=== PATIENT | female | born 2000 | race Caucasian/White ===

== ENCOUNTER 2020-02-20 05:19 | Emergency (ER) | payer OTHER, SELFPAY ==
[2020-02-20] VITALS (8 sets, daily range): BP systolic 103–125; BP diastolic 55–89; PULSE 63–92; RESP 12–16; TEMP 36.7; O2SAT 95–98
--- NOTE | ~2020-02-20 | CT_ITS ---
EXAMINATION: CTA chest PE abdomen pel DATE: 02/20/2020 07:50 CDT INDICATION: Left abdomen pain and dyspnea. TECHNIQUE: Computed tomographic angiography (CTA) of the chest, abdomen and pelvis was performed with 100 mL Omnipaque-350 intravenous contrast. The dose-length product was 1613.01 mGy-cm. Maximum inten sity projection 3D-reconstructions of the aorta and other arteries were constructed by the [employer] st on a separate workstation. Automated exposure control and iterative reconstruction technique were employed. COMPARISON: CT dated 02/01/2019 FINDINGS: Chest: Study is technically adequate without evidence for pulmonary embolism. No significant pleural or michael cardial effusion. No evidence for thoracic aortic aneurysm or dissection. No focal airspace consolida tion. No pleural effusion. No pneumothorax. Abdomen/pelvis: Small focus of epiploic appendagitis adjacent to distal sigmoid colon. Fatty infiltration of the live r. Status post cholecystectomy. Nonobstructive bowel gas pattern. No free air. No abscess. No evidenc e for diverticulitis or appendicitis. Small amount of free fluid in the pelvis. Small hypodense lesio n right hepatic lobe, most likely cyst or hemangioma. IMPRESSION: 1. No acute cardiopulmonary disease. No evidence for pulmonary embolism. 2: Small focus of epiploic appendagitis adjacent to distal sigmoid colon. Reviewed, dictated and finalized at location A.
[2020-02-20 05:44] LABS: Basophils Percent Auto 0.2 % (0.2-1.2); Eosinophils Absolute Auto 0.1 K/mm3 (0-0.3); Eosinophils Percent Auto 1.3 % (0-4.4); Hematocrit 39.5 % (37.0-47.0); Hemoglobin 13.2 g/dL (12.0-15.0); Immature Granulocyte Absolute 0.01 K/mm3 (0.00-0.031); Immature Granulocyte Percent A 0.1 % (0-0.5); Lymphocytes Absolute Auto 2.65 K/mm3 (0.9-3.2); Lymphocytes Percent Auto 31.5 % (18.3-44.2); Mean Corpuscular HGB Conc 33.4 g/dl (32-36); Mean Corpuscular Hemoglobin 29.3 pg (26-34); Mean Corpuscular Volume 87.6 fl (80-100); Mean Platelet Volume 10.9 fl (7.4-10.4); Monocytes Absolute Auto 0.5 K/mm3 (0.1-0.6); Monocytes Percent Auto 6.4 % (2.6-8.5); Neutrophils Absolute Auto 5.1 K/mm3 (1.3-6.7); Neutrophils Percent Auto 60.5 % (45.5-73.1); Platelet Count Result 350 k/mm3 (150-375); Red Blood Count 4.51 M/mm3 (4.2-5.4); Red Cell Distribution Width 12.9 % (11.5-14.5); White Blood Count 8.4 K/mm3 (4.5-10.0)
[2020-02-20 05:46] LABS: Add Urine Microscopic? NO; Appearance Urine Clear (Clear); Bilirubin Urine Negative (Negative); Blood Urine Negative (Negative); Color Urine Yellow (Yellow); Glucose Urine UA Negative (Negative); Ketones Urine Negative (Negative); Leukocyte Esterase Ur Negative LEU/UL (Negative); Nitrate Urine Negative (Negative); Protein Urine Negative (Negative); Specific Grav Ur 1.024 (1.001-1.035); Urobilinogen Urine Negative mg/dL (<2.0)
--- NOTE | 2020-02-20 05:51 | ED.ABDPAIN ---
HPI - Abdominal Pain General Chief Complaint: Abdominal Pain Stated Complaint: abd cramps Time Seen by Provider: 02/20/20 05:21 Source: patient Mode of arrival: ambulatory Limitations: no limitations History of Present Illness HPI narrative: This patient is a 20 year old female with history of pancreatitis who presents for evaluation of left abdominal pain. She states she developed pain to left upper abdomen and left lower abdomen yesterday. Her pain has been constant and it has gradually worsened. She developed nausea and she had 2 episodes of emesis on her way to ER. She has not taken anything for pain . She denies urinary symptoms, fever, or chills. This does feel similar to previous episodes of pancreatitis MD elicited complaint: abdominal pain Related Data Home Medications Medication Instructions Recorded Confirmed propranolol 40 mg tablet 40 mg PO Q12H 08/14/19 Allergies Allergy/AdvReac Type Severity Reaction Status Date / Time ketorolac Allergy Severe Anaphylactic Verified 02/20/20 05:28 Shock tramadol Allergy Unknown Unknown Verified 02/20/20 05:28 Review of Systems Review of Systems: All systems reviewed & are unremarkable except as noted in HPI and below Constitutional: Constitutional: Reports chills, Denies fever(s) and Denies weakness Respiratory: Respiratory: Denies cough Gastrointestinal: Gastrointestinal: Reports abdominal pain, Denies diarrhea, Reports nausea and Reports vomiting Genitourinary: Genitourinary: Denies hematuria, Denies nocturia and Denies dysuria PMF Past Medical History Medical History (Updated 02/20/20 @ 07:41 by Daniella Mike MD) Anxiety Migraine Pancreatitis Surgical History Surgical History History of cholecystectomy History of tonsillectomy Social History Social History Smoking status: Never smoker Second hand tobacco smoke exposure: No Alcohol intake: never Exam Narrative: Exam Narrative: GENERAL: Well-appearing, well-nourished, and in no acute distress. HEAD: Normocephalic, atraumatic EYES: PERRLA and EOMI, conjunctiva clear without discharge THROAT:Mucous membranes moist, Oropharynx normal without erythema, exudate, peritonsillar swelling or fluctuance NECK: Supple, without lymphadenopathy or mass RESPIRATORY: No respiratory distress, Airway patent, Respirations non-labored, Clear to auscultation without rales, rhonchi or wheeze HEART: Regular rate and rhythm. No murmur heard. Normal peripheral pulses. ABDOMEN: Soft,LUq, LLQ, epigastric, nondistended, normal active bowel sounds. No masses. No rebound or guarding, No organomegaly. EXTREMITIES: No edema, normal strength with full range of motion. SKIN: Warm, dry, normal color without rash NEURO: Alert and oriented x3. CN 2-12 grossly intact. No focal deficits. PSYCH: Normal mood and affect. Course Reevaluation(s) Reevaluation #1: PAtient states she develop substernal chest pain sharp after pain medication and then her pain resolved. She is concerned as she had similar pain when she was diagnosed with PE Date: 02/20/20 Time: 06:14 Reevaluation #2: PAtient states she feels better Date: 02/20/20 Time: 07:36 Vital Signs Vital signs: Vital Signs Temperature 98.1 F 02/20/20 05:23 Pulse Rate 92 02/20/20 05:23 Respiratory Rate 15 02/20/20 05:23 Blood Pressure 125/89 02/20/20 05:23 Pulse Oximetry 97 02/20/20 05:23 Temperature 98.1 F 02/20/20 05:23 Pulse Rate 87 02/20/20 07:13 Respiratory Rate 16 02/20/20 07:13 Blood Pressure 107/72 02/20/20 07:13 Pulse Oximetry 98 02/20/20 07:13 MDM - Abdominal Pain Lab Data Attestation: I reviewed the patient's lab results. Result diagrams: 02/20/20 05:34 02/20/20 05:34 Labs: Lab Results 02/20/20 02/20/20 02/20/20 Range/Units 05:34 05:34 05:34
[2020-02-20] MEDS: ONDANSETRON INJ 4 MG/2 ML VIAL IV PUSH (05:56)
[2020-02-20 05:57] LABS: Potassium 3.7 mmol/L (3.4-5.0)
[2020-02-20] MEDS: LACTATED RINGERS 1,000 ML 999 ML IV CONT (05:58)
[2020-02-20] MEDS: HYDROMORPHONE HCL 1 MG/ML INJ IV PUSH (05:58)
[2020-02-20 05:59] LABS: Alanine Aminotransferase 18 U/L (4-35); Albumin Level 4.3 g/dL (3.5-5.1); Alkaline Phosphatase 80 U/L (38-126); Aspartate Amino Transferase 24 U/L (14-36); Bilirubin,Total 0.1 mg/dL (0.2-1.3); Blood Urea Nitrogen 12 mg/dL (7-17); Calcium 9.2 mg/dL (8.4-10.2); Carbon Dioxide 28 mmol/L (22-30); Chloride 102 mmol/L (98-107); Estimated Glomerular Filt Rate > 60; Glucose 97 mg/dL (65-105); Lipase 65 U/L (23-300); Sodium 136 mmol/L (137-145)
--- NOTE | 2020-02-20 06:14 | PC.NURSE ---
Pt. to CT
--- NOTE | 2020-02-20 06:35 | ECG_ITS ---
Measurements Intervals [place] Rate: 68 P: 34 DE: 157 QRS: 34 QRSD: 101 T: 35 QT: 433 QTc: 462 Interpretive Statements SINUS RHYTHM INCOMPLETE RIGHT BUNDLE BRANCH BLOCK BASELINE ARTIFACT- I, II BORDERLINE ECG Electronically Signed On 02-20-2020 7:14:52 CDT by Georges Browning D.O.
== END 2020-02-20 08:12 | disposition home or self-care (01) ==
PROVIDERS: Emergency Provider General Practice; PCP Family Medicine
DX: K63.89 Other specified diseases of intestine (principal); Z86.711 Personal history of pulmonary embolism; I45.10 Unspecified right bundle-branch block
CPT/HCPCS: 36415; 71275; 74177; 80053; 81003; 81025; 83690; 85025; 93005; 96361; 96374; 96375; 99284; J1170; J2405; J7120; Q9967

== ENCOUNTER 2020-02-20 17:56 | Emergency (ER) | payer OTHER, SELFPAY ==
[2020-02-20 17:58] VITALS: BP 116/76; PULSE 80; RESP 18; TEMP 36.2; O2SAT 100
[2020-02-20 18:33] LABS: Basophils Percent Auto 0.5 % (0.2-1.2); Eosinophils Absolute Auto 0.1 K/mm3 (0-0.3); Eosinophils Percent Auto 2.1 % (0-4.4); Hematocrit 39.1 % (37.0-47.0); Hemoglobin 12.9 g/dL (12.0-15.0); Immature Granulocyte Absolute 0.02 K/mm3 (0.00-0.031); Immature Granulocyte Percent A 0.3 % (0-0.5); Lymphocytes Absolute Auto 1.63 K/mm3 (0.9-3.2); Lymphocytes Percent Auto 26.9 % (18.3-44.2); Mean Corpuscular Hemoglobin 29.1 pg (26-34); Mean Corpuscular Volume 88.1 fl (80-100); Monocytes Absolute Auto 0.4 K/mm3 (0.1-0.6); Monocytes Percent Auto 6.6 % (2.6-8.5); Neutrophils Absolute Auto 3.8 K/mm3 (1.3-6.7); Neutrophils Percent Auto 63.6 % (45.5-73.1); Platelet Count Result 321 k/mm3 (150-375); Red Blood Count 4.44 M/mm3 (4.2-5.4); White Blood Count 6.1 K/mm3 (4.5-10.0)
[2020-02-20 18:45] LABS: Add Urine Microscopic? NO; Appearance Urine Clear (Clear); Bilirubin Urine Negative (Negative); Blood Urine Negative (Negative); Color Urine Yellow (Yellow); Glucose Urine UA Negative (Negative); Ketones Urine Negative (Negative); Leukocyte Esterase Ur Negative LEU/UL (Negative); Nitrate Urine Negative (Negative); Protein Urine Negative (Negative); Specific Grav Ur 1.028 (1.001-1.035); Urobilinogen Urine Negative mg/dL (<2.0)
[2020-02-20 18:45] LABS: Alanine Aminotransferase 18 U/L (4-35); Alkaline Phosphatase 84 U/L (38-126); Aspartate Amino Transferase 26 U/L (14-36); Bilirubin,Total 0.4 mg/dL (0.2-1.3); Blood Urea Nitrogen 8 mg/dL (7-17); Calcium 8.5 mg/dL (8.4-10.2); Carbon Dioxide 27 mmol/L (22-30); Chloride 104 mmol/L (98-107); Estimated CRCL calculation 159 ml/min; Estimated Glomerular Filt Rate > 60; Glucose 90 mg/dL (65-105); Lipase 53 U/L (23-300); Sodium 136 mmol/L (137-145)
--- NOTE | 2020-02-20 18:46 | ED.ABDPAIN ---
HPI - Abdominal Pain General Chief Complaint: Abdominal Pain Stated Complaint: Abd pain Time Seen by Provider: 02/20/20 18:28 Source: patient History of Present Illness HPI narrative: Patient is 20 years old white female presents with left lower abdominal pain started 2 days ago, sharp shooting pain, varies in intensity according to her position and the way she sits or stands. Associated with nausea and vomiting up to 4 times today. Last menstrual. 1 week ago. Patient came to our emergency room and was discharged early this morning with a diagnosis of epiploic appendagitis. Patient been taking Tylenol at home without any improvement. Back to the emergency room for uncontrolled abdominal pain. Related Data Home Medications Medication Instructions Recorded Confirmed propranolol 40 mg tablet 40 mg PO PRN PRN 08/14/19 Allergies Allergy/AdvReac Type Severity Reaction Status Date / Time ketorolac Allergy Severe Anaphylactic Verified 02/20/20 18:01 Shock tramadol Allergy Unknown Unknown Verified 02/20/20 18:01 Review of Systems Review of Systems: Narrative: CONSTITUTIONAL: Denies fever, chills, or sweats. EYES: Denies visual changes, redness, or discharge. ENT: Denies rhinorrhea, congestion, sore throat, or otalgia. CARDIOVASCULAR: Denies chest pain, palpitations, or edema. RESPIRATORY: Denies cough or dyspnea. GASTROINTESTINAL: Abdominal pain and vomiting GENITOURINARY: Denies dysuria or hematuria. SKIN: Denies rash or itching. MUSCULOSKELETAL: Denies back pain, joint pain, or myalgia. NEUROLOGIC: Denies headache, numbness, or weakness. PSYCHIATRIC: Denies anxiety or depression. [facility] Past Medical History Medical History Anxiety Migraine Pancreatitis Surgical History Surgical History History of cholecystectomy History of tonsillectomy Family History Family History Father Diabetes mellitus Patient's father is in good health Grandparent Diabetes mellitus Hypertension Mother Patient's mother is in good health Sibling Patient's sister is in good health Social History Social History Smoking status: Never smoker Second hand tobacco smoke exposure: No Alcohol intake: never Gender identity (if verbalized by the patient): Female Exam Narrative: Exam Narrative: General appearance: Well-developed, well-nourished. Patient laying down in bed, looks comfortable, no family member at the bedside. Skin: Normal color Head: Normocephalic, nontraumatic Eyes: Clear conjunctiva ENT: Oropharynx normal, ears normal, nose normal Neck: Supple, nontender Chest and respiratory: Airway patent, no respiratory distress, no accessory muscle use Heart: Regular rate/rhythm Abdomen: Soft, left lower quadrant tenderness, no guarding or rebound, epigastric and right upper quadrant tenderness., no organomegaly, quiet bowel sounds Vascular: Normal peripheral pulses, normal capillary refill. Musculoskeletal: Normal range of motion, nontender back Neurologic: Alert and oriented ?3, PIPE FITTER SOFT COPPER is normal as tested, no gross motor deficit Course Course Emergency Course: Improving. Patient reports it is okay to take ibuprofen, cannot take Toradol because causing tightness in her throat. Vital Signs Vital signs: Vital Signs Temperature 36.2 C L 02/20/20 17:58 Pulse Rate 80 02/20/20 17:58 Respiratory Rate 18 02/20/20 17:58 Blood Pressure 116/76 02/20/20 17:58 Pulse Oximetry 100 02/20/20 17:58 Temperature 36.2 C L 02/20/20
[2020-02-20 19:31] VITALS: BP 122/80; PULSE 80; RESP 20; TEMP 36.7; O2SAT 99
== END 2020-02-20 19:33 | disposition home or self-care (01) ==
PROVIDERS: Emergency Medicine; Emergency Provider Emergency Medicine; PCP Family Medicine
DX: K63.89 Other specified diseases of intestine (principal)
CPT/HCPCS: 36415; 80053; 81003; 81025; 83690; 85025; 99283

== ENCOUNTER 2020-05-05 12:42 | Outpatient (CLI) | payer OTHER, SELFPAY ==
--- NOTE | ~2020-05-05 | XR_ITS ---
EXAMINATION: XR abdomen/kub 1V DATE: 05/05/2020 13:01 INDICATION: Inability to urinate. TECHNIQUE: A supine view of the abdomen on 2 radiographs was obtained. COMPARISON: CT dated 02/20/2020 FINDINGS: No suspicious calcific a cyst in the abdomen or pelvis. Moderate amount of stool throughout the colon . No dilated gas-filled loops of bowel to suggest obstruction. Minimal lumbar dextrocurvature. IMPRESSION: 1. Normal bowel gas pattern. No evident urolithiasis. Reviewed, dictated and finalized at location B.
== END 2020-05-05 12:43 | disposition home or self-care (01) ==
PROVIDERS: PCP Family Medicine; Visit Provider Physician Assistant
DX: R39.9 Unspecified symptoms and signs involving the genitourinary system (principal)
CPT/HCPCS: 74018

== ENCOUNTER 2020-05-06 14:13 | Emergency (ER) | payer OTHER, SELFPAY ==
--- NOTE | ~2020-05-06 | CT_ITS ---
EXAMINATION: CT abdomen pelvis w con DATE: 05/06/2020 17:38 INDICATION: Lower abdominal pain TECHNIQUE: Computed tomography (CT) of the abdomen and pelvis was performed with 100 cc Omnipaque 350 intravenous contrast. Automated exposure control and iterative reconstruction technique were employe d. Exam dose: 683.66 mGy-cm total exam DLP. COMPARISON: 02/20/2020 CTA chest abdomen pelvis FINDINGS: The lung bases are clear. Normal heart size. No pericardial or pleural effusion. Status post cholecystectomy. 5 mm right hepatic cyst. The liver, spleen, pancreas, and adrenal glands and kidneys are otherwise un remarkable. Normal caliber of the abdominal aorta. No intraperitoneal or retroperitoneal or pelvic mass lesion or adenopathy or ascites. Normal appendix. No bowel obstruction, bowel wall thickening, pneumatosis or intraperitoneal free air . The uterus is unremarkable. 2.2 x 3.3 cm right ovarian cyst. Transitional lumbosacral vertebra. IMPRESSION: 2.2 x 3.3 cm right ovarian cyst 5 mm hepatic cyst Status post cholecystectomy Reviewed, dictated and finalized at [facility]. Reviewed, dictated and finalized at location A.
[2020-05-06 14:19] VITALS: BP 143/82; PULSE 104; RESP 16; TEMP 36.4; O2SAT 100
[2020-05-06 15:19] LABS: Add Urine Microscopic? YES; Appearance Urine Clear (Clear); Bilirubin Urine Negative (Negative); Blood Urine Negative (Negative); Color Urine Yellow (Yellow); Glucose Urine UA Negative (Negative); Ketones Urine Negative (Negative); Leukocyte Esterase Ur 1+ LEU/UL (Negative); Mucus Urine Heavy /lpf; Nitrate Urine Negative (Negative); Protein Urine Negative (Negative); Specific Grav Ur 1.027 (1.001-1.035); Squamous Epithelial Cell Urine Many /hpf (Few); Urobilinogen Urine Negative mg/dL (<2.0)
--- NOTE | 2020-05-06 16:37 | ED.ABDPAIN ---
HPI - Abdominal Pain General Chief Complaint: Urogenital-Female Stated Complaint: difficulty urinating Time Seen by Provider: 05/06/20 14:39 Source: patient Mode of arrival: ambulatory Limitations: no limitations History of Present Illness HPI narrative: 20 years old white female, complaining of lower abdominal pain with no urination over the last 3 days. Patient reports been voiding with drops of urine, which is very painful over the last 3 days. Patient reports a drink enough fluids without good urine output. Associated with lower abdominal pain radiating to the lower back pain. Patient denies any fever, chills, nausea, vomiting. Patient denies similar symptoms. Patient also denies any vaginal bleeding or discharge. Related Data Allergies Allergy/AdvReac Type Severity Reaction Status Date / Time ketorolac Allergy Severe Anaphylactic Verified 05/06/20 14:22 Shock Review of Systems Review of Systems: Narrative: CONSTITUTIONAL: Denies fever, chills, or sweats. EYES: Denies visual changes, redness, or discharge. ENT: Denies rhinorrhea, congestion, sore throat, or otalgia. CARDIOVASCULAR: Denies chest pain, palpitations, or edema. RESPIRATORY: Denies cough or dyspnea. GASTROINTESTINAL: Denies abdominal pain, nausea, vomiting, or diarrhea. GENITOURINARY: Denies dysuria or hematuria. SKIN: Denies rash or itching. MUSCULOSKELETAL: Denies back pain, joint pain, or myalgia. NEUROLOGIC: Denies headache, numbness, or weakness. PSYCHIATRIC: Denies anxiety or depression. PMFSH Social History Social History Smoking status: Never smoker Second hand tobacco smoke exposure: No Alcohol intake: never Gender identity (if verbalized by the patient): Female Exam Narrative: Exam Narrative: General appearance: Well-developed, well-nourished Skin: Normal color Head: Normocephalic, nontraumatic Eyes: Clear conjunctiva ENT: Oropharynx normal, ears normal, nose normal Neck: Supple, nontender Chest and respiratory: Airway patent, no respiratory distress, no accessory muscle use Heart: Regular rate/rhythm Abdomen: Soft, diffuse tenderness of the lower abdomen bilaterally, slight guarding, no rebound, quiet bowel sounds Vascular: Normal peripheral pulses, normal capillary refill. Musculoskeletal: Normal range of motion, nontender back Neurologic: Alert and oriented ?3, ORDER EXPEDITER is normal as tested, no gross motor deficit Course Course Emergency Course: Stable Vital Signs Vital signs: Vital Signs Temperature 36.4 C L 05/06/20 14:19 Pulse Rate 104 H 05/06/20 14:19 Respiratory Rate 16 05/06/20 14:19 Blood Pressure 143/82 H 05/06/20 14:19 Pulse Oximetry 100 05/06/20 14:19 Temperature 36.4 C L 05/06/20 14:19 Pulse Rate 104 H 05/06/20 14:19 Respiratory Rate 16 05/06/20 14:19 Blood Pressure 143/82 H 05/06/20 14:19 Pulse Oximetry 100 05/06/20 14:19 MDM - Abdominal Pain MDM Narrative Medical decision making narrative: Urinary retention, urinary tract infection, kidney stone are my concern. Labs, CT abdomen and pelvis with IV contrast ordered. Further plan to follow Blood work-up showed no acute abnormality, CT scan of the abdomen and pelvis with IV contrast showed no acute abnormality except right ovarian cyst and right hepatic cyst which I do not believe has anything to do with patient presentation. Patient denies any vaginal discharge, the nurse who placed Harrington catheter in then removed told me that there is no abnormality as far as skin rash or discharge during the procedure. My diagnosis is dysuria of unknown etiology. Patient will be referred to urologist for further man
[2020-05-06 17:01] LABS: Basophils Percent Auto 0.3 % (0.2-1.2); Eosinophils Absolute Auto 0.1 K/mm3 (0-0.3); Eosinophils Percent Auto 0.7 % (0-4.4); Hematocrit 40.4 % (37.0-47.0); Hemoglobin 13.2 g/dL (12.0-15.0); Immature Granulocyte Absolute 0.02 K/mm3 (0.00-0.031); Immature Granulocyte Percent A 0.3 % (0-0.5); Lymphocytes Absolute Auto 1.62 K/mm3 (0.9-3.2); Lymphocytes Percent Auto 22.8 % (18.3-44.2); Mean Corpuscular HGB Conc 32.7 g/dl (32-36); Mean Corpuscular Hemoglobin 28.8 pg (26-34); Mean Corpuscular Volume 88.2 fl (80-100); Mean Platelet Volume 11.2 fl (7.4-10.4); Monocytes Absolute Auto 0.4 K/mm3 (0.1-0.6); Monocytes Percent Auto 5.8 % (2.6-8.5); Neutrophils Percent Auto 70.1 % (45.5-73.1); Platelet Count Result 312 k/mm3 (150-375); Red Blood Count 4.58 M/mm3 (4.2-5.4); Red Cell Distribution Width 12.6 % (11.5-14.5); White Blood Count 7.1 K/mm3 (4.5-10.0)
[2020-05-06 17:13] LABS: Alanine Aminotransferase 14 U/L (4-35); Alkaline Phosphatase 84 U/L (38-126); Anion Gap 7 mmol/L (8-16); Aspartate Amino Transferase 21 U/L (14-36); Bilirubin,Total 0.5 mg/dL (0.2-1.3); Blood Urea Nitrogen 11 mg/dL (7-17); Calcium 8.8 mg/dL (8.4-10.2); Carbon Dioxide 26 mmol/L (22-30); Chloride 104 mmol/L (98-107); Estimated CRCL calculation 158 ml/min; Estimated Glomerular Filt Rate > 60; Glucose 88 mg/dL (65-105); Lipase 45 U/L (23-300); Potassium 3.9 mmol/L (3.4-5.0); Sodium 137 mmol/L (137-145)
[2020-05-06] MEDS: MORPHINE SULFATE 4 MG/ML INJ IV PUSH (17:46)
[2020-05-06 18:24] VITALS: BP 132/61; PULSE 87; RESP 16; TEMP 36.5; O2SAT 98
== END 2020-05-06 18:25 | disposition home or self-care (01) ==
PROVIDERS: Emergency Provider Emergency Medicine; PCP Family Medicine
DX: R10.30 Lower abdominal pain, unspecified (principal); R30.0 Dysuria
CPT/HCPCS: 36415; 74177; 80053; 81001; 81025; 83690; 85025; 96374; 99284; J2270; Q9967

== ENCOUNTER 2020-09-02 00:30 | Emergency (ER) | payer OTHER, SELFPAY ==
--- NOTE | ~2020-09-02 | CT_ITS ---
EXAMINATION: CTA chest PE protocol DATE: 09/02/2020 02:02 INDICATION: Chest pain, history of pulmonary emboli TECHNIQUE: Computed tomography angiography (CTA) of the chest was performed with 100 mL Omnipaque-350 intravenous contrast timed to evaluate the pulmonary arteries. Coronal maximum intensity projection 3D-reconstructions were created by the technologist. The dose-length product (DLP) was 362.82 mGy-cm. Automated exposure control and iterative reconstruction technique were employed. COMPARISON: None. FINDINGS: The pulmonary arteries are well-opacified. No pulmonary embolism is identified. The lungs a re free of acute opacities. There is no pleural effusion or pneumothorax. No pathologically enlarged thoracic lymph nodes are identified. The heart size is normal. The gallbladder is surgically absent. IMPRESSION: 1. No pulmonary embolism or acute cardiopulmonary abnormality. Reviewed, dictated and finalized at location A. RITY MANAGER
[2020-09-02 00:34] VITALS: BP 122/93; PULSE 129; RESP 14; O2SAT 96
--- NOTE | 2020-09-02 00:40 | ECG_ITS ---
Measurements Intervals [place] Rate: 109 P: 42 MN: 126 QRS: 69 QRSD: 82 T: 27 QT: 321 QTc: 434 Interpretive Statements SINUS TACHYCARDIA BORDERLINE ST ABNORMALITY- ANTEROLAT/INF LEADS BASELINE ARTIFACT- II, III, AVF ABNORMAL ECG Electronically Signed On 09-02-2020 8:10:59 RADIO TOWER TECHNICIAN by Georges Browning D.O.
[2020-09-02 00:52] LABS: Basophils Percent Auto 0.4 % (0.2-1.2); Eosinophils Absolute Auto 0.1 K/mm3 (0-0.3); Eosinophils Percent Auto 1.6 % (0-4.4); Hematocrit 40.8 % (37.0-47.0); Hemoglobin 14.4 g/dL (12.0-15.0); Immature Granulocyte Absolute 0.01 K/mm3 (0.00-0.031); Immature Granulocyte Percent A 0.2 % (0-0.5); Lymphocytes Absolute Auto 1.77 K/mm3 (0.9-3.2); Lymphocytes Percent Auto 31.6 % (18.3-44.2); Mean Corpuscular HGB Conc 35.3 g/dl (32-36); Mean Corpuscular Hemoglobin 29.6 pg (26-34); Mean Corpuscular Volume 83.8 fl (80-100); Mean Platelet Volume 10.5 fl (7.4-10.4); Monocytes Absolute Auto 0.5 K/mm3 (0.1-0.6); Monocytes Percent Auto 8.2 % (2.6-8.5); Neutrophils Absolute Auto 3.3 K/mm3 (1.3-6.7); Platelet Count Result 356 k/mm3 (150-375); Red Blood Count 4.87 M/mm3 (4.2-5.4); Red Cell Distribution Width 12.6 % (11.5-14.5); White Blood Count 5.6 K/mm3 (4.5-10.0)
[2020-09-02] MEDS: METOCLOPRAMIDE HCL INJ 10 MG/2 ML VIAL IV PUSH (01:03)
[2020-09-02] MEDS: SODIUM CHLORIDE 0.9% IV 1,000 ML 999 ML IV CONT (01:05)
[2020-09-02 01:10] LABS: Alanine Aminotransferase 14 U/L (4-35); Albumin Level 3.9 g/dL (3.5-5.1); Alkaline Phosphatase 75 U/L (38-126); Anion Gap 9 mmol/L (8-16); Aspartate Amino Transferase 20 U/L (14-36); Bilirubin,Total 0.5 mg/dL (0.2-1.3); Blood Urea Nitrogen 5 mg/dL (7-17); Calcium 9.2 mg/dL (8.4-10.2); Carbon Dioxide 25 mmol/L (22-30); Chloride 100 mmol/L (98-107); Estimated CRCL calculation 187 ml/min; Estimated Glomerular Filt Rate > 60; Glucose 92 mg/dL (65-105); Lipase 96 U/L (23-300); Potassium 3.5 mmol/L (3.4-5.0); Sodium 134 mmol/L (137-145)
[2020-09-02 01:12] LABS: D Dimer 0.59 ug/mL (<0.48)
[2020-09-02 02:05] LABS: Troponin I < 0.012 ng/mL (0.000-0.034)
[2020-09-02 02:22] LABS: Add Urine Microscopic? YES; Appearance Urine Cloudy (Clear); Bilirubin Urine 1+ (Negative); Blood Urine 2+ (Negative); Color Urine Amber (Yellow); Glucose Urine UA Negative (Negative); Ketones Urine 1+ mg/dL (Negative); Leukocyte Esterase Ur 2+ LEU/UL (Negative); Mucus Urine Heavy /lpf; Nitrate Urine Negative (Negative); Protein Urine 2+ mg/dL (Negative); Squamous Epithelial Cell Urine Many /hpf (Few); WBC Urine 31-50 /hpf
[2020-09-02 02:23] LABS: Specific Grav Ur 1.033 (1.001-1.035)
--- NOTE | 2020-09-02 02:40 | ED.GENADULT ---
HPI - General Adult General Chief complaint: Nausea/Vomiting/Diarrhea Stated complaint: nausea/vomiting/ Time Seen by Provider: 09/02/20 00:45 History of Present Illness HPI narrative: Patient a 20-year-old female who presents the emerge department with chief complaint of nausea and vomiting and chest pain. Patient reports she is currently and has had multiple episodes of vomiting throughout this . Patient states that she also has history of factor V Leiden and was started on Lovenox injections. The patient states that after she been vomiting she had an episode of chest pain and was concerned that she may have had a pulmonary embolism tonight. Related Data Allergies Allergy/AdvReac Type Severity Reaction Status Date / Time ketorolac Allergy Severe Anaphylactic Verified 08/11/20 12:17 Shock Review of Systems Review of Systems: Narrative: A 10 system review of systems was completed on the patient and is negative except for what is stated in the HPI. Nursing and ancillary documentation was reviewed. [facility] Past Medical History Medical History (Updated 09/02/20 @ 02:50 by Herber Purdy MD) Anxiety Migraine Pancreatitis Surgical History Surgical History History of cholecystectomy History of tonsillectomy Family History Family History Father Diabetes mellitus Patient's father is in good health Grandparent Diabetes mellitus Hypertension Mother Patient's mother is in good health Sibling Patient's sister is in good health Social History Social History Smoking status: Never smoker Second hand tobacco smoke exposure: No Alcohol intake: never Gender identity (if verbalized by the patient): Female Exam Narrative: Exam Narrative: GENERAL: Well-appearing, well-nourished, and in no acute distress. HEAD: Normocephalic, atraumatic. EYES: PERRLA and EOMI. ENT: Nares clear, no rhinorrhea or epistaxis. Mucous membranes moist. NECK: Supple. CHEST: Clear to auscultation. No respiratory distress. HEART: Regular rate and rhythm. No murmur heard. Normal peripheral pulses. ABDOMEN: Soft, nontender, nondistended, normal active bowel sounds. EXTREMITIES: Normal range of motion. No edema. SKIN: Warm, dry, no rash. NEURO: No focal deficits. Alert and oriented x3. PSYCH: Normal mood and affect. Course Course Emergency Course: Patient received IV fluids and IV Reglan in the emergency room patient had a mildly elevated D-dimer. CTA of the chest was obtained which showed no evidence of pulmonary embolism Vital Signs Vital signs: Vital Signs Pulse Rate 129 H 09/02/20 00:34 Respiratory Rate 14 09/02/20 00:34 Blood Pressure 122/93 H 09/02/20 00:34 Pulse Oximetry 96 09/02/20 00:34 Pulse Rate 129 H 09/02/20 00:34 Respiratory Rate 14 09/02/20 00:34 Blood Pressure 122/93 H 09/02/20 00:34 Pulse Oximetry 96 09/02/20 00:34 Medical Decision Making Vital Signs Vital Signs: Vital Signs Pulse Rate 129 H 09/02/20 00:34 Respiratory Rate 14 09/02/20 00:34 Blood Pressure 122/93 H 09/02/20 00:34 Pulse Oximetry 96 09/02/20 00:34 Pulse Rate 129 H 09/02/20 00:34 Respiratory Rate 14 09/02/20 00:34 Blood Pressure 122/93 H 09/02/20 00:34 Pulse Oximetry 96 09/02/20 00:34 Lab Data Result diagrams: 09/02/20 00:46 09/02/20 00:46 Labs: Lab Results 09/02/20 09/02/20 09/02/20 Range/Units 00:46 00:46 00:46 WBC 5.6 (4.5-10.0) K/mm3 RBC 4.87 (4.2-5.4) M/mm3 Hgb 14.4 (12.0-15.0) g/dL Hct 40.8 (37.0-47.0) % MCV 83.8 (80-100) fl MCH 29.6 (26-34) pg MCHC 35.3 (32-36) g/dl RDW 12.6 (11.5-14.5) % Plt Count 356 (150-375) k/mm3 MPV 10.5 H (7.4-10.4) fl Immature Gran % (Au
[2020-09-02 03:05] VITALS: BP 135/77; PULSE 117; RESP 20; O2SAT 100
== END 2020-09-02 03:07 | disposition home or self-care (01) ==
PROVIDERS: Emergency Provider Emergency Medicine; PCP Family Medicine
DX: O21.9 Vomiting of pregnancy, unspecified (principal); O26.891 Other specified pregnancy related conditions, first trimester; R07.9 Chest pain, unspecified; O23.11 Infections of bladder in pregnancy, first trimester; O99.119 Other diseases of the blood and blood-forming organs and certain disorders involving the immune mechanism complicating pregnancy, unspecified trimester; D68.51 Activated protein C resistance; Z3A.12 12 weeks gestation of pregnancy; R00.0 Tachycardia, unspecified; R94.31 Abnormal electrocardiogram [ECG] [EKG]
CPT/HCPCS: 36415; 71275; 80053; 81001; 83690; 84484; 85025; 85380; 87086; 87088; 93005; 96361; 96374; 99284; J2765; J7030; Q9967

== ENCOUNTER 2020-10-15 22:17 | Observation (INO) | payer OTHER, SELFPAY ==
[2020-10-15] VITALS (10 sets, daily range): BP systolic 95–103; BP diastolic 65–77; PULSE 103–126; RESP 14–21; TEMP 36.5; O2SAT 94–98
--- NOTE | ~2020-10-15 | CT_ITS ---
EXAMINATION: CT abdomen pelvis wo con DATE: 10/16/2020 01:15 INDICATION: Right flank pain. 18 week gravid patient. TECHNIQUE: Computed tomography (CT) of the abdomen and pelvis was performed without intravenous contr ast. Automated exposure control and iterative reconstruction technique were employed. Exam dose: 585 .79 mGy-cm total exam DLP. COMPARISON: 05/06/[address] abdomen pelvis FINDINGS: The lung bases are clear of infiltrate or consolidation. Normal heart size. No pericardial or pleural effusion. Status post cholecystectomy. No hepatic, splenic, pancreatic or adrenal space-occupying mass lesion i s evident. There is moderately severe right hydroureteronephrosis. No left hydronephrosis. No urinary tract calc ulus is evident. Persistent lobation of the kidneys. No renal space occupying mass lesion is ev ident on this limited noncontrast examination. Normal caliber of the abdominal aorta. No intraperitoneal or retroperitoneal or pelvic mass lesion or adenopathy or ascites. No evidence of appendicitis or bowel obstruction, bowel wall thickening, pneumatosis or intraperitone al free air. Gravid uterus with single fetus in breech presentation. Transitional lumbosacral vertebra sacralization pseudoarthrosis on the left. Small fat-containing umbilical hernia. IMPRESSION: Right moderately severe hydroureteronephrosis, likely secondary to ; less likel y considerations would include recently passed stone or pyelonephritis Status post cholecystectomy cy Reviewed, dictated and finalized at [facility] Reviewed, dictated and finalized at [facility] [employer] IMPRESSION: Right moderately severe hydroureteronephrosis, likely secondary to ; less likely considerations would include recently passed stone or p yelonephritis Status post cholecystectomy cy
--- NOTE | 2020-10-15 22:31 | ED.ABDPAIN ---
HPI - Abdominal Pain General Chief Complaint: Abdominal Pain <Mj Robe Virgen - Last Filed: 10/16/20 00:11> Stated Complaint: 18 wks preg, abd pain and back pain <Mj Virgen - Last Filed: 10/16/20 00:11> Source: patient <Mj Virgen - Last Filed: 10/16/20 00:11> Mode of arrival: EMS <Mj Robe Virgen - Last Filed: 10/16/20 00:11> Limitations: no limitations <Mj DavisHoang Virgen - Last Filed: 10/16/20 00:11> History of Present Illness HPI narrative: 20-year-old female comes in by EMS to the emergency department with complaints of lower abdominal pain. She states that she is approximately 18 weeks . Patient notes that the pain starts in her right lower abdomen radiating up to the right flank. She denies any symptoms associated with urination or defecation. Patient states that the pain is a sharp stabbing pain. She notes that she has never experienced anything like this before. She does have a history of pancreatitis but states that this feels very different. Patient notes that she is a G3, . <Mj Robe Virgen - Last Filed: 10/16/20 00:11> Related Data Allergies/Adverse Reactions: Allergies Allergy/AdvReac Type Severity Reaction Status Date / Time ketorolac Allergy Severe Anaphylactic Verified 10/15/20 22:35 Shock diphenhydramine Allergy Other Verified 10/15/20 22:35 [From Benadryl] <Mj Virgen DO - Last Filed: 10/16/20 00:11> Review of Systems Review of Systems: Narrative: CONSTITUTIONAL: Denies fever, chills, or sweats. EYES: Denies visual changes, redness, or discharge. ENT: Denies rhinorrhea, congestion, sore throat, or otalgia. CARDIOVASCULAR: Denies chest pain, palpitations, or edema. RESPIRATORY: Denies cough or dyspnea. GASTROINTESTINAL: Denies nausea, vomiting, or diarrhea. Endorses right abdominal pain GENITOURINARY: Denies dysuria or hematuria. SKIN: Denies rash or itching. MUSCULOSKELETAL: Denies back pain, joint pain, or myalgia. NEUROLOGIC: Denies headache, numbness, dizziness, or weakness. PSYCHIATRIC: Denies anxiety or depression. <Mj Virgen DO - Last Filed: 10/16/20 00:11> [facility] Past Medical History Medical History: Medical History (Updated 10/16/20 @ 02:24 by Herber Purdy MD) Anxiety Migraine Pancreatitis <Mj Virgen DO - Last Filed: 10/16/20 00:11> Surgical History Surgical History: Surgical History History of cholecystectomy History of tonsillectomy <Mj Virgen DO - Last Filed: 10/16/20 00:11> Family History Family History: Family History Father Diabetes mellitus Patient's father is in good health Grandparent Diabetes mellitus Hypertension Mother Patient's mother is in good health Sibling Patient's sister is in good health <Mj Virgen DO - Last Filed: 10/16/20 00:11> Social History Social History: Social History Smoking status: Never smoker Second hand tobacco smoke exposure: No Alcohol intake: never Gender identity (if verbalized by the patient): Female <Mj Virgen DO - Last Filed: 10/16/20 00:11> Exam Narrative: Exam Narrative: GENERAL: Well-appearing, well-nourished, and in apparent pain. Crying, rolling about the bed. HEAD: Normocephalic, atraumatic. EYES: PERRLA and EOMI. ENT: Nares clear, no rhinorrhea or epistaxis. Mucous membranes moist. NECK: Supple. No adenopathy or masses. No carotid bruits or JVD CHEST: Clear to auscultation. No respiratory distress. No wheezes rales or rhonchi HEART: Tachycardic. No murmur heard. Normal peripheral pulses. ABDOMEN: Voluntary guarding, tender at the right lower quadrant, nondistended, normal active bowel sounds. Gravid uterus approximately 5 cm above the pubic symphysis EXTREMITIES: Normal range of motion.
[2020-10-15] MEDS: LACTATED RINGERS 2,000 ML 999 ML IV CONT (22:41)
[2020-10-15] MEDS: fentaNYL CITRATE INJ (*CRX) 100 MCG/2 ML VIAL 50 MCG IV PUSH ×2 (22:52→23:49)
[2020-10-15 23:08] LABS: Basophils Percent Auto 0.3 % (0.2-1.2); Eosinophils Absolute Auto 0.1 K/mm3 (0-0.3); Eosinophils Percent Auto 1.5 % (0-4.4); Hematocrit 33.9 % (37.0-47.0); Hemoglobin 11.6 g/dL (12.0-15.0); Immature Granulocyte Absolute 0.01 K/mm3 (0.00-0.031); Immature Granulocyte Percent A 0.2 % (0-0.5); Lymphocytes Absolute Auto 1.48 K/mm3 (0.9-3.2); Mean Corpuscular HGB Conc 34.2 g/dl (32-36); Mean Corpuscular Hemoglobin 29.4 pg (26-34); Mean Corpuscular Volume 85.8 fl (80-100); Mean Platelet Volume 10.2 fl (7.4-10.4); Monocytes Absolute Auto 0.4 K/mm3 (0.1-0.6); Neutrophils Absolute Auto 4.1 K/mm3 (1.3-6.7); Platelet Count Result 280 k/mm3 (150-375); Red Blood Count 3.95 M/mm3 (4.2-5.4); Red Cell Distribution Width 13.6 % (11.5-14.5); White Blood Count 6.2 K/mm3 (4.5-10.0)
--- NOTE | 2020-10-15 23:15 | PC.NURSE ---
Called OB, spoke with Radha to come see the patient.
[2020-10-15 23:23] LABS: Alanine Aminotransferase 10 U/L (4-35); Albumin Level 3.3 g/dL (3.5-5.1); Alkaline Phosphatase 53 U/L (38-126); Anion Gap 2 mmol/L (8-16); Aspartate Amino Transferase 18 U/L (14-36); Bilirubin,Total 0.3 mg/dL (0.2-1.3); Blood Urea Nitrogen 6 mg/dL (7-17); Calcium 8.7 mg/dL (8.4-10.2); Carbon Dioxide 28 mmol/L (22-30); Chloride 104 mmol/L (98-107); Estimated CRCL calculation 189 ml/min; Estimated Glomerular Filt Rate > 60; Glucose 92 mg/dL (65-105); Lipase 108 U/L (23-300); Potassium 3.4 mmol/L (3.4-5.0); Sodium 134 mmol/L (137-145)
[2020-10-16] VITALS (27 sets, daily range): BP systolic 71–141; BP diastolic 28–93; PULSE 72–146; RESP 12–22; TEMP 36.4–36.9; O2SAT 95–98; BMI 28.0
[2020-10-16 00:15] LABS: Add Urine Microscopic? YES; Appearance Urine Cloudy (Clear); Bilirubin Urine 1+ (Negative); Blood Urine Negative (Negative); Color Urine Yellow (Yellow); Glucose Urine UA Negative (Negative); Ketones Urine 1+ mg/dL (Negative); Leukocyte Esterase Ur 1+ LEU/UL (Negative); Mucus Urine Heavy /lpf; Nitrate Urine Negative (Negative); Protein Urine 2+ mg/dL (Negative); Squamous Epithelial Cell Urine Many /hpf (Few)
[2020-10-16 00:16] LABS: Specific Grav Ur 1.031 (1.001-1.035)
--- NOTE | 2020-10-16 00:19 | PC.NURSE ---
Patient stating she is having contractions, ERP notified and in room with patient.
[2020-10-16] MEDS: fentaNYL CITRATE INJ (*CRX) 100 MCG/2 ML VIAL 50 MCG IV PUSH (00:25)
[2020-10-16] MEDS: MORPHINE SULFATE (*CRX) 4 MG/ML INJ IV PUSH (00:46)
[2020-10-16] MEDS: MORPHINE SULFATE INJ (*CRX) 10 MG/ML AMP IM (01:54)
[2020-10-16] MEDS: MORPHINE SULFATE (*CRX) 2 MG/ML INJ 4 MG IV PUSH ×3 (04:02→09:34)
[2020-10-16] MEDS: ONDANSETRON INJ 4 MG/2 ML VIAL IV PUSH ×2 (04:03→20:15)
--- NOTE | 2020-10-16 04:12 | OBADM ---
This patient, Augusta Michaud, admitted to the OB room OB Post 115 for observation. Patient/family oriented to hospital policies and general routines including ID bracelet, bed and alarms, visiting hours, pain management, procedures, bathroom and other care routines, personal items, smoking policy, room service/diet, and visiting hours. Patient/Family are encouraged to report perceived risks to care and to ask questions if they do not understand what they are told or what they should do.
[2020-10-16] MEDS: SODIUM CHLORIDE 0.9% IV 1,000 ML 125 ML IV CONT ×3 (04:25→20:12)
--- NOTE | 2020-10-16 09:13 | PM.IMHP ---
H&P: HPI History of Present Illness Date/Time: 10/16/20 09:13 Chief Complaint: right sided flank pain Narrative: Augusta Michaud is a 20 yo @ 17.6wks (YEISON [birth year]) who presented with severe right sided flank pain that radiated down to the RLQ. She denies fever, dysuria, nausea, vomiting, constipation, contractions, vaginal bleeding, or leakage of fluid. She has h/o cholecystectomy. Labs were ultimately WNL in the ER; 3-5 RBC in urine. Pts pain was not controlled even with fentanyl or morphine so decision was made to proceed with CT scan. Right sided hydronephrosis was noted, no stone was seen. She has care at [facility] due to a complicated h/o PE, Factor V Leiden, h/o pancreatitis, and h/o complex migraines. No issues so far with this . Has h/o NVSD x1, MAB x1. Review of Systems Constitutional: Constitutional: Reports chills and Denies fever(s) Eyes: Eyes: Denies change in vision Cardiovascular: Cardiovascular: Denies chest pain and Denies rapid heart rate Respiratory: Respiratory: Denies cough and Denies dyspnea Gastrointestinal: Gastrointestinal: Denies constipation, Reports nausea and Denies vomiting Genitourinary: Genitourinary: Reports vaginal dryness and Reports vaginal pruritus Comments: no leakage of fluid or bleeding Musculoskeletal: Musculoskeletal: Reports back pain (radiating down to RLQ) Neurologic: Reports headache(s) (h/o complex migraines; none currently) Psychiatric: Psychiatric: Denies anxiety and Denies depression [facility] Past Medical History Medical History Anxiety Migraine Pancreatitis Surgical History Surgical History History of cholecystectomy History of tonsillectomy Family History Family History Father Diabetes mellitus Patient's father is in good health Grandparent Diabetes mellitus Hypertension Mother Patient's mother is in good health Sibling Patient's sister is in good health Social History Social History Smoking status: Never smoker Second hand tobacco smoke exposure: No Alcohol intake: never Gender identity (if verbalized by the patient): Female Meds Home Medications and Allergies Home Medications Medication Instructions Recorded Confirmed Type albuterol sulfate 90 mcg/actuation 1 puff INHALATION Q4H PRN #18 gm 09/16/19 10/16/20 Rx aerosol inhaler enoxaparin 40 mg SUBCUT DAILY 10/16/20 10/16/20 History terconazole 1 applic VAGINAL DAILY 10/16/20 10/16/20 History Allergies Allergy/AdvReac Type Severity Reaction Status Date / Time ketorolac Allergy Severe Anaphylactic Verified 10/15/20 22:35 Shock diphenhydramine Allergy Other Verified 10/15/20 22:35 [From Benjoselinryl] Vital Signs Vital Signs - 24 hr 10/15/20 22:17 10/15/20 22:25 10/15/20 22:32 Temperature 36.5 C Pulse Rate 113 H 114 H 113 H Respiratory Rate 20 14 17 Blood Pressure 95/77 L 103/77 Pulse Oximetry 98 96 97 10/15/20 22:33 10/15/20 22:45 10/15/20 23:00 Temperature Pulse Rate 112 H 126 H 103 H Respiratory Rate 21 H 15 Blood Pressure Pulse Oximetry 94 97 96 10/15/20 23:15 10/15/20 23:30 10/15/20 23:45 Temperature Pulse Rate 116 H 106 H 103 H Respiratory Rate 19 19 Blood Pressure 102/65 Pulse Oximetry 96 97 10/15/20 23:46 10/16/20 01:14 10/16/20 01:15 Temperature Pulse Rate 109 H 106 H 107 H Respiratory Rate 15 22 H Blood Pressure 120/84 Pulse Oximetry 97 96 96 10/16/20 01:16 10/16/20 01:30 10/16/20 01:31 Temperature Pulse Rate 106 H 119 H 111 H Respiratory Rate 12 12 Blood Pressure 123/84 Pulse Oximetry 96 97 98 10/16/20 01:45 10/16/20 02:01 10/16/20 02:15 Temperature Pulse Rate 109 H 103 H 107 H Respiratory Rate 19 14 16 Blood Pressure Pulse Ox
--- NOTE | 2020-10-16 09:40 | PC.NURSE ---
Dr. Jiménez at bedside to discuss plan of care with patient. Patient states understanding of plan of care and all questions were answered by Dr. Jiménez.
[2020-10-16] MEDS: TAMSULOSIN HCL 0.4 MG CAPSULE PO (09:42)
--- NOTE | 2020-10-16 09:47 | WPDHPUPDATE1 ---
History and Physical Update Update Date/Time: 10/16/20 09:47 History and Physical has been reviewed, including an updated exam of the patient. There are NO changes in the patient's condition. Risks, benefits, and alternatives have been discussed and questions answered. Patient agrees to proceed with procedure.
[2020-10-16] MEDS: oxyCODONE/ACETAMINOPHEN (*CRX) 5-325 MG TABLET 2 TABLET PO ×3 (12:18→23:36)
--- NOTE | 2020-10-16 13:25 | WPDURCON ---
Assessment and Plan Assessment and plan (1) Hydronephrosis: Qualifiers: Hydronephrosis type: unspecified Qualified Code(s): N13.30 - Unspecified hydronephrosis Code(s): N13.30 - Unspecified hydronephrosis Status: Acute Assessment and Plan: Mild right hydro without stone in an 18 week woman. I spoke to OB about this patient. Options are pain control and laying on left side as often as possible or placement of a ureteral stent. We discussed the procedure. We discussed that the stent would have to be exchanged at least once and likely twice prior to delivery and the risks associated with anesthetics. We discussed that inserting a foreign object has a risk of infection and that if we place a stent she'd need to be on ppx abx for the duration of her . We discussed that stents can be quite irritating themselves. She will consider options and see how she does tonight. She does not want to proceed at this time which is very reasonable. (2) Acute flank pain: Code(s): R10.9 - Unspecified abdominal pain Status: Acute Urology Consult Note HPI Date Seen: 10/16/20 Requesting Physician: Kaye Jiménez MD Primary Care Provider: Christina Kuo MD Consult Narrative Narrative: Augusta Michaud is a 20 year old female 18 wks who presented for right flank pain. CT was performed which showed mild right hydro with no stone and gravid uterus. No significant stranding. Urine with a few RBCs and WBCs but appears contaminated; no nit or bacteria. Pain has been difficult to control. Review of Systems Review of Systems: All systems reviewed & are unremarkable except as noted in HPI and below PMFSH Past Medical History Medical History Anxiety Migraine Pancreatitis Surgical History Surgical History History of cholecystectomy History of tonsillectomy Family History Family History Father Diabetes mellitus Patient's father is in good health Grandparent Diabetes mellitus Hypertension Mother Patient's mother is in good health Sibling Patient's sister is in good health Social History Social History Smoking status: Never smoker Second hand tobacco smoke exposure: No Alcohol intake: never Gender identity (if verbalized by the patient): Female Meds Home Medications and Allergies Home Medications Medication Instructions Recorded Confirmed Type albuterol sulfate 90 mcg/actuation 1 puff INHALATION Q4H PRN #18 gm 09/16/19 10/16/20 Rx aerosol inhaler enoxaparin 40 mg SUBCUT DAILY 10/16/20 10/16/20 History terconazole 1 applic VAGINAL DAILY 10/16/20 10/16/20 History Allergies Allergy/AdvReac Type Severity Reaction Status Date / Time ketorolac Allergy Severe Anaphylactic Verified 10/15/20 22:35 Shock diphenhydramine Allergy Other Verified 10/15/20 22:35 [From Benadryl] Vital Signs Vital Signs - 24 hr 10/15/20 22:17 10/15/20 22:25 10/15/20 22:32 Temperature 36.5 C Pulse Rate 113 H 114 H 113 H Respiratory Rate 20 14 17 Blood Pressure 95/77 L 103/77 Pulse Oximetry 98 96 97 10/15/20 22:33 10/15/20 22:45 10/15/20 23:00 Temperature Pulse Rate 112 H 126 H 103 H Respiratory Rate 21 H 15 Blood Pressure Pulse Oximetry 94 97 96 10/15/20 23:15 10/15/20 23:30 10/15/20 23:45 Temperature Pulse Rate 116 H 106 H 103 H Respiratory Rate 19 19 Blood Pressure 102/65 Pulse Oximetry 96 97 10/15/20 23:46 10/16/20 01:14 10/16/20 01:15 Temperature Pulse Rate 109 H 106 H 107 H Respiratory Rate 15 22 H Blood Pressure 120/84 Pulse Oximetry 97 96 96 10/16/20 01:16 10/16/20 01:30 10/16/20 01:31 Temperature Pulse Rate 106 H 119 H 111 H Respiratory Rate 12 12 Blood Pressure 123/84 Puls
--- NOTE | 2020-10-16 14:06 | PC.NURSE ---
Updated Dr. Jiménez of patient complaint of increased pain. No dose of pain medication is due. Orders received.
[2020-10-16] MEDS: MORPHINE SULFATE (*CRX) 2 MG/ML INJ IV PUSH ×2 (14:21→20:38)
[2020-10-16] MEDS: ENOXAPARIN 40 MG/0.4 ML SYRINGE SUB-Q (17:25)
[2020-10-16] MEDS: MICONAZOLE NITRATE 2% VAGINAL CREAM 45 GM TUBE 1 APPFUL VAGINAL (20:15)
[2020-10-17] MEDS: MORPHINE SULFATE (*CRX) 2 MG/ML INJ IV PUSH ×2 (02:36→13:27)
[2020-10-17] MEDS: SODIUM CHLORIDE 0.9% IV 1,000 ML 125 ML IV CONT (04:18)
[2020-10-17] MEDS: oxyCODONE/ACETAMINOPHEN (*CRX) 5-325 MG TABLET 2 TABLET PO ×2 (04:23→08:22)
[2020-10-17 06:15] VITALS: PULSE 82; O2SAT 100
[2020-10-17 06:17] VITALS: BP 99/57; PULSE 84; RESP 16; TEMP 36.6
--- NOTE | 2020-10-17 06:18 | PC.NURSE ---
Notified Dr. Jiménez of patient complaint of chest discomfort. Patient states she was woken up with discomfort in her chest on the left side that goes from anterior to posterior parts of her chest. VSS. Order received.
--- NOTE | 2020-10-17 06:22 | ECG_ITS ---
Measurements Intervals [place] Rate: 69 P: 16 CO: 150 QRS: 44 QRSD: 93 T: 16 QT: 397 QTc: 427 Interpretive Statements SINUS RHYTHM NORMAL ECG Electronically Signed On 10-17-2020 7:07:52 LEATHER COVERER by Georges Browning D.O.
[2020-10-17] MEDS: FAMOTIDINE 20 MG/2 ML VIAL IV PUSH (06:33)
[2020-10-17] MEDS: TAMSULOSIN HCL 0.4 MG CAPSULE PO (08:22)
--- NOTE | 2020-10-17 09:39 | PC.NURSE ---
Patient reevaluated by urology, patient does not desire stents and has been released from their services. Patient has spoken to her high risk physician at [facility] and patient is requesting to be transferred to [facility]. Plan discussed with patient and Dr. Jiménez has been called to discuss plan of care further. Message left with Dr. Jiménez.
[2020-10-17 10:04] LABS: Hematocrit 29.7 % (37.0-47.0); Hemoglobin 10.1 g/dL (12.0-15.0); Mean Corpuscular Hemoglobin 30.2 pg (26-34); Mean Corpuscular Volume 88.9 fl (80-100); Mean Platelet Volume 10.5 fl (7.4-10.4); Platelet Count Result 209 k/mm3 (150-375); Red Blood Count 3.34 M/mm3 (4.2-5.4); White Blood Count 5.7 K/mm3 (4.5-10.0)
[2020-10-17 10:18] LABS: Anion Gap -1 mmol/L (8-16); Calcium 7.4 mg/dL (8.4-10.2); Carbon Dioxide 28 mmol/L (22-30); Chloride 105 mmol/L (98-107); Estimated CRCL calculation 190 ml/min; Estimated Glomerular Filt Rate > 60; Glucose 72 mg/dL (65-105); Potassium 3.1 mmol/L (3.4-5.0); Sodium 132 mmol/L (137-145)
[2020-10-17 10:20] LABS: Blood Urea Nitrogen < 2 mg/dL (7-17)
--- NOTE | 2020-10-17 10:46 | PM.OBPNVD ---
OB - PN: Subj Subjective Date/time seen: 10/17/20 10:46 HD#2 Augusta reports the back pain is still present (improved but still present); no longer having any lower pelvic pain. Voiding w/o issue. Feeling movement. No vaginal bleeding or leakage of fluid. Tolerating regular diet. Minimal ambulation. Urology rounded on her again today; will wait on stent placement. Pt desires to be transferred to [facility] as that is where she receives her care w/ MFM. OB - PN: Obj Data Labs CBC & Chem 7: 10/17/20 09:52 10/17/20 09:52 Labs: Laboratory Results - last 24 hr 10/17/20 10/17/20 09:52 09:52 WBC 5.7 RBC 3.34 L Hgb 10.1 L Hct 29.7 L MCV 88.9 MCH 30.2 MCHC 34.0 RDW 14.0 Plt Count 209 MPV 10.5 H Sodium 132 L Potassium 3.1 L Chloride 105 Carbon Dioxide 28 Anion Gap -1 L BUN < 2 L Creatinine 0.40 L Estim Creat Clear Calc 190 Estimated GFR > 60 Glucose 72 Calcium 7.4 L OB - PN A/P Assessment and Plan (1) Hydronephrosis: Qualifiers: Hydronephrosis type: unspecified Qualified Code(s): N13.30 - Unspecified hydronephrosis Code(s): N13.30 - Unspecified hydronephrosis Status: Acute (2) Acute flank pain: Code(s): R10.9 - Unspecified abdominal pain Status: Acute (3) : Qualifiers: Weeks of gestation: unspecified Qualified Code(s): Z34.90 - Encounter for supervision of normal , unspecified, unspecified trimester Code(s): Z34.90 - Encounter for supervision of normal , unspecified, unspecified trimester Status: Acute (4) Intractable pain: Code(s): R52 - Pain, unspecified Status: Acute Plan Comments: - Vitals stable, afebrile; repeat Cr and WBC normal today - Urine culture negative; s/p rocephin x2-- will discontinue - S/p urology consult, will hold off on stent placement. Continue flowmax - Percocet 1-2 tabs q4h PRN; has been taking regularly; morphine 2mg IV q6h attempted to be stopped today but pt reports severe pain without it, will give dose prior to transfer - Pt desires to be transferred to [facility]. [facility] consulted and agree to transfer @ 1040; will transport via EMS. - heart checks q4hr normal Time Spent With Patient Time: Total time spent is greater than 50% in coordination of care (as documented) at patient's floor/unit and/or counseling patient: Review of Systems Constitutional: Constitutional: Denies chills and Denies fever(s) Eyes: Eyes: Denies change in vision Cardiovascular: Cardiovascular: Denies chest pain and Denies rapid heart rate Respiratory: Respiratory: Denies cough and Denies dyspnea Gastrointestinal: Gastrointestinal: Denies nausea and Denies vomiting Genitourinary: Genitourinary: Denies hematuria, Denies dysuria and Reports flank pain (Right side) Neurologic: Denies headache(s) Exam Const: General: cooperative and uncomfortable Resp: Effort & Inspection: normal respiratory effort and able to speak in complete sentences Cardio: Rate: regular rate GI: GI Palp: No abdominal tenderness and Yes Soft to palpation Auscultation: normal bowel sounds : Other: fundus soft at umbilicus Back/Spine/Pelvis: Back: CVA tenderness (right sided only) Skin: General skin exam: normal color Neuro: General: patient oriented x3 Extrem: General: normal to inspection Psych: Appearance: grossly normal Affect: normal affect Attitude: cooperative
--- NOTE | 2020-10-17 13:12 | WPDUROPN2 ---
Progress Note: A&P Assessment and Plan (1) Acute flank pain: Code(s): R10.9 - Unspecified abdominal pain Status: Acute Assessment and Plan: secondary to hydronephrosis, but no obstruction from stone is present. No recommendation for a stent, d/t it needing to be ongoing during and exchanged once or twice until with risk of infection and multiple antibiotics. The patient agrees and we will not proceed with a stent. Would recommend a CAROLINE after to ensure hydro resolves and pain resolves. No further recommendations at this time. Ok to discharge per Urology at anytime when patient is comfortable. (2) Hydronephrosis: Qualifiers: Hydronephrosis type: unspecified Qualified Code(s): N13.30 - Unspecified hydronephrosis Code(s): N13.30 - Unspecified hydronephrosis Status: Acute Subjective Subjective Date/Time Seen: 10/17/20 13:12 Patient is doing ok with c/o ongoing right flank pain. She has been on Ceftriaxone, but no culture was taken of her urine. CT scan shows right severe hydronephrosis without obstruction from a stone. Review of Systems Cardiovascular: Cardiovascular: Denies chest pain Respiratory: Respiratory: Reports no additional respiratory complaints Gastrointestinal: Gastrointestinal: Reports abdominal pain, Denies nausea and Denies vomiting Genitourinary: Genitourinary: Denies hematuria, Denies dysuria, Denies pelvic pain, Reports flank pain, Denies urinary hesitancy and Denies urinary urgency Exam Resp: Effort & Inspection: normal respiratory effort Cardio: Rate: regular rate GI: GI Palp: Yes Soft to palpation and No Tenderness to palpation present (GI) : General: Yes CVA tenderness on the right Extrem: General: no edema Objective Data Vital Signs Vital Signs: Vital Signs - 24 hr 10/16/20 17:26 10/16/20 17:30 10/16/20 20:41 Temperature 97.6 F Pulse Rate 84 146 H Respiratory Rate 18 Blood Pressure 95/58 L 72/58 L Pulse Oximetry 10/16/20 20:42 10/16/20 20:46 10/16/20 20:47 Temperature Pulse Rate 72 76 83 Respiratory Rate Blood Pressure 77/38 L 71/30 L 74/28 L Pulse Oximetry 10/16/20 21:01 10/16/20 21:06 10/17/20 06:15 Temperature 97.9 F Pulse Rate 81 Respiratory Rate Blood Pressure 93/48 L Pulse Oximetry 100 10/17/20 06:17 Temperature 98 F Pulse Rate 84 Respiratory Rate 16 Blood Pressure 99/57 L Pulse Oximetry Intake/Output Intake/Output: Intake & Output 10/14/20 10/15/20 10/16/20 10/17/20 23:59 23:59 23:59 23:59 Intake Total 4050 1550 Output Total 1325 400 Balance 2725 1150 Meds/Results Medications: Active Medications Generic Name Dose Route Start Last Admin Trade Name Freq PRN Reason Stop Dose Admin Enoxaparin Sodium 40 mg 10/16/20 17:30 10/16/20 17:25 Enoxaparin 40 Mg/0.4 Ml Syringe SUB-Q 40 mg DAILY SUMMER Administration Famotidine 20 mg 10/17/20 09:00 10/17/20 06:33 Famotidine 20 Mg/2 Ml Vial IV PUSH 20 mg Q12HR SUMMER Administration Miconazole Nitrate 1 appful 10/16/20 21:00 10/16/20 20:15 Miconazole Nitrate 2% Vaginal Cream 45 Gm Tube VAGINAL 1 appful HS SUMMER Administration Ondansetron HCl 4 mg 10/16/20 03:44 10/16/20 20:15 Ondansetron Inj 4 Mg/2 Ml Vial IV PUSH 4 mg Q3H PRN Administration Nausea And Vomiting Oxycodone/Acetaminophen 2 tablet 10/16/20 09:48 10/17/20 08:22 Oxycodone/Acetaminophen (*Crx) 5-325 Mg Tablet PO 2 tablet Q4H PRN Administration Pain Rated 7-10 Oxycodone/Acetaminophen 1 tablet 10/16/20 09:48 Oxycodone/Acetaminophen (*Crx) 5-325 Mg Tablet PO Q4H PRN Pain Rated 4-6 Tamsulosin HCl 0.4 mg 10/16/20 09:15 10/17/20 08:22 Tamsulosin Hcl 0.4 Mg Capsule PO 0.4 mg QAM SUMMER Administration Radiology Results: ITS Impressions Abdomen/Pelvis CT 10/16/20 09:11 IMPRESSION: Right moderately severe hydroureteronephrosis, likely secondary to preg
[2020-10-17 13:29] VITALS: PULSE 110; RESP 16; TEMP 36.6; O2SAT 98
[2020-10-17 13:30] VITALS: BP 115/72; PULSE 104
--- NOTE | 2020-10-17 13:40 | PC.NURSE ---
Patient taken via stretcher by EMS for transport to [facility]. VSS upon transport.
--- NOTE | 2020-10-24 12:13 | P.TS_ITS ---
Transfer Discharge Sum: Prov Provider Date of admission: 10/16/20 02:19 Primary care physician: Christina Kuo MD Admitting clinician: Kaye Jiménez MD Consults: 10/16/20 02:20 Consult to Physician Routine Comment: Consulting Provider: Raul Feng Reason for consultation: right side hydronephrosis Has provider been notified: Yes DS: Admitting Diagnosis Admitting Diagnosis Admitting Diagnosis: severe flank pain DS: Discharge Diagnosis Discharge Diagnosis (1) : Qualifiers: Weeks of gestation: unspecified Qualified Code(s): Z34.90 - Encounter for supervision of normal , unspecified, unspecified trimester Code(s): Z34.90 - Encounter for supervision of normal , unspecified, unspecified trimester Status: Acute (2) Hydronephrosis: Qualifiers: Hydronephrosis type: unspecified Qualified Code(s): N13.30 - Unspecified hydronephrosis Code(s): N13.30 - Unspecified hydronephrosis Status: Acute (3) Intractable pain: Code(s): R52 - Pain, unspecified Status: Acute (4) Acute flank pain: Code(s): R10.9 - Unspecified abdominal pain Status: Acute Transfer Discharge Sum: Med Medications Active and Home Medications: Home Medications albuterol sulfate [ProAir HFA] 1 puff INHALATION Q4H PRN 30 Days #18 gm 10/17/20 [Rx Confirmed 10/16/20] enoxaparin 40 mg SUBCUT DAILY 30 Days #0 ml 10/17/20 [Rx Confirmed 10/16/20] oxycodone-acetaminophen 2 tablet PO Q4H PRN 3 Days #30 tablet 10/17/20 [Rx] tamsulosin 0.4 mg PO QAM 30 Days #30 cap 10/17/20 [Rx] terconazole 1 applic VAGINAL DAILY 7 Days #0 g 10/17/20 [Rx Confirmed 10/16/20] Transfer Discharge Sum: Hosp Hospital Course Hospital course: Augusta Michaud is a 20 yo who presented to the ER @ approximately 18wks with severe right sided flank pain. Urine culture ruled out pyelonephritis. Imaging showed moderately severe right sided hydronephrosis; no stone visualized. Her Cr and urine output remained stable. Her vitals were stable. heart tones were noted, no contractions or bleeding were ntoed. She was started on flomax and pain medications. She continued to require high doses of pain meds. Urology was consulted and did not recommend stent placement. She normally received her care with MFM at [facility]. On 09/16/20 when her doctors office opened, she called her doctor who recommended she be transferred to [facility]; pt desired to be transferred-- it was arranged and she was sent via EMS to [facility]. Time Spent with Patient Time attestation: Total time spent providing and/or coordinating transfer services: Total time spent: Less than 30 minutes Exam Const: General: cooperative and uncomfortable Resp: Effort & Inspection: normal respiratory effort and able to speak in complete sentences Auscultation: clear to auscultation bilaterally Cardio: Rate: regular rate GI: Inspection: non-distended GI Palp: Yes Soft to palpation and No Tenderness to palpation present (GI) Back/Spine/Pelvis: Back: CVA tenderness (right sided) Skin: General skin exam: normal color Neuro: General: patient oriented x3 Extrem: General: normal to inspection Psych: Appearance: grossly normal Affect: normal affect Attitude: cooperative
== END 2020-10-17 13:40 | disposition short-term general hospital (02) ==
LOC: ANHED 10-16 02:24 → ANHOBPP 10-16 02:53
PROVIDERS: Admitting Provider Obstetrics & Gynecology; Emergency Provider Emergency Medicine; PCP Family Medicine; Visit Provider Obstetrics & Gynecology
DX: O26.832 Pregnancy related renal disease, second trimester (principal); N13.30 Unspecified hydronephrosis; Z3A.17 17 weeks gestation of pregnancy
CPT/HCPCS: 36415; 74176; 80048; 80053; 81001; 83690; 85025; 85027; 93005; 96361; 96365; 96372; 96374; 96375; 96376; 99285; A9270; G0378; J0696; J1650; J2270; J2405; J3010; J7030; J7120

== ENCOUNTER 2020-12-14 22:49 | Emergency (ER) | payer OTHER, SELFPAY ==
[2020-12-14 22:58] VITALS: BP 113/73; PULSE 137; RESP 22; TEMP 36.2; O2SAT 96
[2020-12-14 23:24] LABS: Basophils Percent Auto 0.2 % (0.2-1.2); Eosinophils Percent Auto 0.4 % (0-4.4); Hematocrit 34.7 % (37.0-47.0); Hemoglobin 11.7 g/dL (12.0-15.0); Immature Granulocyte Absolute 0.09 K/mm3 (0.00-0.031); Immature Granulocyte Percent A 0.9 % (0-0.5); Lymphocytes Absolute Auto 0.55 K/mm3 (0.9-3.2); Lymphocytes Percent Auto 5.8 % (18.3-44.2); Mean Corpuscular HGB Conc 33.7 g/dl (32-36); Mean Corpuscular Hemoglobin 29.4 pg (26-34); Mean Corpuscular Volume 87.2 fl (80-100); Monocytes Absolute Auto 0.4 K/mm3 (0.1-0.6); Monocytes Percent Auto 3.7 % (2.6-8.5); Neutrophils Absolute Auto 8.5 K/mm3 (1.3-6.7); Platelet Count Result 407 k/mm3 (150-375); Red Blood Count 3.98 M/mm3 (4.2-5.4); Red Cell Distribution Width 13.4 % (11.5-14.5); White Blood Count 9.5 K/mm3 (4.5-10.0)
[2020-12-14 23:31] LABS: Add Urine Microscopic? YES; Appearance Urine Cloudy (Clear); Bacteria Urine Trace /hpf; Bilirubin Urine Negative (Negative); Blood Urine Negative (Negative); Color Urine Amber (Yellow); Glucose Urine UA Negative (Negative); Ketones Urine 2+ mg/dL (Negative); Leukocyte Esterase Ur Negative LEU/UL (Negative); Mucus Urine Heavy /lpf; Nitrate Urine Negative (Negative); Protein Urine 2+ mg/dL (Negative); RBC Urine 0-2 /hpf (0-2); Specific Grav Ur 1.029 (1.001-1.035); Squamous Epithelial Cell Urine Many /hpf (Few); WBC Urine 0-3 /hpf
--- NOTE | 2020-12-14 23:34 | ED.NAVMDI ---
HPI - Nausea/Vomiting/Diarrhea General Chief complaint: Nausea/Vomiting/Diarrhea Stated complaint: Vomiting/Diarrhea/26 wks Time Seen by Provider: 12/14/20 23:22 Source: patient Mode of arrival: ambulatory Limitations: no limitations History of Present Illness HPI Narrative: Patient is a 20-year-old female who presents with complaints of nausea, vomiting and diarrhea starting this a.m. Patient reports she is 26 weeks . Patient reports history of pancreatitis and states this is how she felt last time this happened she was . She reports mild abdominal cramping. She denies vaginal discharge. She denies chest pain or shortness of breath. MD elicited complaint: nausea, vomiting and diarrhea Related Data Home Medications Medication Instructions Recorded Confirmed ferrous sulfate 325 mg PO DAILY 12/14/20 [id number] pkg PO 12/14/20 [Chewable ] Allergies Allergy/AdvReac Type Severity Reaction Status Date / Time ketorolac Allergy Severe Anaphylactic Verified 12/14/20 23:00 Shock diphenhydramine Allergy Other Verified 12/14/20 23:00 [From Benjessical] Review of Systems Review of Systems: Narrative: CONSTITUTIONAL: Denies fever, chills, or sweats. EYES: Denies visual changes, redness, or discharge. ENT: Denies rhinorrhea, congestion, sore throat, or otalgia. CARDIOVASCULAR: Denies chest pain, palpitations, or edema. RESPIRATORY: Denies cough or dyspnea. GASTROINTESTINAL: Reports abdominal cramping, nausea, vomiting, and diarrhea. GENITOURINARY: Denies dysuria or hematuria. SKIN: Denies rash or itching. MUSCULOSKELETAL: Denies back pain, joint pain, or myalgia. NEUROLOGIC: Denies headache, numbness, dizziness, or weakness. PSYCHIATRIC: Denies anxiety or depression. [facility] Past Medical History Medical History (Updated 12/15/20 @ 01:55 by SHEYLA Dasilva) Anxiety Migraine Pancreatitis Surgical History Surgical History History of cholecystectomy History of tonsillectomy Family History Family History Father Diabetes mellitus Patient's father is in good health Grandparent Diabetes mellitus Hypertension Mother Patient's mother is in good health Sibling Patient's sister is in good health Social History Social History Smoking status: Never smoker Second hand tobacco smoke exposure: No Alcohol intake: never Gender identity (if verbalized by the patient): Female Sexual Orientation (if Verbalized by the Patient): Straight or Heterosexual Comments At the time of signature, I have reviewed and agree with nursing past medical, surgical, social, and family history unless otherwise noted. Please see nursing chart for further information. There is no relevant family history pertinent to the presenting complaint. Exam Narrative: Exam Narrative: GENERAL: Well-appearing, well-nourished, and in no acute distress. HEAD: Normocephalic, atraumatic. EYES: EOMI. No redness or drainage. Conjunctiva are normal. ENT: Mucous membranes pink and moist. CHEST: No respiratory distress. Clear to auscultation. HEART: Regular rate and rhythm. No murmur appreciated. Normal peripheral pulses. GI: Soft, nontender without rebound, or guarding. Bowel sounds normal in all quadrants. MUSCULOSKELETAL: No bony tenderness. EXTREMITIES: Normal range of motion. No edema. SKIN: Warm, dry, no rash. NEURO: No focal deficits. Alert and oriented x3. Gait steady. PSYCH: Normal affect. No signs of depression or anxiety. Course Vital Signs Vital signs: Vital Signs Temperature 36.2 C L 12/14/20 22:58 Pulse Rate 137 H 12/14/20 22:58 Respiratory Rate 22 H 12/14/20 22:58 Blood Pressure 113/73 12/14/20 22:58 Pulse Oximetry 96 12/14/20 22:58 Temperature 36.9 C 12/15/20 00:45 Pu
[2020-12-14 23:36] LABS: Alanine Aminotransferase 7 U/L (4-35); Albumin Level 3.7 g/dL (3.5-5.1); Alkaline Phosphatase 105 U/L (38-126); Anion Gap 8 mmol/L (8-16); Aspartate Amino Transferase 18 U/L (14-36); Bilirubin,Total 0.8 mg/dL (0.2-1.3); Blood Urea Nitrogen 6 mg/dL (7-17); Calcium 8.9 mg/dL (8.4-10.2); Carbon Dioxide 22 mmol/L (22-30); Chloride 103 mmol/L (98-107); Estimated CRCL calculation 191 ml/min; Estimated Glomerular Filt Rate > 60; Glucose 92 mg/dL (65-105); Lipase 63 U/L (23-300); Potassium 3.7 mmol/L (3.4-5.0); Sodium 133 mmol/L (137-145)
--- NOTE | 2020-12-14 23:46 | PC.NURSE ---
Pt presents to ED with complaints of abdominal pain. Pt states she has hx of pancreatitis and feels this may be another flare up . Pt states current symptoms are same as her last flare up. Pt noted to be 26 weeks . Pt states she has been experiencing nvd and fever. Pt currently afebrile. Pt resting on cart with stable vitals and no complaints or concerns at this time. Call button and personal items within reach. Advised to press call button for assistance.
[2020-12-14] MEDS: SODIUM CHLORIDE 0.9% IV 1,000 ML 999 ML IV CONT ×2 (23:50)
[2020-12-14 23:52] VITALS: BP 106/65; BP 120/72; PULSE 125; PULSE 133
[2020-12-14 23:55] VITALS: BP 118/78; PULSE 139
[2020-12-14] MEDS: ONDANSETRON INJ 4 MG/2 ML VIAL IV PUSH (23:56)
--- NOTE | 2020-12-15 00:44 | PC.NURSE ---
Pharmacy called for IV tylenol as med is not available in pyxis.
[2020-12-15 00:45] VITALS: BP 120/71; PULSE 108; RESP 16; TEMP 36.9; O2SAT 98
--- NOTE | 2020-12-15 01:18 | PC.NURSE ---
Pt states pain has not subsided and is resting on cart in its lowest position. EDMD advised and no new order given at this time. Pt alert and resting on cart in its lowest position. Call button and personal items within reach. Spouse at bedside with son. Advised to press call button for assistance.
[2020-12-15] MEDS: SODIUM CHLORIDE 0.9% IV 1,000 ML 999 ML IV CONT (01:31)
--- NOTE | 2020-12-15 01:54 | PC.NURSE ---
EDNP at bedside and gives verbal order for one liter bolus of 0.9 normal saline. Pt resting on cart with family at bedside. Call button and personal items within reach. Advised to press call button for assistance.
--- NOTE | 2020-12-15 02:08 | PC.NURSE ---
Labor and delivery nurse at bedside to assess heart tones. Pt resting and tolerating well.
--- NOTE | 2020-12-15 02:40 | PC.NURSE ---
Pt able to ambulate to restroom without difficulty. Vitals stable and pt in no obvious distress. Pt requesting work note for herself and significant other.
[2020-12-15 02:41] VITALS: BP 120/73; PULSE 109; RESP 16; TEMP 36.9; O2SAT 100
== END 2020-12-15 02:43 | disposition home or self-care (01) ==
PROVIDERS: Emergency Medicine; Emergency Provider Nurse Practitioner; PCP Family Medicine
DX: O21.9 Vomiting of pregnancy, unspecified (principal); R19.7 Diarrhea, unspecified; Z3A.26 26 weeks gestation of pregnancy
CPT/HCPCS: 36415; 80053; 81001; 81025; 83690; 85025; 96361; 96374; 96375; 99284; J0131; J2405; J7030

== ENCOUNTER 2021-02-27 10:14 | Observation (INO) | payer OTHER, SELFPAY ==
[2021-02-27 10:34] VITALS: BP 119/71; PULSE 110; TEMP 36.8
[2021-02-27 10:45] VITALS: BP 113/69; PULSE 103
--- NOTE | 2021-02-27 10:52 | PC.NURSE ---
Pt. is a walk-in with Hx of vaginal delivery X1, with pancreatitis and a PE after delivery of that baby. She states she is now seen at high risk MD for this for factor 5 leiden and is currently taking heparin q12 hrs. She reports h/a since Saturday at approx. 1330 and Tylenol does not help. She also reports vaginal spotting and mild irregular contractions. No contractions noted per EFM and no spotting noted upon external visual exam. Pt. currently reports h/a of 7/10, DTR's 2+, no clonus, pt. denies epigastric pain and visual disturbances at this time.
[2021-02-27 11:00] VITALS: BP 100/55; PULSE 105
--- NOTE | 2021-02-27 11:01 | PC.NURSE ---
1100--Phone call to Dr. Doan, report given, orders to give Tylenol 1g po and have pt. f/u with her physician.
[2021-02-27 11:03] VITALS: BMI 29.5
--- NOTE | 2021-02-27 11:03 | OBADM ---
This patient, Augusta Michaud, admitted to the OB room OB Post [facility] for observation. Patient/family oriented to hospital policies and general routines including ID bracelet, bed and alarms, visiting hours, pain management, procedures, bathroom and other care routines, personal items, smoking policy, room service/diet, and visiting hours. Patient/Family are encouraged to report perceived risks to care and to ask questions if they do not understand what they are told or what they should do.
--- NOTE | 2021-02-27 11:12 | PC.NURSE ---
1112--Pt. declines Tylenol at this time and just wants to go home.
--- NOTE | 2021-03-01 16:18 | PM.OBTRLD ---
OB - Triage/Final Diagnosis Visit Information Comments/Additional reasons for admission: I have assessed the risk for this patient, Augusta Michaud, and determined that she would benefit from observation care. Final Diagnosis (1) Headache in : Code(s): O26.899 - Other specified related conditions, unspecified trimester; R51.9 - Headache, unspecified Status: Acute
== END 2021-02-27 11:30 | disposition home or self-care (01) ==
PROVIDERS: Admitting Provider Student in an Organized Health Care Education/Training Program; PCP Family Medicine; Visit Provider Student in an Organized Health Care Education/Training Program
DX: O26.893 Other specified pregnancy related conditions, third trimester (principal); R51.9 Headache, unspecified; Z3A.37 37 weeks gestation of pregnancy
CPT/HCPCS: G0378; G0379

== ENCOUNTER 2021-05-11 10:36 | Emergency (ER) | payer OTHER, SELFPAY ==
[2021-05-11 10:45] VITALS: BP 106/67; PULSE 96; RESP 16; TEMP 36.3; O2SAT 100
--- NOTE | 2021-05-11 11:08 | ED.EYEPROB ---
HPI - Eye Problem General Chief complaint: Eye Problems Stated complaint: Eye Pain Source: patient and RN notes reviewed Limitations: no limitations History of Present Illness HPI Narrative: The patient, prior history of factor V Leiden deficiency and does not wear contact lenses/glasses, presents with left eyelid discomfort patient. Patient states she has a shorter 1 day history of left upper lid discomfort that is slightly red and puffy. No photophobia, pinkeye, injury but there was some morning discharge. Symptoms are mild, worse with blinking Related Data Allergies Allergy/AdvReac Type Severity Reaction Status Date / Time ketorolac Allergy Severe Anaphylactic Verified 05/11/21 10:52 Shock diphenhydramine Allergy Other Verified 05/11/21 10:52 [From Benadryl] Review of Systems Review of Systems: General/Constitutional: No weight loss,fever Eyes: N0: Redness, REPORTS discharge Ears/Nose/Throat: No: Epistaxis,ear discharge Respiratory: Denies: Hemoptysis Gastrointestinal: No Vomiting, Bleeding-rectal Skin: No Lumps, eruption Neurologic: No Focal Weakness,Sz Hematologic: Denies: Petechiae/Purpura Psychiatric: No: Suicida ideationl All Other Systems: Reviewed and Negative PMFSH Past Medical History Medical History (Updated 05/11/21 @ 11:[address] MD) Anxiety Migraine Pancreatitis Surgical History Surgical History History of cholecystectomy History of tonsillectomy Family History Family History Father Diabetes mellitus Patient's father is in good health Grandparent Diabetes mellitus Hypertension Mother Patient's mother is in good health Sibling Patient's sister is in good health Social History Social History (Updated 04/05/21 @ 09:42 by Maritza Llanos) Second hand tobacco smoke exposure: No Alcohol intake: never Substance use: never Substance use type: does not use Gender identity (if verbalized by the patient): Female Sexual Orientation (if Verbalized by the Patient): Straight or Heterosexual Comments At time of signature, agree with nursing past medical, surgical, social and family history. There is no relevant family history pertinent to the presenting complaint Exam Narrative: General Appearance: Well appearing, Well nourished, No distress EYE: PERRLA,[id number] : Remarkable for early internal hordeolum, EOMI,Lens normal, Normal corneas , Anterior chamber deep), min conjunctiva injection Ears: External ear normal, Auditory canal normal Nose: Normal nose, Nares clear Mouth/Throat: Normal appearing, Normal lips, Supple, Respiratory: Airway patent, No respiratory distress Skin: Warm, Dry Neurological: A&O x3,, Normal affect Course Vital Signs Vital signs: Vital Signs Temperature 97.3 F L 05/11/21 10:45 Pulse Rate 96 05/11/21 10:45 Respiratory Rate 16 05/11/21 10:45 Blood Pressure 106/67 05/11/21 10:45 Pulse Oximetry 100 05/11/21 10:45 Temperature 97.3 F L 05/11/21 10:45 Pulse Rate 96 05/11/21 10:45 Respiratory Rate 16 05/11/21 10:45 Blood Pressure 106/67 05/11/21 10:45 Pulse Oximetry 100 05/11/21 10:45 Discharge Plan Discharge Clinical Impression: Hordeolum of left eye Qualifiers: Hordeolum type: unspecified type Eyelid: upper Qualified Code(s): H00.014 - Hordeolum externum left upper eyelid Patient Disposition: Home, Self-Care Condition: Stable Instructions: Perfecto (ED) Additional Instructions: See eye doctor if not improved, also try lid soaks Prescriptions: New sulfacetamide sodium [Bleph-10] 10 % drops 2 drp LEFT EYE Q4H Qty: 5 RF: 0 Follow-up/Referrals: Christina Kuo MD [Primary Care Provider] -
== END 2021-05-11 11:15 | disposition home or self-care (01) ==
PROVIDERS: Emergency Provider Emergency Medicine; PCP Family Medicine
DX: H00.014 Hordeolum externum left upper eyelid (principal)
CPT/HCPCS: 99213; G0463

== ENCOUNTER 2021-05-11 22:56 | Emergency (ER) | payer OTHER, SELFPAY ==
[2021-05-11 23:00] VITALS: BP 121/77; PULSE 70; RESP 17; TEMP 36.4; O2SAT 99
--- NOTE | 2021-05-11 23:21 | ED.GENADULT ---
HPI - General Adult General Chief complaint: Eye Problems Stated complaint: eyes inflammed Time Seen by Provider: 05/11/21 23:03 History of Present Illness HPI narrative: Patient 21-year-old female presents the emergency department with chief complaint of eye irritation. Patient reports she was seen at urgent care earlier today and treated with topical antibiotics for her eyes. The patient was told that she had some conjunctivitis and may have had a stye as well. The patient states that she noticed that she started having worsening redness of her eyelid on the right side and also the left side patient states had some purulent discharge out of her eyes as well. Related Data Allergies Allergy/AdvReac Type Severity Reaction Status Date / Time ketorolac Allergy Severe Anaphylactic Verified 05/11/21 23:02 Shock diphenhydramine Allergy Other Verified 05/11/21 23:02 [From Benadryl] Review of Systems Review of Systems: A 10 system review of systems was completed on the patient and is negative except for what is stated in the HPI. Nursing and ancillary documentation was reviewed. PMFSH Past Medical History Medical History Anxiety Migraine Pancreatitis Surgical History Surgical History History of cholecystectomy History of tonsillectomy Family History Family History Father Diabetes mellitus Patient's father is in good health Grandparent Diabetes mellitus Hypertension Mother Patient's mother is in good health Sibling Patient's sister is in good health Social History Social History Second hand tobacco smoke exposure: No Alcohol intake: never Substance use: never Substance use type: does not use Gender identity (if verbalized by the patient): Female Sexual Orientation (if Verbalized by the Patient): Straight or Heterosexual Exam Narrative: GENERAL: Well-appearing, well-nourished, and in no acute distress. HEAD: Normocephalic, atraumatic. EYES: PERRLA and EOMI. there is conjunctivitis present bilaterally the eyelids have mild erythema consistent with blepharitis ENT: Nares clear, no rhinorrhea or epistaxis. Mucous membranes moist. NECK: Supple. CHEST: Clear to auscultation. No respiratory distress. HEART: Regular rate and rhythm. No murmur heard. Normal peripheral pulses. ABDOMEN: Soft, nontender, nondistended, normal active bowel sounds. EXTREMITIES: Normal range of motion. No edema. SKIN: Warm, dry, no rash. NEURO: No focal deficits. Alert and oriented x3. PSYCH: Normal mood and affect. Course Vital Signs Vital signs: Vital Signs Temperature 36.4 C L 05/11/21 23:00 Pulse Rate 70 05/11/21 23:00 Respiratory Rate 17 05/11/21 23:00 Blood Pressure 121/77 05/11/21 23:00 Pulse Oximetry 99 05/11/21 23:00 Temperature 36.4 C L 05/11/21 23:00 Pulse Rate 70 05/11/21 23:00 Respiratory Rate 17 05/11/21 23:00 Blood Pressure 121/77 05/11/21 23:00 Pulse Oximetry 99 05/11/21 23:00 Medical Decision Making Vital Signs Vital Signs: Vital Signs Temperature 36.4 C L 05/11/21 23:00 Pulse Rate 70 05/11/21 23:00 Respiratory Rate 17 05/11/21 23:00 Blood Pressure 121/77 05/11/21 23:00 Pulse Oximetry 99 05/11/21 23:00 Temperature 36.4 C L 05/11/21 23:00 Pulse Rate 70 05/11/21 23:00 Respiratory Rate 17 05/11/21 23:00 Blood Pressure 121/77 05/11/21 23:00 Pulse Oximetry 99 05/11/21 23:00 Discharge Plan Discharge Clinical Impression: Blepharitis of both eyes Qualifiers: Blepharitis type: unspecified type Eyelid: both upper and lower Qualified Code(s): H01.00A - Unspecified blepharitis right eye, upper and lower eyelids Patient Disposition: Home, Self-Care Condition: Stabl
[2021-05-11] MEDS: CLINDAMYCIN HCL 150 MG CAP 300 MG PO (23:39)
== END 2021-05-12 00:33 | disposition home or self-care (01) ==
LOC: ANHED 23:34
PROVIDERS: Emergency Provider Emergency Medicine; PCP Family Medicine
DX: H01.00A Unspecified blepharitis right eye, upper and lower eyelids (principal); H10.9 Unspecified conjunctivitis
CPT/HCPCS: 99283; A9270

== ENCOUNTER 2021-07-28 11:53 | Emergency (ER) | payer OTHER, SELFPAY ==
[2021-07-28 12:12] VITALS: BP 129/84; PULSE 120; RESP 18; TEMP 36.4; O2SAT 97
--- NOTE | 2021-07-28 13:07 | ED.HA ---
HPI - Headache General Chief Complaint: Headache Stated Complaint: migraine Time Seen by Provider: 07/28/21 13:02 Source: RN notes reviewed History of Present Illness HPI Narrative: Patient presents emergency department from home for migraine headache. Patient has had a migraine for the past 3 days pain is generalized throughout the head and feels consistent with her prior migraines she denies any fevers or chills vision changes chest pain shortness of breath abdominal pain nausea vomiting or any other symptoms. States that she had been given Fioricet for her migraines which have been helping but she ran out of her Fioricet's several weeks ago states she last took Tylenol for the pain yesterday Related Data Allergies Allergy/AdvReac Type Severity Reaction Status Date / Time ketorolac Allergy Severe Anaphylactic Verified 07/28/21 12:14 Shock diphenhydramine Allergy Other Verified 07/28/21 12:14 [From Benadryl] Review of Systems Review of Systems: Gen.: Denies fevers or chills Eyes: Denies eye pain or visual change ENT: Denies congestion Respiratory: Denies shortness of breath or cough CV: Denies chest pain or palpitations GI: Denies abdominal pain nausea, emesis or diarrhea denies any chance of Musculoskeletal: Denies back pain or muscle pain Neuro: See HPI Skin: Denies rash Except as documented, all other systems reviewed and negative PMFSH Past Medical History Medical History Anxiety Migraine Pancreatitis Surgical History Surgical History History of cholecystectomy History of tonsillectomy Family History Family History Father Diabetes mellitus Patient's father is in good health Grandparent Diabetes mellitus Hypertension Mother Patient's mother is in good health Sibling Patient's sister is in good health Social History Social History Second hand tobacco smoke exposure: No Alcohol intake: never Substance use: never Substance use type: does not use Gender identity (if verbalized by the patient): Female Sexual Orientation (if Verbalized by the Patient): Straight or Heterosexual Exam Narrative: APPEARANCE: No acute distress, nontoxic, resting in bed EYES: EOMI, PERRL HEENT: Normocephalic, atraumatic, TMs clear bilaterally nares patent Neck: Supple full range of motion without pain no managements RESPIRATORY: No respiratory distress Clear to auscultation bilaterally with no rhonchi wheezing or rales. CARDIOVASCULAR: Regular rate and rhythm without murmurs rubs or gallops. ABDOMINAL: Soft, nontender, nondistended, no rebound or guarding MUSCULOSKELETAl: Moves all extremities. No clubbing, cyanosis or edema. NEURO: Awake and alert x 4. Following commands, speech normal, no focal deficits SKIN:: Warm, dry. No rashes lesions or abrasions PSYCHIATRIC: Normal affect/mood, Course Course Emergency Course: Discussed with patient treatment options. This time the patient wishes to have a Fioricet she will go back home as this normally helps with her migraine and I will fill short prescription Discussed with patient results of workup and diagnosis. Discussed need for follow-up with primary care, proper use of medication, and reasons to return to the emergency department. Patient understands and agrees to current treatment plan Vital Signs Vital signs: Vital Signs Temperature 97.5 F L 07/28/21 12:12 Pulse Rate 120 H 07/28/21 12:12 Respiratory Rate 18 07/28/21 12:12 Blood Pressure 129/84 07/28/21 12:12 Pulse Oximetry 97 07/28/21 12:12 Temperature 97.5 F L 07/28/21 12:12 Pulse Rate 120 H 07/28/21 12:12 Respiratory Rate 18 07/28/21 12:12 Blood Pressure 129/84 07/28/21 12:12 Pulse Oximetry 97 07/28/21 12:12 [facility] -
== END 2021-07-28 14:46 | disposition home or self-care (01) ==
PROVIDERS: Emergency Provider Emergency Medicine
DX: G43.909 Migraine, unspecified, not intractable, without status migrainosus (principal)
CPT/HCPCS: 99283; A9270

== ENCOUNTER 2021-08-12 13:13 | Emergency (ER) | payer OTHER, SELFPAY ==
[2021-08-12 13:25] VITALS: BP 131/84; PULSE 107; RESP 16; TEMP 37.3; O2SAT 99
--- NOTE | 2021-08-12 13:45 | ED.NAVMDI ---
HPI - Nausea/Vomiting/Diarrhea General Chief complaint: Nausea/Vomiting/Diarrhea Stated complaint: Nausea Time Seen by Provider: 08/12/21 13:30 Source: patient, RN notes reviewed and old records reviewed History of Present Illness MD elicited complaint: vomiting Related Data Allergies Allergy/AdvReac Type Severity Reaction Status Date / Time ketorolac Allergy Severe Anaphylactic Verified 08/12/21 13:31 Shock diphenhydramine Allergy Other Verified 08/12/21 13:31 [From Benadryl] Review of Systems Review of Systems: All systems reviewed & are unremarkable except as noted in HPI and below Constitutional: Constitutional: Reports no additional constitutional complaints, Denies chills and Denies fever(s) Eyes: Eyes: Reports no additional eye complaints ENT: Reports system reviewed and no additional complaints, except as documented, Denies vertigo, Denies dizziness, Denies nasal congestion and Denies sore throat Cardiovascular: Cardiovascular: Reports no additional cardiovascular complaints, Denies chest pain, Denies rapid heart rate, Denies radiating jaw, neck or arm pain and Denies slow heart rate Respiratory: Respiratory: Reports no additional respiratory complaints, Denies cough, Denies dyspnea and Denies wheezing Gastrointestinal: Gastrointestinal: Reports no additional gastrointestinal complaints, Denies abdominal pain, Denies bloating, Denies constipation, Denies heartburn, Denies diarrhea, Reports nausea and Reports vomiting Genitourinary: Genitourinary: Reports no additional female genitourinary complaints Musculoskeletal: Musculoskeletal: Reports no additional musculoskeletal complaints Integumentary/Breasts: Skin/Breast: Reports system reviewed and no additional complaints, except as docu Neurologic: Reports system reviewed and no additional complaints, except as documented Psychiatric: Psychiatric: Reports no additional psychiatric complaints Allergic/Immunologic: Allergic/Immunologic: Reports no additional allergic/immunologic complaints [facility] Past Medical History Medical History Anxiety Migraine Pancreatitis Surgical History Surgical History History of cholecystectomy History of tonsillectomy Family History Family History Father Diabetes mellitus Patient's father is in good health Grandparent Diabetes mellitus Hypertension Mother Patient's mother is in good health Sibling Patient's sister is in good health Social History Social History Second hand tobacco smoke exposure: No Alcohol intake: never Substance use: never Substance use type: does not use Gender identity (if verbalized by the patient): Female Sexual Orientation (if Verbalized by the Patient): Straight or Heterosexual Comments At the time of my signature, I reviewed and agree with the nursing past medical, surgical, social, and family history. There is no relevant family history pertinent to the patient complaint. Exam Const: General: healthy appearing, no acute distress and alert Nutritional Appearance: well nourished Orientation/consciousness: patient oriented x3 Limitations: no limitations HENMT: Head: normal to inspection Ears: external ears normal, TM's normal bilaterally and EAC's normal General nose exam: Normal external nose present Mouth: Yes Normal oral and palatal mucosa present Throat: posterior oropharynx normal Eyes: Conjunctivae: conjunctivae normal Cornea: corneas normal Pupils: Equal, round and reactive pupils present Direct Ophthalmoscopy: no photophobia Neck: Neck: normal visual inspection, no lymphadenopathy and no meningeal signs Chest: Chest palpation & inspection: normal inspection of the chest Resp: Effort & Inspection: normal respiratory effort and no use of accessory muscles
== END 2021-08-12 13:53 | disposition left against medical advice (07) ==
PROVIDERS: Emergency Provider Nurse Practitioner; PCP Physician Assistant
DX: K92.0 Hematemesis (principal)
CPT/HCPCS: 99213; G0463

== ENCOUNTER 2022-01-24 10:07 | Emergency (ER) | payer OTHER, SELFPAY ==
[2022-01-24 10:29] VITALS: BP 110/64; PULSE 104; RESP 18; TEMP 36.1; O2SAT 99
--- NOTE | 2022-01-24 11:07 | ED.WOUNDLAC ---
HPI - Wound/Laceration General Chief Complaint: Wound/Laceration Stated Complaint: non healing wound Time Seen by Provider: 01/24/22 11:08 Source: patient Mode of arrival: ambulatory Limitations: no limitations History of Present Illness HPI narrative: 21 yo F presents with open lesion to lower ABD for approx. 1 wk. states she has tried to pop it but nothing drains. just not getting better. yesterday noticed several similar lesions to legs, arms, neck, face. pt is 22 wks. . no known hx MRSA. All systems reviewed and negative except as noted above. Related Data Home Medications Medication Instructions Recorded Confirmed enoxaparin 40 mg/0.4 mL 1 syr DAILY 01/24/22 01/24/22 subcutaneous syringe Allergies Allergy/AdvReac Type Severity Reaction Status Date / Time diphenhydramine Allergy Severe Anaphylactic Verified 01/24/22 10:57 [From Benadryl] Shock ketorolac Allergy Severe Anaphylactic Verified 01/24/22 10:23 Shock Review of Systems Review of Systems: CONSTITUTIONAL: Denies fever, chills, or sweats. EYES: Denies visual changes, redness, or discharge. ENT: Denies rhinorrhea, congestion, sore throat, or otalgia. CARDIOVASCULAR: Denies chest pain, palpitations, or edema. RESPIRATORY: Denies cough or dyspnea. GASTROINTESTINAL: Denies abdominal pain, nausea, vomiting, or diarrhea. GENITOURINARY: Denies dysuria or hematuria. SKIN: Denies rash or itching. Reports open lesions. MUSCULOSKELETAL: Denies back pain, joint pain, or myalgia. NEUROLOGIC: Denies headache, numbness, or weakness. PSYCHIATRIC: Denies anxiety or depression. All other systems reviewed are negative, except as documented in HPI. [facility] Past Medical History Medical History Anxiety Migraine Pancreatitis Surgical History Surgical History History of cholecystectomy History of tonsillectomy Family History Family History Father Diabetes mellitus Patient's father is in good health Grandparent Diabetes mellitus Hypertension Mother Patient's mother is in good health Sibling Patient's sister is in good health Social History Social History Second hand tobacco smoke exposure: No Alcohol intake: never Substance use: never Substance use type: does not use Gender identity (if verbalized by the patient): Female Sexual Orientation (if Verbalized by the Patient): Straight or Heterosexual Comments At time of signature, agree with nursing past medical, surgical, social and family history. There is no relevant family history pertinent to the presenting complaint. Exam Narrative: GENERAL: This is a well-nourished, well-developed patient, in no apparent distress. HEAD: normocephalic, atraumatic. EYES: PERRL. Sclera clear/white. Vision is grossly intact. EARS: External ears normal NOSE: External nose normal NECK: Neck supple, non-tender without lymphadenopathy, masses or thyromegaly. CARDIOVASCULAR: Regular rate and rhythm without murmurs, gallops, or rubs. RESPIRATORY: Clear to auscultation. Breath sounds equal bilaterally. No wheezes, rales, or rhonchi. SKIN: warm, Dry, intact , good texture and turgor. Several scabbed, erythematous oval-shaped lesions. Lesion to abdomen is yellowish at the center. No drainage. NEURO: awake, alert, and oriented to person, place and time. There were no obvious focal neurologic abnormalities. EXTREMITIES: Normal range of motion to all extremities. Course Course Level of Care: Express Care Visit Vital Signs Vital signs: Vital Signs Temperature 36.1 C L 01/24/22 10:29 Pulse Rate 104 H 01/24/22 10:29 Respiratory Rate 18 01/24/22 10:29 Blood Pressure 110/64 01/24/22 10:29 Pulse Oximetry 99 01/24/22 10:29 Oxygen Delivery Room Air
== END 2022-01-24 11:18 | disposition home or self-care (01) ==
PROVIDERS: Emergency Provider Nurse Practitioner Family
DX: O99.712 Diseases of the skin and subcutaneous tissue complicating pregnancy, second trimester (principal); Z3A.22 22 weeks gestation of pregnancy; L08.89 Other specified local infections of the skin and subcutaneous tissue; B95.8 Unspecified staphylococcus as the cause of diseases classified elsewhere
CPT/HCPCS: 99213; G0463

== ENCOUNTER 2022-01-26 11:43 | Emergency (ER) | payer OTHER, SELFPAY ==
[2022-01-26] VITALS (46 sets, daily range): BP systolic 91–114; BP diastolic 48–75; PULSE 86–140; RESP 12–22; TEMP 36.8; O2SAT 96–100
--- NOTE | ~2022-01-26 | US_ITS ---
US OB limited 01/26/2022 13:59 Indication: Syncope. Status post fall. Abdomen trauma. Patient on Lovenox. Procedure: High-resolution Limited obstetrical ultrasound Comparison: No prior studies for comparison. Findings: There is a single living intrauterine in breech presentation. Placenta is anterio r without previa. Amniotic fluid volume is normal. heart rate is 140 BPM. The placenta is gross ly normal, without suggestion of placenta abruption. However, ultrasound is not diagnostic of abrupt ion since acute hemorrhage can be isoechoic to be placenta. Recommend clinical correlation. Impression: 1: Single living intrauterine in breech presentation. Reviewed, dictated and finalized at location A. Impression: 1: Single living intrauterine in breech presentation.
--- NOTE | ~2022-01-26 | CT_ITS ---
EXAMINATION: CT brain wo con DATE: 01/26/2022 13:06 INDICATION: Syncope. Head injury. TECHNIQUE: Computed tomography (CT) of the head was performed without intravenous contrast. The mA wa s adjusted according to patient size. Iterative reconstruction technique was employed. The dose-lengt h product was 605.33 mGy-cm. COMPARISON: Head CT 09/14/2018 FINDINGS: There is no intracranial hemorrhage, acute infarction, or abnormal intracranial mass lesion . The ventricles are normal in size. There is mild mucosal thickening in the ethmoid sinuses. The orb its are normal. There are bilateral mastoid effusions. IMPRESSION: 1. Normal brain. 2. Bilateral mastoid effusions. Reviewed, dictated and finalized at location A.
--- NOTE | ~2022-01-26 | CT_ITS ---
EXAMINATION: CT cervical spine wo con DATE: 01/26/2022 13:06 INDICATION: Head injury. TECHNIQUE: Computed tomography (CT) of the cervical spine was performed without intravenous contrast. Automated exposure control and iterative reconstruction technique were employed. The dose-length pro duct was 349.03 mGy-cm. COMPARISON: None FINDINGS: There is 10 degrees dextroscoliosis of cervical spine. There is kyphosis of cervical spine. Vertebral body heights are normal. Intervertebral disc heights are normal. At C7-T1, there is mild b ilateral facet joint osteoarthritis. No neural foraminal stenosis or central canal stenosis. IMPRESSION: 1. No fracture. Reviewed, dictated and finalized at location A. IMPRESSION: 1. No fracture.
--- NOTE | 2022-01-26 11:59 | ECG_ITS ---
Measurements Intervals [place] Rate: 83 P: -1 OR: 146 QRS: 46 QRSD: 90 T: 30 QT: 366 QTc: 432 Interpretive Statements SINUS RHYTHM INCOMPLETE RIGHT BUNDLE BRANCH BLOCK BASELINE ARTIFACT- III, AVL, AVF BORDERLINE ECG Electronically Signed On 01-26-2022 17:14:44 CDT by Georges Browning D.O.
--- NOTE | 2022-01-26 12:15 | ED.GENADULT ---
HPI - General Adult General Chief complaint: Syncope Stated complaint: fall Time Seen by Provider: 01/26/22 11:54 Source: patient Mode of arrival: EMS Limitations: no limitations History of Present Illness HPI narrative: Patient is a 21-year-old female who presents to the ED via EMS with report of syncope. Patient reports she was standing at a gas station today getting gas when she began to feel dizzy and lightheaded. She states that she turned to sit in her car she felt like she was about to pass out and then reported waking up on the ground. She states bystanders assisted her and called 911. Patient reports she fell straight forward onto her abdomen and hitting her head. She is unsure how long she lost consciousness for. She sustained a small laceration to her chin and complains of pain to her head, posterior neck, and lower abdomen. Patient is currently 22 weeks . She has a history of factor V Leiden and takes Lovenox daily. She is high risk due to this. No nausea, vomiting, diarrhea, cough, SOB, CP, urinary symptoms. Related Data Home Medications Medication Instructions Recorded Confirmed enoxaparin 40 mg/0.4 mL 1 syr DAILY 01/24/22 01/24/22 subcutaneous syringe Allergies Allergy/AdvReac Type Severity Reaction Status Date / Time diphenhydramine Allergy Severe Anaphylactic Verified 01/26/22 12:37 [From Benadryl] Shock ketorolac Allergy Severe Anaphylactic Verified 01/26/22 12:37 Shock Review of Systems Review of Systems: CONSTITUTIONAL: Denies fever, chills, or sweats. EYES: Denies visual changes. CARDIOVASCULAR: Denies chest pain. RESPIRATORY: Denies cough or dyspnea. GASTROINTESTINAL: Reports lower abdominal pain. Denies nausea, vomiting, or diarrhea. GENITOURINARY: Denies dysuria or hematuria. SKIN: Reports laceration to chin. Denies rash or itching. MUSCULOSKELETAL: Reports posterior neck pain. NEUROLOGIC: Reports dizziness, lightheadedness, syncope, head injury, headache. All systems reviewed & are unremarkable except as noted in HPI and below PMFSH Past Medical History Medical History (Updated 01/26/22 @ 19:05 by Sandrine Fountain PA-C) Anxiety Factor V Leiden History of pulmonary embolism Migraine Pancreatitis Surgical History Surgical History History of cholecystectomy History of tonsillectomy Family History Family History Father Diabetes mellitus Patient's father is in good health Grandparent Diabetes mellitus Hypertension Mother Patient's mother is in good health Sibling Patient's sister is in good health Social History Social History Second hand tobacco smoke exposure: No Alcohol intake: never Substance use: never Substance use type: does not use Gender identity (if verbalized by the patient): Female Sexual Orientation (if Verbalized by the Patient): Straight or Heterosexual Exam Narrative: GENERAL: Well appearing, well-nourished, non-toxic, in mild acute distress. HEAD: Normocephalic, atraumatic. EYES: PERRL/EOMI, conjunctivae clear bilaterally. NECK: Supple. No adenopathy, no masses. Mild paraspinal muscle tenderness bilaterally. RESPIRATORY: Airway patent, respirations nonlabored. Clear to auscultation bilaterally, no rales, rhonchi, wheezing. CARDIOVASCULAR: Regular rate and rhythm without murmurs, rubs, or gallops. Radial pulses 2+ and equal bilaterally. ABDOMINAL: Soft, mild tenderness to palpation in lower ABD/suprapubic region, nondistended, no hepatosplenomegaly. Normoactive BS. MUSCULOSKELETAL: Moves all extremities. Strength/ROM intact without gross deformities or TTP. Mild tenderness to palpation in lumbar paraspinal muscles bilaterally. SKIN: Warm, dry, normal color. No rashes. Half centimeter laceration to inferior chin with minimal active bleeding. Small scabbe
[2022-01-26 12:17] LABS: Basophils Percent Auto 0.3 % (0.2-1.2); Eosinophils Absolute Auto 0.1 K/mm3 (0-0.3); Eosinophils Percent Auto 1.4 % (0-4.4); Hematocrit 30.4 % (37.0-47.0); Hemoglobin 9.6 g/dL (12.0-15.0); Immature Granulocyte Absolute 0.04 K/mm3 (0.00-0.031); Immature Granulocyte Percent A 0.6 % (0-0.5); Lymphocytes Percent Auto 24.9 % (18.3-44.2); Mean Corpuscular HGB Conc 31.6 g/dl (32-36); Mean Corpuscular Hemoglobin 26.7 pg (26-34); Mean Corpuscular Volume 84.7 fl (80-100); Mean Platelet Volume 10.3 fl (7.4-10.4); Monocytes Absolute Auto 0.4 K/mm3 (0.1-0.6); Monocytes Percent Auto 5.9 % (2.6-8.5); Neutrophils Absolute Auto 4.3 K/mm3 (1.3-6.7); Neutrophils Percent Auto 66.9 % (45.5-73.1); Platelet Count Result 287 k/mm3 (150-375); Red Blood Count 3.59 M/mm3 (4.2-5.4); Red Cell Distribution Width 15.5 % (11.5-14.5); White Blood Count 6.4 K/mm3 (4.5-10.0)
[2022-01-26 12:29] LABS: Alanine Aminotransferase 8 U/L (6-35); Alkaline Phosphatase 58 U/L (38-126); Anion Gap 4 mmol/L (8-16); Aspartate Amino Transferase 14 U/L (14-36); Bilirubin,Total 0.3 mg/dL (0.2-1.3); Blood Urea Nitrogen 4 mg/dL (7-17); Calcium 7.7 mg/dL (8.4-10.2); Carbon Dioxide 25 mmol/L (22-30); Chloride 105 mmol/L (98-107); Estimated CRCL calculation 212 ml/min; Estimated Glomerular Filt Rate > 60; Glucose 82 mg/dL (65-110); Potassium 3.1 mmol/L (3.4-5.0); Sodium 134 mmol/L (137-145)
--- NOTE | 2022-01-26 12:56 | PC.NURSE ---
called lab to add on a PT/INR/PTT at 1255. spoke to Maricruz
--- NOTE | 2022-01-26 13:00 | PC.NURSE ---
patient off unit to radiology for imaging and US.
[2022-01-26 13:11] LABS: Prothrombin Time 13.1 Seconds (11.1-14.7)
[2022-01-26] MEDS: SODIUM CHLORIDE 0.9% IV 1,000 ML 999 ML IV CONT ×3 (14:04→18:17)
[2022-01-26] MEDS: POTASSIUM CHLORIDE 20 MEQ TABLET 40 MEQ PO (14:13)
[2022-01-26 14:41] LABS: Appearance Urine Slightly Cloudy (Clear); Color Urine Yellow (Yellow)
[2022-01-26 14:43] LABS: Blood Urine Negative (Negative); Glucose Urine UA Negative (Negative); Ketones Urine Trace mg/dL (Negative); Nitrate Urine Negative (Negative); Protein Urine Trace mg/dL (Negative); pH Urine 7.5 (5.0-9.0)
[2022-01-26 14:44] LABS: Add Urine Microscopic? YES; Bilirubin Urine Negative (Negative); Leukocyte Esterase Ur Trace LEU/UL (Negative); Urobilinogen Urine 0.2 mg/dL (<2.0)
[2022-01-26 14:45] LABS: Bacteria Urine Trace /hpf; Mucus Urine Moderate /lpf; RBC Urine 0-2 /hpf (0-2); Squamous Epithelial Cell Urine Many /hpf (Few); WBC Urine 0-3 /hpf
[2022-01-26 16:17] LABS: Glucose Point of Care 76 mg/dl (65-105)
== END 2022-01-26 19:28 | disposition home or self-care (01) ==
PROVIDERS: Physician Assistant; Emergency Provider Emergency Medicine
DX: O26.892 Other specified pregnancy related conditions, second trimester (principal); R55 Syncope and collapse; O9A.212 Injury, poisoning and certain other consequences of external causes complicating pregnancy, second trimester; S01.81XA Laceration without foreign body of other part of head, initial encounter; S39.91XA Unspecified injury of abdomen, initial encounter; O99.112 Other diseases of the blood and blood-forming organs and certain disorders involving the immune mechanism complicating pregnancy, second trimester; D68.51 Activated protein C resistance; O09.892 Supervision of other high risk pregnancies, second trimester; Z3A.22 22 weeks gestation of pregnancy; Z86.711 Personal history of pulmonary embolism; I45.10 Unspecified right bundle-branch block; W18.39XA Other fall on same level, initial encounter
CPT/HCPCS: 12011; 36415; 70450; 72125; 76815; 80053; 81001; 82948; 85025; 85610; 85730; 87086; 93005; 96361; 96365; 99284; A9270; J0131; J7030

== ENCOUNTER 2022-02-07 11:37 | Emergency (ER) | payer OTHER, SELFPAY ==
--- NOTE | ~2022-02-07 | XR_ITS ---
EXAMINATION: XR chest 2V 02/07/2022 12:18 INDICATION: Chest pain and shortness of breath PROCEDURE: 2 view chest COMPARISON: 07/08/2018 FINDINGS: The lungs are clear. The cardiomediastinal silhouette is within normal limits. There are no pleural effusions. There is no pneumothorax suspected. IMPRESSION: 1: NO ACUTE CARDIOPULMONARY DISEASE. Reviewed, dictated and finalized at location B.
--- NOTE | ~2022-02-07 | US_ITS ---
EXAMINATION:US venous doppler LE BI INDICATION:Leg pain TECHNIQUE: Multiple grayscale, color flow and Doppler images of the right and left lower extremity de ep venous systems were obtained and reviewed. COMPARISON:Ultrasound dated 08/15/2018 FINDINGS: The common femoral, superficial femoral and popliteal veins demonstrate normal respiratory variation, augmentation and compressibility. Color flow is also seen within the posterior tibial, pe roneal, greater saphenous and profunda veins. IMPRESSION: 1: No lower extremity deep venous thrombosis. Reviewed, dictated and finalized at location B.
--- NOTE | ~2022-02-07 | NM_ITS ---
EXAMINATION: NM pulmonary perfusion DATE: 02/07/2022 14:16 INDICATION: TECHNIQUE: 3.4 mCi Tc-99m MAA was administered intravenously for perfusion images. Scintigraphic zina ges of the chest were obtained. COMPARISON: X-ray chest 02/07/2022 at 12:10 PM FINDINGS: Perfusion images show normal, expected activity bilaterally, without defect. IMPRESSION: 1. Low probability for pulmonary embolism. Reviewed, dictated and finalized at location K.
[2022-02-07 11:38] VITALS: BP 133/50; PULSE 92; RESP 16; TEMP 36.1; O2SAT 98
--- NOTE | 2022-02-07 11:38 | ECG_ITS ---
Measurements Intervals [place] Rate: 101 P: 36 [place]: 128 QRS: 51 QRSD: 90 T: 2 QT: 348 QTc: 451 Interpretive Statements SINUS TACHYCARDIA NONSPECIFIC ST & T-WAVE ABNORMALITY ABNORMAL RHYTHM ECG COMPARED TO ECG 01/26/2022 12:06:08 SINUS TACHYCARDIA NOW PRESENT T-WAVE ABNORMALITY NOW PRESENT Electronically Signed On 02-07-2022 22:12:30 CDT by Macie Kay M.D.
[2022-02-07 11:45] VITALS: PULSE 101
[2022-02-07 12:11] LABS: Basophils Percent Auto 0.2 % (0.2-1.2); Eosinophils Absolute Auto 0.1 K/mm3 (0-0.3); Eosinophils Percent Auto 0.8 % (0-4.4); Hematocrit 32.9 % (37.0-47.0); Hemoglobin 10.7 g/dL (12.0-15.0); Immature Granulocyte Absolute 0.04 K/mm3 (0.00-0.031); Immature Granulocyte Percent A 0.7 % (0-0.5); Lymphocytes Absolute Auto 1.35 K/mm3 (0.9-3.2); Lymphocytes Percent Auto 22.9 % (18.3-44.2); Mean Corpuscular HGB Conc 32.5 g/dl (32-36); Mean Corpuscular Hemoglobin 26.8 pg (26-34); Mean Corpuscular Volume 82.5 fl (80-100); Mean Platelet Volume 10.1 fl (7.4-10.4); Monocytes Absolute Auto 0.3 K/mm3 (0.1-0.6); Monocytes Percent Auto 4.9 % (2.6-8.5); Neutrophils Absolute Auto 4.2 K/mm3 (1.3-6.7); Neutrophils Percent Auto 70.5 % (45.5-73.1); Platelet Count Result 375 k/mm3 (150-375); Red Blood Count 3.99 M/mm3 (4.2-5.4); Red Cell Distribution Width 15.9 % (11.5-14.5); White Blood Count 5.9 K/mm3 (4.5-10.0)
[2022-02-07 12:23] LABS: Prothrombin Time 12.8 Seconds (11.1-14.7)
[2022-02-07 12:24] LABS: Alanine Aminotransferase 7 U/L (6-35); Albumin Level 3.6 g/dL (3.5-5.1); Alkaline Phosphatase 76 U/L (38-126); Anion Gap 8 mmol/L (8-16); Aspartate Amino Transferase 14 U/L (14-36); Bilirubin,Total 0.7 mg/dL (0.2-1.3); Blood Urea Nitrogen 4 mg/dL (7-17); Calcium 8.3 mg/dL (8.4-10.2); Carbon Dioxide 23 mmol/L (22-30); Chloride 103 mmol/L (98-107); Estimated CRCL calculation 166 ml/min; Estimated Glomerular Filt Rate > 60; Glucose 91 mg/dL (65-110); Lipase 70 U/L (23-300); Potassium 3.3 mmol/L (3.4-5.0); Sodium 134 mmol/L (137-145)
[2022-02-07 12:34] LABS: Troponin I < 0.012 ng/mL (0.000-0.034)
[2022-02-07] MEDS: LACTATED RINGERS 1,000 ML 999 ML IV CONT (12:59)
[2022-02-07 13:00] VITALS: BP 99/65; PULSE 99; RESP 13; O2SAT 99
--- NOTE | 2022-02-07 13:05 | ED.CHESTPAIN ---
HPI - Chest Pain General Chief Complaint: Shortness of Breath/Dyspnea Stated Complaint: cp, sob Time Seen by Provider: 02/07/22 11:53 Source: patient, RN notes reviewed and old records reviewed Mode of arrival: ambulatory Limitations: no limitations History of Present Illness HPI narrative: This is a 21 year old female 22 weeks GA with history of PE who presents for evaluation of midsternal chest pain. Patient states since yesterday she has been having midsternal chest pain. This pain is intermittent and she reports occasional radiation to her back. When she has severe pain she feels sob. She denies sob if she does not have pain. She denies having pain now. She denies cough, fever, chills, calf pain or leg swelling. She is on 40 mg Lovenox daily for PE prophylaxis. She had episode of nausea and vomiting yesterday. MD complaint: chest pain Onset (ago): day(s) Related Data Home Medications Medication Instructions Recorded Confirmed enoxaparin 40 mg/0.4 mL 1 syr DAILY 01/24/22 02/07/22 subcutaneous syringe Allergies Allergy/AdvReac Type Severity Reaction Status Date / Time diphenhydramine Allergy Severe Anaphylactic Verified 02/07/22 11:45 [From Benadryl] Shock ketorolac Allergy Severe Anaphylactic Verified 02/07/22 11:45 Shock Review of Systems Review of Systems: All systems reviewed & are unremarkable except as noted in HPI and below PMFSH Past Medical History Medical History Anxiety Factor V Leiden History of pulmonary embolism Migraine Pancreatitis Surgical History Surgical History History of cholecystectomy History of tonsillectomy Family History Family History Father Diabetes mellitus Patient's father is in good health Grandparent Diabetes mellitus Hypertension Mother Patient's mother is in good health Sibling Patient's sister is in good health Social History Social History Second hand tobacco smoke exposure: No Alcohol intake: never Substance use: never Substance use type: does not use Gender identity (if verbalized by the patient): Female Sexual Orientation (if Verbalized by the Patient): Straight or Heterosexual Exam Const: General: no acute distress Nutritional Appearance: well nourished Orientation/consciousness: patient oriented x3 Limitations: no limitations HENMT: Head: normal to inspection Throat: posterior oropharynx normal Eyes: Conjunctivae: conjunctivae normal Pupils: Equal, round and reactive pupils present EOM: EOMs intact bilaterally Chest: Other: midsternal tenderness, reproducible, Resp: Effort & Inspection: normal respiratory effort Auscultation: clear to auscultation bilaterally Cardio: Rate: regular rate Rhythm: regular rhythm Heart sounds: no murmurs GI: GI Palp: Yes Soft to palpation, No Tenderness to palpation present (GI) and No Guarding due to palpation present (GI) Auscultation: normal bowel sounds Other: gravid Back/Spine/Pelvis: Back: no CVA tenderness Skin: Rashes: no rashes Wounds: no wounds Neuro: General: patient oriented x3, moves all extremities and CN's II-XI intact bilaterally Extrem: General: normal to inspection Psych: Mental Status: mental status grossly normal Affect: normal affect Attitude: cooperative Course Reevaluation(s) Reevaluation #1: I Discussed with patient that labs are stable. dopplers are negativen and VQ is low probability. She will continue her her lovenox. heart tones are 130s. Patient has reproducible sternal. THis pain has been due to chest wall or esophageal spasm. No OK. Seems unlikely aortic etiology. I spoke with her OB he agrees with discharge plan . She okays patient to be on pepcid 40 mg and try heating pad. Date: 02/07/22
[2022-02-07 14:38] VITALS: BP 118/59; PULSE 89; RESP 18; O2SAT 99
[2022-02-07 15:15] LABS: Troponin I < 0.012 ng/mL (0.000-0.034)
[2022-02-07 16:20] VITALS: BP 105/66; PULSE 91; RESP 18; O2SAT 100
== END 2022-02-07 16:23 | disposition home or self-care (01) ==
PROVIDERS: Family Medicine; Emergency Provider General Practice; PCP Family Medicine
DX: O26.892 Other specified pregnancy related conditions, second trimester (principal); R07.89 Other chest pain; O99.112 Other diseases of the blood and blood-forming organs and certain disorders involving the immune mechanism complicating pregnancy, second trimester; D68.51 Activated protein C resistance; Z86.711 Personal history of pulmonary embolism; Z3A.22 22 weeks gestation of pregnancy; Z79.02 Long term (current) use of antithrombotics/antiplatelets
CPT/HCPCS: 36415; 71046; 78580; 80053; 83690; 84484; 85025; 85610; 85730; 93005; 93970; 96360; 96361; 99284; A9540; J7120

== ENCOUNTER 2022-02-18 10:15 | Observation (INO) | payer OTHER, SELFPAY ==
[2022-02-18 10:24] VITALS: BP 125/55; PULSE 80
[2022-02-18 10:30] VITALS: BP 118/72; PULSE 91
[2022-02-18 10:45] VITALS: BP 112/68; PULSE 96
--- NOTE | 2022-02-18 11:05 | PC.NURSE ---
1020- Patient presents with right sided back pain, radiating around to abdomen. Reports that this intense pain started last evening. States that she was disagnosed with BV and a UTI on saturday, but has not yet picked up scripts from the pharmacy. Also, reports a history of a PE after last , blood clots, Factor IV, but is not taking lovenox as prescribed. Patient is asking to be trasferred to [facility], where she is currently being seen as a high risk patient. 1032- SPoke with Dr. melissa who is the graphics production specialist doctor, history and assessment discussed. Per Dr. Melissa, unable to do a lateral transfer to [facility], patient may sign out AMA to take herself there if she is wanting to be seen by them. Orders received for a UA, urine culture, IV access, D5 LR fluid bolus 1 liter, then 150mls/hr, and 1 gm IV Tylenol. 1036- In patient room discussing plan of care with patient. patient is stating that she would like to sign out AMA and transport herself to [facility]. 1045- Called Dr. Melissa to informthat patient is leaving AMA. 1055- Patient dressed, AMA form signed, taken to waiting car via wheelchair.
--- NOTE | 2022-03-12 15:29 | P.PNOB_ITS ---
OB - PN: Subj Subjective Date/time seen: 03/12/22 15:29 Interval history: On 02/18/22 patient came to L and D with c/o right sided back pain. She is usually seen in [place]. She refused recommended evaluation of her pain and signed out AMA to go to her provider. OB - PN A/P Time Spent With Patient Time: Total time spent is greater than 50% in coordination of care (as documented) at patient's floor/unit and/or counseling patient:
== END 2022-02-18 10:55 | disposition left against medical advice (07) ==
LOC: ANHOBPP 10:21
PROVIDERS: Admitting Provider Obstetrics & Gynecology; PCP Family Medicine; Visit Provider Obstetrics & Gynecology
DX: O99.891 Other specified diseases and conditions complicating pregnancy (principal); M54.9 Dorsalgia, unspecified; Z3A.25 25 weeks gestation of pregnancy; Z53.29 Procedure and treatment not carried out because of patient's decision for other reasons
CPT/HCPCS: G0378; G0379

== ENCOUNTER 2022-04-16 19:47 | Observation (INO) | payer OTHER, SELFPAY ==
[2022-04-16] VITALS (12 sets, daily range): BP systolic 98–123; BP diastolic 53–99; PULSE 71–119; TEMP 36.6; O2SAT 97–100; BMI 26.3
[2022-04-16] MEDS: DEXTROSE 5%/0.45% SOD CHL 1,000 ML 999 ML IV CONT (20:48)
[2022-04-16] MEDS: fentaNYL CITRATE INJ (*CRX) 100 MCG/2 ML VIAL 50 MCG IV PUSH ×2 (20:48→22:06)
[2022-04-16 20:57] LABS: Basophils Percent Auto 0.3 % (0.2-1.2); Eosinophils Absolute Auto 0.1 K/mm3 (0-0.3); Eosinophils Percent Auto 1.3 % (0-4.4); Hematocrit 28.7 % (37.0-47.0); Immature Granulocyte Absolute 0.06 K/mm3 (0.00-0.031); Immature Granulocyte Percent A 0.6 % (0-0.5); Lymphocytes Absolute Auto 1.57 K/mm3 (0.9-3.2); Lymphocytes Percent Auto 16.2 % (18.3-44.2); Mean Corpuscular HGB Conc 31.4 g/dl (32-36); Mean Corpuscular Hemoglobin 25.1 pg (26-34); Mean Corpuscular Volume 80.2 fl (80-100); Mean Platelet Volume 10.3 fl (7.4-10.4); Monocytes Absolute Auto 0.5 K/mm3 (0.1-0.6); Monocytes Percent Auto 4.8 % (2.6-8.5); Neutrophils Absolute Auto 7.4 K/mm3 (1.3-6.7); Neutrophils Percent Auto 76.8 % (45.5-73.1); Platelet Count Result 350 k/mm3 (150-375); Red Blood Count 3.58 M/mm3 (4.2-5.4); Red Cell Distribution Width 16.5 % (11.5-14.5); White Blood Count 9.7 K/mm3 (4.5-10.0)
[2022-04-16 20:58] LABS: Appearance Urine Clear (Clear); Bilirubin Urine Negative (Negative); Blood Urine 1+ (Negative); Color Urine Yellow (Yellow); Glucose Urine UA Negative (Negative); Ketones Urine 4+ mg/dL (Negative); Leukocyte Esterase Ur 3+ LEU/UL (NEGATIVE); Nitrate Urine Positive (Negative); Protein Urine 2+ mg/dL (Negative); Specific Grav Ur 1.025 (1.001-1.035); pH Urine 6.5 (5.0-9.0)
[2022-04-16 21:06] LABS: Albumin Level 3.2 g/dL (3.5-5.1); Alkaline Phosphatase 136 U/L (38-126); Anion Gap 11 mmol/L (8-16); Aspartate Amino Transferase 14 U/L (14-36); Bacteria Urine 4+ /hpf; Bilirubin,Total 0.6 mg/dL (0.2-1.3); Blood Urea Nitrogen 4 mg/dL (7-17); Calcium 8.3 mg/dL (8.4-10.2); Carbon Dioxide 22 mmol/L (22-30); Chloride 100 mmol/L (98-107); Estimated CRCL calculation 165 ml/min; Estimated Glomerular Filt Rate > 60; Glucose 71 mg/dL (65-110); Mucus Urine Rare /lpf; Sodium 133 mmol/L (137-145); Squamous Epithelial Cell Urine Rare /hpf (Few); WBC Clumps Urine Present /HPF; WBC Urine >75 /hpf (0-3)
[2022-04-16 21:09] LABS: Add Urine Microscopic? YES
[2022-04-16 21:25] LABS: Alanine Aminotransferase < 6 U/L (6-35)
[2022-04-16] MEDS: HYDROcodone/acetaminophen (*CRX) 10-325 MG TABLET 1 TAB PO (22:02)
[2022-04-16] MEDS: KCL 20 MEQ/D5/0.45% SOD CHL 1,000 ML 125 ML IV CONT (22:03)
[2022-04-16] MEDS: fentaNYL CITRATE INJ (*CRX) 100 MCG/2 ML VIAL IV PUSH (23:20)
[2022-04-17] VITALS: PULSE 96; O2SAT 100
[2022-04-17 00:02] VITALS: PULSE 90; O2SAT 100
--- NOTE | 2022-05-14 11:48 | P.PNOB_ITS ---
OB - Triage/Final Diagnosis Visit Information Comments/Additional reasons for admission: I have assessed the risk for this patient, Augusta Michaud, and determined that she would benefit from observation care. Evaluation Laboratory results: Laboratory Tests 04/16/22 04/16/22 04/16/22 20:50 20:50 20:50 WBC 9.7 RBC 3.58 L Hgb 9.0 L Hct 28.7 L MCV 80.2 MCH 25.1 L MCHC 31.4 L RDW 16.5 H Plt Count 350 MPV 10.3 Immature Gran % (Auto) 0.6 H Neut % (Auto) 76.8 H Lymph % (Auto) 16.2 L [place] % (Auto) 4.8 Eos % (Auto) 1.3 Baso % (Auto) 0.3 Lymph # (Auto) 1.57 [place] # (Auto) 0.5 Eos # (Auto) 0.1 Baso # (Auto) 0.0 Abs Immat Gran (auto) 0.06 H Absolute Neuts (auto) 7.4 H Absolute Nucleated RBC 0.0 Nucleated RBC % 0.0 Sodium 133 L Potassium 3.0 L Chloride 100 Carbon Dioxide 22 Anion Gap 11 BUN 4 L Creatinine 0.40 L Estim Creat Clear Calc 165 Estimated GFR > 60 Glucose 71 Calcium 8.3 L Total Bilirubin 0.6 AST 14 ALT < 6 L Alkaline Phosphatase 136 H Total Protein 6.0 L Albumin 3.2 L Urine Color Yellow Urine Appearance Clear Urine pH 6.5 Ur Specific [place] 1.025 Urine Protein 2+ H Urine Glucose (UA) Negative Urine Ketones 4+ H Ur Blood (Man) 1+ H Urine Nitrate Positive Urine Bilirubin Negative Urine Urobilinogen 2.0 H Ur Leukocyte Esterase 3+ H Urine RBC 11-20 H Urine WBC >75 H Urine WBC Clumps Present H Ur Squamous Epith Cells Rare Urine Bacteria 4+ H Urine Mucus Rare Final Diagnosis (1) Abdominal pain affecting : Code(s): O26.899 - Other specified related conditions, unspecified trimester; R10.9 - Unspecified abdominal pain Status: Acute
== END 2022-04-17 00:45 | disposition home or self-care (01) ==
PROVIDERS: Admitting Provider Obstetrics & Gynecology; PCP Family Medicine; Visit Provider Obstetrics & Gynecology
DX: O26.893 Other specified pregnancy related conditions, third trimester (principal); R10.9 Unspecified abdominal pain; M54.9 Dorsalgia, unspecified; Z3A.33 33 weeks gestation of pregnancy
CPT/HCPCS: 36415; 80053; 81001; 85025; 87077; 87086; 87186; 96365; 96375; 96376; A9270; G0378; G0379; J0696; J3010; J3480

== ENCOUNTER 2022-05-05 21:53 | Observation (INO) | payer OTHER, SELFPAY ==
[2022-05-05] VITALS (8 sets, daily range): BP systolic 103–128; BP diastolic 68–90; PULSE 81–119; BMI 28.0
[2022-05-05] MEDS: ACETAMINOPHEN 500 MG TABLET 1000 MG PO (22:40)
[2022-05-05 22:41] LABS: Basophils Percent Auto 0.2 % (0.2-1.2); Eosinophils Absolute Auto 0.1 K/mm3 (0-0.3); Eosinophils Percent Auto 1.6 % (0-4.4); Hematocrit 27.5 % (37.0-47.0); Hemoglobin 8.7 g/dL (12.0-15.0); Immature Granulocyte Absolute 0.03 K/mm3 (0.00-0.031); Immature Granulocyte Percent A 0.5 % (0-0.5); Lymphocytes Absolute Auto 1.55 K/mm3 (0.9-3.2); Mean Corpuscular HGB Conc 31.6 g/dl (32-36); Mean Corpuscular Hemoglobin 24.4 pg (26-34); Monocytes Absolute Auto 0.3 K/mm3 (0.1-0.6); Monocytes Percent Auto 5.5 % (2.6-8.5); Neutrophils Absolute Auto 4.2 K/mm3 (1.3-6.7); Neutrophils Percent Auto 67.2 % (45.5-73.1); Platelet Count Result 327 k/mm3 (150-375); Red Blood Count 3.57 M/mm3 (4.2-5.4); Red Cell Distribution Width 17.1 % (11.5-14.5); White Blood Count 6.2 K/mm3 (4.5-10.0)
--- NOTE | 2022-05-05 22:42 | OBADM ---
This patient, Augusta Michaud, admitted to the OB room Labor/Delivery/Recovery 106 for observation. Patient/family oriented to hospital policies and general routines including ID bracelet, bed and alarms, visiting hours, pain management, procedures, bathroom and other care routines, personal items, smoking policy, room service/diet, and visiting hours. Patient/Family are encouraged to report perceived risks to care and to ask questions if they do not understand what they are told or what they should do.
[2022-05-05 22:48] LABS: Appearance Urine Slightly Cloudy (Clear); Bilirubin Urine 1+ (Negative); Blood Urine Negative (Negative); Color Urine Yellow (Yellow); Glucose Urine UA Negative (Negative); Ketones Urine 2+ mg/dL (Negative); Leukocyte Esterase Ur 1+ LEU/UL (Negative); Nitrate Urine Negative (Negative); Protein Urine Negative (Negative); Specific Grav Ur 1.025 (1.001-1.035)
[2022-05-05 22:50] LABS: Alanine Aminotransferase 6 U/L (6-35); Albumin Level 3.2 g/dL (3.5-5.1); Alkaline Phosphatase 124 U/L (38-126); Anion Gap 6 mmol/L (8-16); Aspartate Amino Transferase 15 U/L (14-36); Bilirubin,Total 0.5 mg/dL (0.2-1.3); Blood Urea Nitrogen 7 mg/dL (7-17); Calcium 9.2 mg/dL (8.4-10.2); Carbon Dioxide 24 mmol/L (22-30); Chloride 104 mmol/L (98-107); Estimated CRCL calculation 180 ml/min; Estimated Glomerular Filt Rate > 60; Glucose 84 mg/dL (65-110); Potassium 3.3 mmol/L (3.4-5.0); Sodium 134 mmol/L (137-145); Uric Acid 3.6 mg/dL (2.5-7.5)
--- NOTE | 2022-05-05 22:51 | PC.NURSE ---
2221- paged Dr. Lopez [phone]- Dr. Lopez responded to page. informed of pt admission for abd pain, back pain, headache since 6am, and vaginal pressure. cervical exam %/-2 soft. ROM plus negative. orders received. will continue to monitor and call with lab results or questions/concerns.
[2022-05-05 22:59] LABS: Add Urine Microscopic? YES
[2022-05-05 23:09] LABS: RBC Urine 0-2 /hpf (0-2); WBC Urine 0-3 /hpf
[2022-05-06] VITALS: BP 121/82; PULSE 88
[2022-05-06 00:16] VITALS: BP 112/71; PULSE 99
--- NOTE | 2022-05-06 00:29 | PC.NURSE ---
0020- Dr. Lopez in department. labs reviewed. tracing reviewed. orders received. will continue to monitor pt and call if questions/concerns
[2022-05-06 00:31] VITALS: BP 109/64; PULSE 83
[2022-05-06] MEDS: DEXTROSE 5%/LACTATED RINGERS 1,000 ML 999 ML IV CONT (00:37)
[2022-05-06] MEDS: SUMAtriptan SUCCINATE 25 MG TABLET 100 MG PO (00:38)
[2022-05-06 00:45] VITALS: BP 114/76; PULSE 85
--- NOTE | 2022-05-06 02:05 | PC.NURSE ---
pt requesting to d/c home. pt states that her headache is a 3/10 but getting better. pt states that she did throw up and now she feels better. no change in cervical exam. per Dr. Lopez's orders pt may d/c home with instructions on when to return to L&D.
--- NOTE | 2022-05-23 14:44 | P.PNOB_ITS ---
OB - Triage/Final Diagnosis Visit Information Comments/Additional reasons for admission: I have assessed the risk for this patient, Augusta Michaud, and determined that she would benefit from observation care. Evaluation Laboratory results: Laboratory Tests 05/05/22 05/05/22 05/05/22 22:36 22:36 22:36 WBC 6.2 RBC 3.57 L Hgb 8.7 L Hct 27.5 L MCV 77.0 L MCH 24.4 L MCHC 31.6 L RDW 17.1 H Plt Count 327 MPV 10.0 Immature Gran % (Auto) 0.5 Neut % (Auto) 67.2 Lymph % (Auto) 25.0 [place] % (Auto) 5.5 Eos % (Auto) 1.6 Baso % (Auto) 0.2 Lymph # (Auto) 1.55 [place] # (Auto) 0.3 Eos # (Auto) 0.1 Baso # (Auto) 0.0 Abs Immat Gran (auto) 0.03 Absolute Neuts (auto) 4.2 Absolute Nucleated RBC 0.0 Nucleated RBC % 0.0 Sodium 134 L Potassium 3.3 L Chloride 104 Carbon Dioxide 24 Anion Gap 6 L BUN 7 Creatinine 0.40 L Estim Creat Clear Calc 180 Estimated GFR > 60 Glucose 84 Uric Acid 3.6 Calcium 9.2 Total Bilirubin 0.5 AST 15 ALT 6 Alkaline Phosphatase 124 Total Protein 6.0 L Albumin 3.2 L Urine Color Yellow Urine Appearance Slightly cloudy Urine pH 7.0 Ur Specific [place] 1.025 Urine Protein Negative Urine Glucose (UA) Negative Urine Ketones 2+ H Ur Blood (Man) Negative Urine Nitrate Negative Urine Bilirubin 1+ H Urine Urobilinogen 2.0 H Leukocyte Esterase Rfl 1+ H Urine RBC 0-2 Urine WBC 0-3 Final Diagnosis (1) Abdominal pain affecting : Code(s): O26.899 - Other specified related conditions, unspecified trimester; R10.9 - Unspecified abdominal pain Status: Acute
== END 2022-05-06 02:15 | disposition home or self-care (01) ==
LOC: ANHLDR 05-06 02:10 → ANHOBPP 05-09 10:23
PROVIDERS: Admitting Provider Obstetrics & Gynecology; PCP Family Medicine; Visit Provider Obstetrics & Gynecology
DX: O26.893 Other specified pregnancy related conditions, third trimester (principal); R10.9 Unspecified abdominal pain; M54.9 Dorsalgia, unspecified; R51.9 Headache, unspecified; Z3A.36 36 weeks gestation of pregnancy
CPT/HCPCS: 36415; 80053; 81001; 84112; 84550; 85025; 96360; A9270; G0378; J7121

== ENCOUNTER 2022-05-11 06:33 | Inpatient (IN) | payer OTHER, SELFPAY ==
[2022-05-11] VITALS (104 sets, daily range): BP systolic 96–145; BP diastolic 42–124; PULSE 63–148; RESP 16–18; TEMP 36.6–37.2; O2SAT 95–100; BMI 27.8
--- NOTE | 2022-05-11 06:33 | LDADM ---
This patient, Augusta Michaud, was admitted to Labor [facility] on 05/11/22 at 06:33. Plans for labor, pain management and were discussed with patient. Patient/family oriented to hospital policies and general routines including ID bracelet, bed and alarms, visiting hours, pain management, procedures, bathroom and other care routines, personal items, smoking policy, room service/diet and guest tray routines, security routines, and visiting hours. Patient/Family are encouraged to report perceived risks to care and to ask questions if they do not understand what they are told or what they should do. See OBIX for further documentation.
[2022-05-11 07:22] LABS: Basophils Percent Auto 0.4 % (0.2-1.2); Eosinophils Absolute Auto 0.2 K/mm3 (0-0.3); Eosinophils Percent Auto 2.2 % (0-4.4); Hematocrit 30.5 % (37.0-47.0); Hemoglobin 9.6 g/dL (12.0-15.0); Immature Granulocyte Absolute 0.07 K/mm3 (0.00-0.031); Immature Granulocyte Percent A 0.8 % (0-0.5); Lymphocytes Absolute Auto 1.82 K/mm3 (0.9-3.2); Mean Corpuscular HGB Conc 31.5 g/dl (32-36); Mean Corpuscular Hemoglobin 24.1 pg (26-34); Mean Corpuscular Volume 76.4 fl (80-100); Mean Platelet Volume 10.1 fl (7.4-10.4); Monocytes Absolute Auto 0.5 K/mm3 (0.1-0.6); Monocytes Percent Auto 5.7 % (2.6-8.5); Neutrophils Absolute Auto 5.7 K/mm3 (1.3-6.7); Neutrophils Percent Auto 68.9 % (45.5-73.1); Platelet Count Result 390 k/mm3 (150-375); Red Blood Count 3.99 M/mm3 (4.2-5.4); Red Cell Distribution Width 17.2 % (11.5-14.5); White Blood Count 8.3 K/mm3 (4.5-10.0)
[2022-05-11 07:27] LABS: Alanine Aminotransferase 10 U/L (6-35); Albumin Level 3.7 g/dL (3.5-5.1); Alkaline Phosphatase 173 U/L (38-126); Anion Gap 12 mmol/L (8-16); Aspartate Amino Transferase 18 U/L (14-36); Bilirubin,Total 0.8 mg/dL (0.2-1.3); Blood Urea Nitrogen 6 mg/dL (7-17); Calcium 9.3 mg/dL (8.4-10.2); Carbon Dioxide 21 mmol/L (22-30); Chloride 103 mmol/L (98-107); Estimated CRCL calculation 179 ml/min; Estimated Glomerular Filt Rate > 60; Glucose 78 mg/dL (65-110); Potassium 3.2 mmol/L (3.4-5.0); Sodium 136 mmol/L (137-145); Uric Acid 4.2 mg/dL (2.5-7.5)
[2022-05-11 07:28] LABS: Amphetamine Screen Urine Negative (Negative); Barbiturate Screen Urine Negative (Negative); Benzodiazepines Screen Urine Negative (Negative); Cannabinoid Screen Urine Positive (Negative); Cocaine Screen Urine Negative (Negative); Methadone Screen Urine Negative (Negative); Opiate Screen Urine Negative (Negative); Phencyclidine Screen Urine Negative (Negative)
--- NOTE | 2022-05-11 07:28 | PM.OBPNLAB ---
Pain Control Date/time seen: 05/11/22 07:28 Pain control: tolerating well Pelvic Exam Dilation (cm): 4 Effacement (%): 80 station: -1 Amniotic membrane status: Ruptured
--- NOTE | 2022-05-11 07:29 | PM.IMHP ---
H&P: HPI History of Present Illness Date/Time: 05/11/22 07:29 Chief Complaint: Term for induction with history of factor 5 Leiden deficiency Narrative: This 22 year multiparous at term for induction of labor. Her is complicated by history of factor 5 Leiden deficiency for which she had been on Lovenox until 2 weeks ago which EB Pap. Her last dose of heparin was yesterday afternoon. Cervix is advanced and her blood pressure is elevated she is negative for group B strep PMFSH Past Medical History Medical History Anxiety Factor V Leiden History of pulmonary embolism Migraine Pancreatitis Surgical History Surgical History History of cholecystectomy History of tonsillectomy Family History Family History Father Diabetes mellitus Patient's father is in good health Grandparent Diabetes mellitus Hypertension Mother Patient's mother is in good health Sibling Patient's sister is in good health Social History Social History Smoking status: Never smoker Second hand tobacco smoke exposure: No Alcohol intake: never Substance use: never Substance use type: does not use Gender identity (if verbalized by the patient): Female Sexual Orientation (if Verbalized by the Patient): Straight or Heterosexual Spiritual care concerns: No Meds Home Medications and Allergies Home Medications Medication Instructions Recorded Confirmed Type heparin, porcine (PF) 5,000 5,000 unit BID 05/05/22 05/05/22 History unit/mL injection syringe Allergies Allergy/AdvReac Type Severity Reaction Status Date / Time diphenhydramine Allergy Severe Anaphylactic Verified 05/05/22 22:47 [From Benadryl] Shock ketorolac Allergy Severe Anaphylactic Verified 05/05/22 22:47 Shock morphine AdvReac Hallucinati Verified 05/05/22 22:47 ng Vital Signs Vital Signs - 24 hr 05/11/22 07:16 Pulse Rate 80 Blood Pressure 116/72 Exam Const: General: cooperative, healthy appearing and comfortable Nutritional Appearance: average body habitus HENMT: Head: normal to inspection Chest: Chest palpation & inspection: normal inspection of the chest Resp: Effort & Inspection: normal respiratory effort Cardio: Rate: regular rate Rhythm: regular rhythm Heart sounds: S1 normal heart sound present and S2 normal heart sound present GI: Inspection: normal to inspection : External Female Exam: normal external appearance Speculum Exam - Cervix: normal appearance of the cervix and Cervical os closed (Cervix 4/80/1. AROM clear. FHTs reassuring) Bimanual exam- vagina & uterus: enlarged H&P: Results Labs Labs: Short CBC 05/11/22 Range/Units 07:00 WBC 8.3 (4.5-10.0) K/mm3 Hgb 9.6 L (12.0-15.0) g/dL Hct 30.5 L (37.0-47.0) % Plt Count 390 H (150-375) k/mm3 BMP 05/11/22 07:00 Sodium 136 L Potassium 3.2 L Chloride 103 Carbon Dioxide 21 L BUN 6 L Creatinine 0.40 L Glucose 78 Calcium 9.3 Liver Function 05/11/22 Range/Units 07:00 Total Bilirubin 0.8 (0.2-1.3) mg/dL AST 18 (14-36) U/L ALT 10 (6-35) U/L Alkaline Phosphatase 173 H (38-126) U/L Albumin 3.7 (3.5-5.1) g/dL Assessment and Plan Assessment and plan (1) Factor V Leiden: Code(s): D68.51 - Activated protein C resistance Status: Acute (2) Term : Code(s): Z34.90 - Encounter for supervision of normal , unspecified, unspecified trimester Status: Acute Plan Medical induction of labor. She has an epidural candidate. Will get [facility] labs and bleeding parameters
[2022-05-11 07:37] LABS: Partial Thromboplastin Time 25.7 SECONDS (22.3-36.8); Prothrombin Time 12.3 Seconds (11.1-14.7)
[2022-05-11] MEDS: ONDANSETRON INJ 4 MG/2 ML VIAL IV PUSH (07:55)
[2022-05-11] MEDS: LACTATED RINGERS 1,000 ML 125 ML IV CONT ×3 (07:58→10:45)
[2022-05-11] MEDS: OXYTOCIN 30 UNITS/NS 500 ML 30 UNITS/500 ML BAG IV CONT (07:59)
[2022-05-11] MEDS: POTASSIUM CHLORIDE 20 MEQ TABLET PO (08:15)
--- NOTE | 2022-05-11 09:33 | WPDANESEPP ---
Anes - Eval Pre Procedure Procedure: labor epidural Date/Time: 05/11/22 09:33 Surgeon: Sixto Preop Diagnosis: Labor Pain Pre Op Diagnosis: iol Patient Data Age: 22 Gender: F Height: 1.65 m Weight: 76 kg Last Vital Signs Pulse 80 05/11/22 09:16 BP 128/78 05/11/22 09:16 Allergies Allergy/AdvReac Type Severity Reaction Status Date / Time diphenhydramine Allergy Severe Anaphylactic Verified 05/05/22 22:47 [From Benadryl] Shock ketorolac Allergy Severe Anaphylactic Verified 05/05/22 22:47 Shock morphine AdvReac Hallucinati Verified 05/05/22 22:47 ng Home Medications Medication Instructions Recorded Confirmed Type heparin, porcine (PF) 5,000 5,000 unit BID 05/05/22 05/11/22 History unit/mL injection syringe Laboratory Tests 05/11/22 05/11/22 05/11/22 07:00 07:00 07:00 WBC 8.3 K/mm3 K/mm3 (4.5-10.0) RBC 3.99 M/mm3 L M/mm3 (4.2-5.4) Hgb 9.6 g/dL L g/dL (12.0-15.0) Hct 30.5 % L % (37.0-47.0) MCV 76.4 fl L fl (80-100) MCH 24.1 pg L pg (26-34) MCHC 31.5 g/dl L g/dl (32-36) RDW 17.2 % H % (11.5-14.5) Plt Count 390 k/mm3 H k/mm3 (150-375) MPV 10.1 fl fl (7.4-10.4) Immature Gran % (Auto) 0.8 % H % (0-0.5) Neut % (Auto) 68.9 % % (45.5-73.1) Lymph % (Auto) 22.0 % % (18.3-44.2) [place] % (Auto) 5.7 % % (2.6-8.5) Eos % (Auto) 2.2 % % (0-4.4) Baso % (Auto) 0.4 % % (0.2-1.2) Lymph # (Auto) 1.82 K/mm3 K/mm3 (0.9-3.2) [place] # (Auto) 0.5 K/mm3 K/mm3 (0.1-0.6) Eos # (Auto) 0.2 K/mm3 K/mm3 (0-0.3) Baso # (Auto) 0.0 K/mm3 K/mm3 (0.0-0.1) Abs Immat Gran (auto) 0.07 K/mm3 H K/mm3 (0.00-0.031) Absolute Neuts (auto) 5.7 K/mm3 K/mm3 (1.3-6.7) Absolute Nucleated RBC 0.0 K/mm3 K/mm3 (0.0-0.012) Nucleated RBC % 0.0 % % (0.0-0.2) PT INR APTT Sodium 136 mmol/L L mmol/L (137-145) Potassium 3.2 mmol/L L mmol/L (3.4-5.0) Chloride 103 mmol/L mmol/L (98-107) Carbon Dioxide 21 mmol/L L mmol/L (22-30) Anion Gap 12 mmol/L mmol/L (8-16) BUN 6 mg/dL L mg/dL (7-17) Creatinine 0.40 mg/dL L mg/dL (0.7-1.0) Estim Creat Clear Calc 179 ml/min ml/min Estimated GFR > 60 (59 - ) Glucose 78 mg/dL mg/dL (65-110) Uric Acid 4.2 mg/dL mg/dL (2.5-7.5) Calcium 9.3 mg/dL mg/dL (8.4-10.2) Total Bilirubin 0.8 mg/dL mg/dL (0.2-1.3) AST 18 U/L U/L (14-36) ALT 10 U/L U/L (6-35) Alkaline Phosphatase 173 U/L H U/L (38-126) Total Protein 7.0 g/dL g/dL (6.3-8.2) Albumin 3.7 g/dL g/dL (3.5-5.1) Urine Opiates Screen Urine Methadone Screen Ur Barbiturates Screen Ur Phencyclidine Scrn Ur Amphetamine Screen U Benzodiazepines Scrn Urine Cocaine Screen U Cannabinoids Screen RPR Pending Blood Type Antibody Screen Antibody Identification Antigen Identification HALEY, IgG Interpret HALEY, Poly Interpret HAELY, Complement Interp 05/11/22 05/11/22 05/11/22 07:00 07:01 07:04 WBC RBC Hgb Hct MCV MCH MCHC RDW Plt Count MPV Immature Gran % (Auto) Neut % (Auto) Lymph % (Auto) [place] % (Auto) Eos % (Auto) Baso % (Auto) Lymph # (Auto) [place] # (Auto) Eos # (Auto) Baso # (Auto) Abs Immat Gran
--- NOTE | 2022-05-11 12:00 | PM.OBPRVD ---
OB - Delivery Note Procedure Delivery date: 05/11/22 Procedure: mil Events: Other (factor 5 leyden deficiency) Induction method: AROM Delivery monitor: External FHT Route of delivery: Episiotomy description: None Laceration Description: Perineal - 1st Degree Delivery repair: vicryl Specimen: No Quantitative Blood Loss (ml): 59 Anesthesia type: Epidural Disposition: Floor [place] Baby Date of : 05/11/22 Time of : 11:37 Weeks of gestation at delivery: 38 gender: Male Weight (pounds): 6 Weight (ounces): 3 presentation: vertex position: Right Occiput Anterior Placenta delivery description: Spontaneous Cord Vessel Description: 3 Vessels, Nuchal Cord and Loose
[2022-05-11] MEDS: OXYTOCIN 30 UNITS/NS 500 ML 30 UNITS/500 ML BAG 125 UNITS IV CONT (12:24)
[2022-05-11] MEDS: ACETAMINOPHEN 325 MG TABLET 650 MG PO (15:26)
[2022-05-11 16:51] LABS: Rapid Plasma Reagin Non-Reactive (NonReactive)
--- NOTE | 2022-05-11 17:24 | OBPPTRN ---
[id number] Patient transferred to post room #283 via W/C. Support person present. Oriented to unit, room, information board, rooming in, admission packet and security measures. Patient verbalizes understanding.
[2022-05-11] MEDS: POLYSACCHARIDE IRON COMPLEX 150 MG CAPSULE PO (20:25)
[2022-05-11] MEDS: DOCUSATE SODIUM 100 MG CAPSULE PO (20:25)
[2022-05-11] MEDS: LANOLIN (LANSINOH) 7.5 GM CREAM 1 APPLIC TOPICAL (20:27)
[2022-05-12 00:10] VITALS: BP 101/61; PULSE 92; RESP 18; TEMP 36.6; O2SAT 98
[2022-05-12] MEDS: ACETAMINOPHEN 325 MG TABLET 650 MG PO ×4 (00:10→22:45)
[2022-05-12 04:23] VITALS: BP 104/63; PULSE 87; RESP 18; TEMP 36.8; O2SAT 98
[2022-05-12 05:04] LABS: Hematocrit 25.3 % (37.0-47.0); Hemoglobin 7.8 g/dL (12.0-15.0)
--- NOTE | 2022-05-12 05:53 | PM.OBPNVD ---
OB - PN: Subj Subjective Date/time seen: 05/12/22 05:53 Patient comments: no complaints and pain well controlled baby status: doing well OB - PN: Obj Data Labs CBC & Chem 7: 05/12/22 04:29 05/11/22 07:00 Labs: Laboratory Results - last 24 hr 05/11/22 05/11/22 05/11/22 07:00 07:00 07:00 WBC 8.3 RBC 3.99 L Hgb 9.6 L Hct 30.5 L MCV 76.4 L MCH 24.1 L MCHC 31.5 L RDW 17.2 H Plt Count 390 H MPV 10.1 Immature Gran % (Auto) 0.8 H Neut % (Auto) 68.9 Lymph % (Auto) 22.0 [place] % (Auto) 5.7 Eos % (Auto) 2.2 Baso % (Auto) 0.4 Lymph # (Auto) 1.82 [place] # (Auto) 0.5 Eos # (Auto) 0.2 Baso # (Auto) 0.0 Abs Immat Gran (auto) 0.07 H Absolute Neuts (auto) 5.7 Absolute Nucleated RBC 0.0 Nucleated RBC % 0.0 PT INR APTT Sodium 136 L Potassium 3.2 L Chloride 103 Carbon Dioxide 21 L Anion Gap 12 BUN 6 L Creatinine 0.40 L Estim Creat Clear Calc 179 Estimated GFR > 60 Glucose 78 Uric Acid 4.2 Calcium 9.3 Total Bilirubin 0.8 AST 18 ALT 10 Alkaline Phosphatase 173 H Total Protein 7.0 Albumin 3.7 Urine Opiates Screen Urine Methadone Screen Ur Barbiturates Screen Ur Phencyclidine Scrn Ur Amphetamine Screen U Benzodiazepines Scrn Urine Cocaine Screen U Cannabinoids Screen RPR Non-reactive Blood Type Antibody Screen Antibody Identification Antigen Identification HALEY, IgG Interpret HALEY, Poly Interpret HALEY, Complement Interp Enhanced Crossmatch 05/11/22 05/11/22 05/11/22 07:00 07:01 07:04 WBC RBC Hgb Hct MCV MCH MCHC RDW Plt Count MPV Immature Gran % (Auto) Neut % (Auto) Lymph % (Auto) [place] % (Auto) Eos % (Auto) Baso % (Auto) Lymph # (Auto) [place] # (Auto) Eos # (Auto) Baso # (Auto) Abs Immat Gran (auto) Absolute Neuts (auto) Absolute Nucleated RBC Nucleated RBC % PT 12.3 INR 1.0 APTT 25.7 Sodium Potassium Chloride Carbon Dioxide Anion Gap BUN Creatinine Estim Creat Clear Calc Estimated GFR Glucose Uric Acid Calcium Total Bilirubin AST ALT Alkaline Phosphatase Total Protein Albumin Urine Opiates Screen Negative Urine Methadone Screen Negative Ur Barbiturates Screen Negative Ur Phencyclidine Scrn Negative Ur Amphetamine Screen Negative U Benzodiazepines Scrn Negative Urine Cocaine Screen Negative U Cannabinoids Screen Positive A RPR Blood Type B Positive Antibody Screen Positive Antibody Identification Inconclusive Antigen Identification Cancelled HALEY, IgG Interpret Not Performed HALEY, Poly Interpret Negative HALEY, Complement Interp Not Performed Enhanced Crossmatch See Detail 05/12/22 04:29 WBC RBC Hgb 7.8 L Hct 25.3 L MCV MCH MCHC RDW Plt Count MPV Immature Gran % (Auto) Neut % (Auto) Lymph % (Auto) [place] % (Auto) Eos % (Auto) Baso % (Auto) Lymph # (Auto) [place] # (Auto) Eos # (Auto) Baso # (Auto) Abs Immat Gran (auto) Absolute Neuts (auto) Absolute Nucleated RBC Nucleated RBC % PT INR APTT Sodium Potassium Chloride Carbon Dioxide Anion Gap BUN Creatinine Estim Creat Clear Calc Estimated GFR Glucose Uric Acid Calcium Total Bilirubin AST ALT Alkaline Phosphatase Total Protein Albumin Urine Opiates Screen Urine Methadone Screen Ur Barbiturates Screen Ur Phencyclidine Scrn Ur Amphetamine Screen U Benzodiazepines Scrn Urine Cocaine Screen U Cannabinoids Screen RPR Blood Type Antibody Screen Antibody Identification Antigen Identification HALEY, IgG Interpret HALEY, Poly Interpret HALEY, Complement Interp Enhanced Crossmatch OB - PN A/P Plan day: 1 Plan: routine p
[2022-05-12 08:25] VITALS: BP 89/48; PULSE 80; RESP 16; TEMP 36.1; O2SAT 99
[2022-05-12] MEDS: POLYSACCHARIDE IRON COMPLEX 150 MG CAPSULE PO ×2 (09:38→16:41)
[2022-05-12] MEDS: DOCUSATE SODIUM 100 MG CAPSULE PO ×2 (09:38→16:41)
[2022-05-12] MEDS: ENOXAPARIN 40 MG/0.4 ML SYRINGE SUB-Q (09:38)
--- NOTE | 2022-05-12 10:08 | WPDANLDPN2 ---
Anes-Prog Note L&D Date/Time: 05/12/22 10:08 Neuro status: Neuro function grossly intact. Vital Signs: Last Vital Signs Temp 36.8 C 05/12/22 04:23 Pulse 87 05/12/22 04:23 Resp 18 05/12/22 04:23 BP 104/63 05/12/22 04:23 Pulse Ox 98 05/12/22 04:23 O2 Del Method Room Air 05/11/22 15:50 Pain score (VAS): 0 I/O: Intake & Output 05/11/22 05/12/22 05/12/22 23:59 07:59 15:59 Intake Total 780 1000 Output Total 2000 Balance 780 -1000 Patient feedback: Patient satisfied with anesthetic care.
[2022-05-12 10:50] VITALS: BP 94/53; PULSE 86; RESP 18; TEMP 36.4; O2SAT 100
[2022-05-12] MEDS: WITCH HAZEL 40 PADS 1 PAD (14:10)
[2022-05-12 16:48] VITALS: BP 104/57; PULSE 94; RESP 18; TEMP 36.5; O2SAT 98
[2022-05-13] MEDS: ACETAMINOPHEN 325 MG TABLET 650 MG PO (04:15)
[2022-05-13] MEDS: SIMETHICONE 80 MG TAB.CHEW PO ×2 (04:16→08:26)
--- NOTE | 2022-05-13 07:15 | PM.OBPNVD ---
OB - PN: Subj Subjective Date/time seen: 05/13/22 07:15 Patient comments: no complaints and pain well controlled baby status: doing well OB - PN: Obj Data Labs CBC & Chem 7: 05/12/22 04:29 05/11/22 07:00 OB - PN A/P Plan day: 2 Plan: routine care, discharge home and follow up 6 weeks (4) Time Spent With Patient Time: Total time spent is greater than 50% in coordination of care (as documented) at patient's floor/unit and/or counseling patient: Time with patient: less than 15 minutes
[2022-05-13 07:35] VITALS: BP 104/64; PULSE 74; RESP 17; TEMP 36.1; O2SAT 100
[2022-05-13] MEDS: WITCH HAZEL 40 PADS 1 PAD TOPICAL (08:25)
[2022-05-13] MEDS: ENOXAPARIN 40 MG/0.4 ML SYRINGE SUB-Q (08:26)
[2022-05-13] MEDS: DOCUSATE SODIUM 100 MG CAPSULE PO (08:26)
[2022-05-13] MEDS: BENZOCAINE 20% AER SPR (*SP) 56 GM CAN 1 SPRAY TOPICAL (08:26)
[2022-05-13] MEDS: POLYSACCHARIDE IRON COMPLEX 150 MG CAPSULE PO (08:26)
--- NOTE | 2022-05-13 11:30 | PC.NURSE ---
Patient viewed the discharge video Mother & Baby Care, The First Two Weeks . Patient was given the opportunity and encouraged to ask questions. Patient verbalized understanding of information shared and has been given the mother/baby guide for home reference.
[2022-05-13] MEDS: TETANUS,DIPHTHERIA,AC PERTUSSIS ADULT (0.5 ML) BOOSTRIX IM (12:17)
--- NOTE | 2022-05-16 07:41 | PM.DS ---
DS: Admitting Diagnosis Discharge Date 05/13/22 Admitting Diagnosis Term IUP DS: Discharge Diagnosis Discharge Diagnosis (1) Term : Code(s): Z34.90 - Encounter for supervision of normal , unspecified, unspecified trimester Status: Acute (2) History of pulmonary embolism: Code(s): Z86.711 - Personal history of pulmonary embolism Status: Acute DS: Summary Hospital Course Reason for hospitalization: induction of labor at term with a history of Leiden deficiency Hospital Course: 22-year-old multiparous patient was admitted for induction of labor at 30 weeks gestation secondary to Leiden deficiency. She was transition from Lovenox to heparin prior to admission. She underwent spontaneous vaginal delivery and was unremarkable. Her postop course was unremarkable. She remained afebrile. She was up, voiding without difficulty, ambulating, generally without complaints. Time Spent with Patient Time attestation: Total time spent providing and/or coordinating discharge services: Discharge Plan Discharge Attending physician on discharge: Tino Gomez Discharging Clinician: Tino Gomez Patient Disposition: Home, Self-Care Activity: may shower, no straining and pelvic rest Diet: heart healthy Wound Care Instructions: follow printed instructions Discharge Instructions: Education: Mom and Baby Guide Given to: Mother Follow-Up: Call your delivering provider's office for an appointment to be seen in: 4 Weeks Mom and baby should come to the [facility] for the follow-up appointment. Appointment Date/Time: May 16, 2022 at 11:00 am What to expect at your follow-up visit: Blood Pressure Check Physical Assessment Call [phone] if you are unable to keep your appointment time. BREAST CARE: * Wear a snug supportive bra. * For engorgement discomfort: Breast Feeding: * Apply warm moist washcloths * Express milk as needed to relieve engorgement * Wear loose clothing Bottle Feeding: * May apply ice packs * For sore nipples: * Identify correct latch-on * Apply warm moist washcloths before and after nursing * Air dry nipples after nursing * May apply Lansinoh cream to nipples EPISIOTOMY/PERINEAL CARE: * Until bleeding stops, use your michael bottle after urinating * Change your pad frequently throughout the day * You may take sitz baths several times a day (fill your bathtub with warm water and soak for 20 minutes.) Do NOT bathe in the water * No tub baths until seen by your physician - You may shower ACTIVITY: * Rest as much as possible. * Do not exercise or lift anything heavier than your baby (such as laundry or other children.) * Avoid stairs or driving as much as possible. * Do not put anything into the vagina. No douching, tampons, or sexual activity until seen by physician. NOTIFY PHYSICIAN IF YOU HAVE ANY QUESTIONS OR IF ANY OF THE FOLLOWING SYMPTOMS OCCUR: * If your episiotomy or incision becomes red, swollen, or more painful than what you have experienced in the hospital. * If your vaginal bleeding becomes foul smelling. * If your vaginal bleeding becomes more heavy than a period or if your bleeding changes from pink to bright red. However, you may pass an occasional walnut-sized clot once or twice for the first week . * If you experience a sharp, shooting pain in you calves. * If you discover a hard, reddened area on your breast or if you experience flu-like symptoms. DIET: * Eat regular, well-balanced meals. * Drink plenty of fluids daily. If , drink to thirst. Patient Instructions: Antibiotic Form, Vaginal Delivery (DC) Stand Alone Forms: General Discharge Information Follow-up/Referrals: Tino Gomez MD [Physician] - Discharge Medications: New enoxaparin [Lovenox] 40 mg/0.4 mL syringe 40 mg subcut DA
[2022-05-16 11:35] VITALS: BP 102/70; PULSE 89; RESP 20; TEMP 37; O2SAT 98
== END 2022-05-13 12:25 | disposition home or self-care (01) | DRG 806 ==
LOC: ANHLDR 06:36 → ANHOB2 16:23
PROVIDERS: Admitting Provider Obstetrics & Gynecology; PCP Family Medicine; Visit Provider Obstetrics & Gynecology
DX: O99.12 Other diseases of the blood and blood-forming organs and certain disorders involving the immune mechanism complicating childbirth (principal); D68.51 Activated protein C resistance; Z37.0 Single live birth; Z3A.37 37 weeks gestation of pregnancy; O36.8330 Maternal care for abnormalities of the fetal heart rate or rhythm, third trimester, not applicable or unspecified; O70.0 First degree perineal laceration during delivery; O69.81X0 Labor and delivery complicated by cord around neck, without compression, not applicable or unspecified
CPT/HCPCS: 36415; 80053; 80307; 84550; 85014; 85018; 85025; 85610; 85730; 86592; 86850; 86880; 86900; 86901; 86902; 86922; 90715; A9270; J1650; J2405; J2590; J2795; J7120

== ENCOUNTER 2022-06-22 00:44 | Day surgery (SDC) | payer OTHER, SELFPAY ==
[2022-06-13 16:45] VITALS: BMI 23.9
--- NOTE | 2022-06-13 16:58 | PC.NURSE ---
Report to the Outpatient Waiting Room, entrance under the green pavilion located off [facility], at time 0600 on date 06/22/22. OR Time: 0730. Time changes happen often and if your time is changed the preop area will call you the afternoon before. - You and your visitor will be asked to self-screen and do not enter if you have any COVID symptoms. - We encourage only one visitor and NO visitors under age 16 are allowed at this time. Your visitor will receive communication by the phone number that is given day of service. - The patient visitor is requested to social distance or may leave the building when not with patient due to restrictions. - A mask is required within the hospital. Patients may have clear liquids (water, carbonated beverages, clear teas, apple juice) until 3 hours prior to surgery with a maximum of 20 ounces 0430. - No food from midnight until time of surgery - Infants may have breast milk until 4 hours before surgery, formula 6 hours prior to surgery. - Children will be allowed to drink immediately following surgery. If applicable, please bring a bottle or sippy cup to assist with drinking. Juice, water, soda, and popsicles are readily available. For infants on formula, please bring formula the day of surgery. Pacifiers are allowed. Take the following medications with a SIP of water the morning of surgery: N/A Medications to discontinue per physician Patient to check with Dr. Demarcus Obando regarding lovenox and when to stop prior to surgery Date to take last dose Please no make-up, nail armenian, hairspray, perfume, deodorant, or body powder the day of surgery. No jewelry (including any body piercings) or valuables the day of surgery, leave them at home. Please take a shower or bath the night before, or the morning of, surgery with an antibacterial soap. Wear comfortable, loose fitting clothing. Children are encouraged to wear pajamas. - Jewelry must be removed prior to entering the operating room. Rings and piercings that are not removed may be cut off. - The hospital will not accept responsibility for valuables. - Please leave all valuables, including medications, at home the day of surgery. If you are going home after surgery, a licensed car driver must drive you home. - NO public transportation without another adult. - We recommend that an adult stay with you for 24 hours following discharge. - We also recommend that you do not drive, make important decision, drink alcoholic beverages, or take any drugs that were not prescribed by your health care provider for at least 24 hours after your discharge time. For Pediatric surgeries, we recommend two adults accompany the child home. Follow any additional instructions given to you from your surgeon. If you or anyone in your household have experienced Covid symptoms in the past week, please notify your surgeon or the nurse liaison at the phone number below for possible testing. Telephone instructions given to Augusta Michaud and asked if any additional questions and then verbalized understanding. Patient advised to call surgeon office or pre surgery nurse liaison [phone] if any additional questions.
--- NOTE | 2022-06-19 07:42 | PM.IMHP ---
H&P: HPI History of Present Illness Date/Time: 06/19/22 07:42 Chief Complaint: Desires permanent sterilization Narrative: A 22-year-old 4 para 3 who desires permanent and irreversible sterilization. She was offered alternatives including but not exclusive of pills, patches injections, long-acting reproductive contraception, etc.. She understands this to be permanent and irreversible. She has signed the [facility] consent for tubal ligation. Risks and benefits reviewed including not exclusive of , aspiration pneumonia, bleeding, transfusion, perforation injury to bowel, bladder, ureters, or other internal organs the need for open laparotomy. She received the ACOG handout entitled sterilization for men and women. She had all questions answered. She asked to proceed PMFSH Past Medical History Medical History Anxiety Factor V Leiden History of pulmonary embolism Migraine Pancreatitis Surgical History Surgical History History of cholecystectomy History of tonsillectomy Family History Family History Father Diabetes mellitus Patient's father is in good health Grandparent Diabetes mellitus Hypertension Mother Patient's mother is in good health Sibling Patient's sister is in good health Social History Social History Smoking status: Never smoker Second hand tobacco smoke exposure: No Alcohol intake: never Substance use: current Substance use type: marijuana Other substance usage details: smokes marijuana every other day Living arrangements: with family Gender identity (if verbalized by the patient): Female Sexual Orientation (if Verbalized by the Patient): Straight or Heterosexual Spiritual care concerns: No Meds Home Medications and Allergies Home Medications Medication Instructions Recorded Confirmed Type enoxaparin 40 mg/0.4 mL 40 mg (0.4 mL) subcut DAILY #30 mL 05/13/22 06/13/22 Rx subcutaneous syringe (Lovenox) Allergies Allergy/AdvReac Type Severity Reaction Status Date / Time diphenhydramine Allergy Severe Anaphylactic Verified 06/13/22 16:43 [From Benadryl] Shock ketorolac Allergy Severe Anaphylactic Verified 06/13/22 16:43 Shock morphine AdvReac Hallucinati Verified 06/13/22 16:43 ng Exam Const: General: cooperative, healthy appearing, comfortable and obese Orientation/consciousness: oriented to person, oriented to place and oriented to time HENMT: Head: normal to inspection Resp: Effort & Inspection: normal respiratory effort Cardio: Rate: regular rate Rhythm: regular rhythm Heart sounds: S1 normal heart sound present and S2 normal heart sound present GI: Inspection: normal to inspection and obesity : External Female Exam: normal external appearance Speculum Exam - Vagina: normal appearance of the vagina Speculum Exam - Cervix: normal appearance of the cervix Bimanual exam- vagina & uterus: uterine size normal Bimanual Exam- Adnexa, other: normal adnexae Assessment and Plan Assessment and plan (1) Sterilization: Code(s): Z30.2 - Encounter for sterilization Status: Acute (2) Factor V Leiden: Code(s): D68.51 - Activated protein C resistance Status: Acute Plan Laparoscopic bilateral tubal ligation via silastic rings
--- NOTE | 2022-06-21 10:26 | P.PNAN_ITS ---
Anes - Initial Pre Proc Eval Procedure: Operation Date: 06/22/22 07:30 Proposed Procedures p Laparoscopic Bilateral Tubal Ligation with Fallopian Rings - Tino Obando MD Date/Time: 06/21/22 10:26 Surgeon: Tino Obando MD Pre Op Diagnosis: desires sterilization Patient Data Age: 22 Gender: F Height: 1.68 m Weight: 67.2 kg Allergies Allergy/AdvReac Type Severity Reaction Status Date / Time diphenhydramine Allergy Severe Anaphylactic Verified 06/22/22 07:06 [From Benadryl] Shock ketorolac Allergy Severe Anaphylactic Verified 06/22/22 07:06 Shock morphine AdvReac Hallucinati Verified 06/22/22 07:06 ng Home Medications Medication Instructions Recorded Confirmed Type enoxaparin 40 mg/0.4 mL 40 mg (0.4 mL) subcut DAILY #30 mL 05/13/22 06/13/22 Rx subcutaneous syringe (Lovenox) hydrocodone 5 mg-acetaminophen 325 1 tablet PO Q4H PRN pain #20 tabs 06/22/22 Rx mg tablet sertraline 50 mg tablet 50 mg PO DAILY 06/22/22 06/22/22 History Patient hx anesthesia problems: none Family hx anesthesia problems: none Results Review: All pre-operative results and documents have been reviewed as part of the pre- operative evaluation. FORMERLY [facility] Past Medical History Medical History (Updated 06/21/22 @ 10:27 by Getachew Jorge DO) Anxiety Asthma exercise induced Factor V Leiden History of pulmonary embolism after first Migraine Pancreatitis PTSD (post-traumatic stress disorder) Surgical History Surgical History History of cholecystectomy History of tonsillectomy Family History Family History Father Diabetes mellitus Patient's father is in good health Grandparent Diabetes mellitus Hypertension Mother Patient's mother is in good health Sibling Patient's sister is in good health Social History Social History Smoking status: Never smoker Second hand tobacco smoke exposure: No Alcohol intake: never Substance use: current Substance use type: marijuana Other substance usage details: smokes marijuana every other day Living arrangements: with family Gender identity (if verbalized by the patient): Female Sexual Orientation (if Verbalized by the Patient): Straight or Heterosexual Spiritual care concerns: No Anes - Eval Final PreProcedure Day of Procedure 06/21/22 10:26 Patient weight: normal Heart: regular rate and rhythm Lungs: clear to auscultation Airway: Mallampati scale class II Neurological: alert and oriented Last oral intake: >/= 8 hours ASA classification: III Emergent: no Anesthetic plan: proceed Anesthesia type and monitoring: general ETT and standard monitoring Results Review: All pre-operative results and documents have been reviewed as part of the pre- operative evaluation. Informed Consent: The patient's anesthetic plan and its attendant risks and benefits were discussed with the patient/family/POA. Questions were solicited and answers provided to the satisfaction of the patient/family/POA.
[2022-06-22] VITALS (12 sets, daily range): BP systolic 116–131; BP diastolic 66–90; PULSE 71–96; RESP 12–20; TEMP 36.2–36.5; O2SAT 97–100
--- NOTE | 2022-06-22 06:46 | WPDHPUPDATE1 ---
History and Physical Update Update Date/Time: 06/22/22 06:46 History and Physical has been reviewed, including an updated exam of the patient. There are NO changes in the patient's condition. Risks, benefits, and alternatives have been discussed and questions answered. Patient agrees to proceed with procedure.
[2022-06-22] MEDS: ACETAMINOPHEN 500 MG TABLET 1000 MG PO (07:38)
[2022-06-22 07:54] LABS: Hematocrit 31.5 % (37.0-47.0); Hemoglobin 9.5 g/dL (12.0-15.0)
[2022-06-22] MEDS: LACTATED RINGERS 1,000 ML 30 ML IV CONT ×2 (07:56→09:13)
--- NOTE | 2022-06-22 08:49 | W.PM.PROC2 ---
Procedure Note - Detailed Date of Procedure 06/22/22 Pre-op Diagnosis desires sterilization Post-op Diagnosis Same Procedure Performed Laparoscopic bilateral tubal ligation via silastic rings Surgeon Tino Obando MD Anesthesia General Indications cis 22-year-old female who desires permanent irreversible sterilization Findings normal-appearing ovaries tubes and uterus. Normal-appearing appendix and gallbladder and liver edge Description of Procedure patient was prepped draped in normal sterile fashion placed in the dorsal lithotomy position. Under excellent general endotracheal anesthesia weighted speculum placed in posterior fornix vagina. Anterior lip of the cervix grasped with a single-tooth tenaculum. Sethi's cannula inserted the cervix attached to the single-tooth. These will be used later for uterine manipulation. Bladder was drained of clear urine. The weighted speculum was removed and gloves were changed. An infraumbilical incision made the Veress needle passed in the abdomen. Abdomen filled with CO2 gas to 15mm Hg. The 5mm trocar advanced under direct visualization with the Optiview. No injury seen. The patient placed in Trendelenburg. A suprapubic incision made the 8mm trocar advanced under direct visualization assuring no injury. The above findings were seen in photo documentation undertaken. The right fallopian tube was grasped at its midportion a good knuckle of tube formed with the fallopian tube band. This was repeated on the contralateral tube with excellent blanching. The remainder of the pelvis appeared within normal limits and photo documentation undertaken. The lower site removed. The gas removed from the abdomen. The upper site removed. The incisions closed with 4-0 Monocryl glue. The instruments removed from the vagina. The patient went to recovery in satisfactory condition. All sponge, needle, instrument counts were correct. There were no immediate complications noted Estimated Blood Loss 5 Drains No Packing No Pathology None sent Complications No immediate complications Condition Stable Disposition PACU
[2022-06-22] MEDS: ONDANSETRON INJ 4 MG/2 ML VIAL IV PUSH (09:07)
[2022-06-22] MEDS: fentaNYL CITRATE INJ (*CRX) 100 MCG/2 ML VIAL 25 MCG IV PUSH ×4 (09:12→09:44)
[2022-06-22] MEDS: oxyCODONE HCL (*CRX) 5 MG TAB IR PO (10:40)
== END 2022-06-22 12:20 | disposition home or self-care (01) ==
PROVIDERS: Anesthesiology; Visit Provider Obstetrics & Gynecology
PROC: (CPT 58671; principal; 2022-06-22 07:30)
DX: Z30.2 Encounter for sterilization (principal); D68.51 Activated protein C resistance; F41.9 Anxiety disorder, unspecified; F43.10 Post-traumatic stress disorder, unspecified; Z86.711 Personal history of pulmonary embolism; F12.90 Cannabis use, unspecified, uncomplicated
CPT/HCPCS: 58671; 36415; 85014; 85018; A4264; A9270; J0330; J1100; J2250; J2405; J2704; J3010; J7120

== ENCOUNTER 2023-07-15 12:24 | Outpatient (CLI) | payer OTHER, SELFPAY ==
--- NOTE | ~2023-07-15 | XR_ITS ---
Cervical Spine: AP, lateral, open-mouth views Clinical History: Pain Findings: There is straightening of the normal cervical lordosis. There is minimal grade 1 anterolist hesis of C2 over C3, and of C3 over C4. The intervertebral disc spaces are well maintained. Pre-verte bral soft tissues are unremarkable. Impression: Minimal grade 1 anterolisthesis of C2 over C3, and of C3 over C4. Reviewed, dictated and finalized at location M. EXPEDITOR Impression: Minimal grade 1 anterolisthesis of C2 over C3, and of C3 over C4.
--- NOTE | ~2023-07-15 | XR_ITS ---
Lumbosacral Spine: AP and lateral views Clinical History: Pain Findings: The normal lordotic curve is maintained. The vertebral bodies and posterior elements are i ntact. The intervertebral disc spaces are preserved. The sacroiliac joints are normally outlined. Impression: No significant abnormality. Reviewed, dictated and finalized at [facility]. OR IN CHIEF Impression: No significant abnormality.
--- NOTE | ~2023-07-15 | XR_ITS ---
Thoracic spine: Clinical Indication: Back pain AP and lateral views were performed. No fracture is seen. There is normal alignment of the vertebrae. The intervertebral disc spaces appe ar normal. Paravertebral soft tissues appear normal. Impression: No significant abnormalities noted. Reviewed, dictated and finalized at [facility]. R/[employer]ES Impression: No significant abnormalities noted.
== END 2023-07-15 12:25 | disposition home or self-care (01) ==
PROVIDERS: PCP Physician Assistant; Visit Provider Physician Assistant
DX: M54.2 Cervicalgia (principal); M54.6 Pain in thoracic spine; M54.50 Low back pain, unspecified
CPT/HCPCS: 72050; 72072; 72100

== ENCOUNTER 2023-10-22 05:01 | Emergency (ER) | payer OTHER, SELFPAY ==
[2023-10-22] VITALS (24 sets, daily range): BP systolic 92–136; BP diastolic 57–109; PULSE 66–107; RESP 10–24; TEMP 36.1–36.6; O2SAT 98–100
--- NOTE | ~2023-10-22 | CT_ITS ---
Clinical Indication: Chest pain CT Scan of the Chest with Contrast: Technique: Contiguous sections were acquired throughout the chest after intravenous administration of 100 cc of Omnipaque 350. Dose reduction technique was used on this scan by utilizing automated expos ure control and iterative reconstruction technique. The dose-length product (DLP) was 502.79 mGy-cm. COMPARISON: 09/02/2020 Findings: There is no evidence of any significant mediastinal, hilar or axillary lymphadenopathy. There is no f illing defect in the pulmonary arterial tree to suggest pulmonary embolus. There is no evidence of ao rtic dissection or aneurysm. There is no evidence of pleural or pericardial effusion. The lungs are clear. No pulmonary nodules or infiltrates are noted. Images through the upper abdomen reveal no abnormalities. Impression: No evidence of pulmonary embolus, aortic dissection, or aortic aneurysm. Clear lungs. Reviewed, dictated and finalized at [facility]. 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 Clear lungs.
--- NOTE | 2023-10-22 05:03 | ECG_ITS ---
Measurements Intervals [place] Rate: 115 P: 58 MS: 120 QRS: 80 QRSD: 88 T: 26 QT: 292 QTc: 405 Interpretive Statements SINUS TACHYCARDIA INCOMPLETE RIGHT BUNDLE BRANCH BLOCK NONSPECIFIC ST & T-WAVE ABNORMALITY COMPARED TO ECG 02/07/2022 11:46:11 NO SIGNIFICANT CHANGES Electronically Signed On 10-22-2023 15:25:52 TOOLS DEVELOPER by González Turcios M.D.
[2023-10-22 05:41] LABS: Basophils Percent Auto 0.5 % (0.2-1.2); Eosinophils Absolute Auto 0.2 K/mm3 (0-0.3); Eosinophils Percent Auto 3.1 % (0-4.4); Hematocrit 43.1 % (37.0-47.0); Immature Granulocyte Absolute 0.02 K/mm3 (0.00-0.031); Immature Granulocyte Percent A 0.3 % (0-0.5); Lymphocytes Absolute Auto 1.94 K/mm3 (0.9-3.2); Lymphocytes Percent Auto 29.8 % (18.3-44.2); Mean Corpuscular HGB Conc 32.5 g/dl (32-36); Mean Corpuscular Hemoglobin 28.6 pg (26-34); Mean Platelet Volume 11.5 fl (7.4-10.4); Monocytes Absolute Auto 0.3 K/mm3 (0.1-0.6); Monocytes Percent Auto 5.1 % (2.6-8.5); Neutrophils Percent Auto 61.2 % (45.5-73.1); Platelet Count Result 314 k/mm3 (150-375); Red Cell Distribution Width 13.9 % (11.5-14.5); White Blood Count 6.5 K/mm3 (4.5-10.0)
[2023-10-22 05:55] LABS: Alanine Aminotransferase 18 U/L (6-35); Albumin Level 4.5 g/dL (3.5-5.1); Alkaline Phosphatase 79 U/L (38-126); Anion Gap 10 mmol/L (8-16); Aspartate Amino Transferase 24 U/L (14-36); Bilirubin,Total 0.6 mg/dL (0.2-1.3); Blood Urea Nitrogen 11 mg/dL (7-17); Calcium 9.4 mg/dL (8.4-10.2); Carbon Dioxide 23 mmol/L (22-30); Chloride 105 mmol/L (98-107); Estimated CRCL calculation 132 ml/min; Estimated Glomerular Filt Rate > 60; Glucose 107 mg/dL (65-110); Lipase 111 U/L (23-300); Potassium 3.6 mmol/L (3.4-5.0); Sodium 138 mmol/L (137-145)
[2023-10-22 06:06] LABS: INR 0.9; Prothrombin Time 12.9 Seconds (11.1-14.7)
[2023-10-22 06:07] LABS: Partial Thromboplastin Time 28.5 SECONDS (22.3-36.8); Troponin I < 0.012 ng/mL (0.000-0.034)
--- NOTE | 2023-10-22 07:17 | ECG_ITS ---
Measurements Intervals [place] Rate: 80 P: 39 AL: 147 QRS: 77 QRSD: 98 T: 60 QT: 402 QTc: 466 Interpretive Statements SINUS RHYTHM WITH OCCASIONAL SUPRAVENTRICULAR PREMATURE COMPLEXES INCOMPLETE RIGHT BUNDLE BRANCH BLOCK COMPARED TO ECG 10/22/2023 05:11:36 SINUS RHYTHM NOW PRESENT Electronically Signed On 10-22-2023 15:35:25 COLLEGE ARCHIVIST by González Turcios M.D.
--- NOTE | 2023-10-22 08:30 | ED.CHESTPAIN ---
HPI - Chest Pain General Chief Complaint: Chest Pain Stated Complaint: chest pain Time Seen by Provider: 10/22/23 06:56 Source: patient Mode of arrival: ambulatory Limitations: no limitations History of Present Illness HPI narrative: 23-year-old with a history of factor 5 Leiden deficiency, PE presents to the ER with complaints of left-sided chest pain associated with some nausea and vomiting. She denies any shortness of breath. No history of cough fever chills. Patient states that she woke up with a pain in the middle of the night. No previous history of CAD. Patient stated the pain was sharp shooting in nature complaint: chest pain Pertinent past history: other (PE) Onset (ago): hour(s) (2) Timing of current episode: constant Onset: during rest Pain location: left chest Pain radiation: none Severity: moderate Quality: shooting Relieving factors: nothing Exacerbating factors: nothing Associated symptoms: nausea and vomiting Treatment prior to arrival: none Risk Factors Coronary artery disease risk factors: none Pulmonary embolism risk factors: clotting disorder Related Data On Oral Contraceptives: No Home Medications Medication Instructions Recorded Confirmed sertraline 50 mg tablet 50 mg PO DAILY 06/22/22 06/22/22 Allergies Allergy/AdvReac Type Severity Reaction Status Date / Time diphenhydramine Allergy Severe Anaphylactic Verified 06/22/22 07:06 [From Benadryl] Shock ketorolac Allergy Severe Anaphylactic Verified 06/22/22 07:06 Shock morphine AdvReac Hallucinati Verified 06/22/22 07:06 ng Review of Systems Review of Systems: All systems reviewed & are unremarkable except as noted in HPI and below Constitutional: Constitutional: Reports no additional constitutional complaints Eyes: Eyes: Reports no additional eye complaints ENT: Reports system reviewed and no additional complaints, except as documented Cardiovascular: Cardiovascular: Reports as per HPI Respiratory: Respiratory: Reports no additional respiratory complaints Gastrointestinal: Gastrointestinal: Reports as per HPI Musculoskeletal: Musculoskeletal: Reports no additional musculoskeletal complaints Integumentary/Breasts: Skin/Breast: Reports system reviewed and no additional complaints, except as docu Neurologic: Reports system reviewed and no additional complaints, except as documented PMFSH Past Medical History Medical History Anxiety Asthma exercise induced Factor V Leiden History of pulmonary embolism after first Migraine Pancreatitis PTSD (post-traumatic stress disorder) Surgical History Surgical History History of cholecystectomy History of tonsillectomy Family History Family History Father Diabetes mellitus Patient's father is in good health Grandparent Diabetes mellitus Hypertension Mother Patient's mother is in good health Sibling Patient's sister is in good health Social History Social History Smoking status: Never smoker Second hand tobacco smoke exposure: No Alcohol intake: never Substance use: current Substance use type: marijuana Other substance usage details: smokes marijuana every other day Living arrangements: with family Gender identity (if verbalized by the patient): Female Sexual Orientation (if Verbalized by the Patient): Straight or Heterosexual Spiritual care concerns: No Exam Narrative: GENERAL: Well-appearing, well-nourished, and in no acute distress. HEAD: Normocephalic, atraumatic. EYES: PERRLA and EOMI. ENT: Nares clear, no rhinorrhea or epistaxis. NECK: Supple. CHEST: Clear to auscultation. No respiratory distress. HEART: Regular rate and rhythm. No murmur heard. Normal peripheral pulses. ABDOMEN: Soft, nont
[2023-10-22 08:51] LABS: Troponin I < 0.012 ng/mL (0.000-0.034)
== END 2023-10-22 08:46 | disposition home or self-care (01) ==
PROVIDERS: Emergency Medicine; Emergency Provider Family Medicine; PCP Physician Assistant
DX: R07.9 Chest pain, unspecified (principal)
CPT/HCPCS: 36415; 71275; 80053; 83690; 84484; 85025; 85610; 85730; 93005; 99284; Q9967

== ENCOUNTER 2024-06-22 12:47 | Emergency (ER) | payer SELFPAY ==
[2024-06-22 12:54] VITALS: BP 116/85; PULSE 100; RESP 16; TEMP 36.6; O2SAT 98
--- NOTE | 2024-06-22 13:08 | ED.FEMALEGU ---
HPI - Female Genitourinary General Chief complaint: Urogenital-Female Stated complaint: Vaginal Pain Time Seen by Provider: 06/22/24 13:08 Source: patient Mode of arrival: ambulatory Limitations: no limitations History of Present Illness HPI Narrative: 24 yo F presents with ulcer to vaginal area for approx. 10 days. Pt states she first thought her underwear was rubbing and causing her to chaf. Has been wearing more comfortable clothing and continues to have soreness. Same sexual partner. No conern for STI. All systems reviewed and negative except as noted above. Related Data Allergies Allergy/AdvReac Type Severity Reaction Status Date / Time diphenhydramine Allergy Severe Anaphylactic Verified 06/22/24 12:58 [From Benadryl] Shock ketorolac Allergy Severe Anaphylactic Verified 06/22/24 12:58 Shock morphine AdvReac Hallucinati Verified 06/22/24 12:58 ng Review of Systems Review of Systems: CONSTITUTIONAL: Denies fever, chills, or sweats. EYES: Denies visual changes, redness, or discharge. ENT: Denies rhinorrhea, congestion, sore throat, or otalgia. CARDIOVASCULAR: Denies chest pain, palpitations, or edema. RESPIRATORY: Denies cough or dyspnea. GASTROINTESTINAL: Denies abdominal pain, nausea, vomiting, or diarrhea. GENITOURINARY: Denies dysuria or hematuria. reports ulcers to L labia area SKIN: Denies rash or itching. MUSCULOSKELETAL: Denies back pain, joint pain, or myalgia. NEUROLOGIC: Denies headache, numbness, or weakness. PSYCHIATRIC: Denies anxiety or depression. All other systems reviewed are negative, except as documented in HPI. FORMERLY [facility] Past Medical History Medical History Anxiety Asthma exercise induced Factor V Leiden History of pulmonary embolism after first Migraine Pancreatitis PTSD (post-traumatic stress disorder) Surgical History Surgical History History of cholecystectomy History of tonsillectomy Family History Family History Father Diabetes mellitus Patient's father is in good health Grandparent Diabetes mellitus Hypertension Mother Patient's mother is in good health Sibling Patient's sister is in good health Social History Social History Smoking status: Never smoker Second hand tobacco smoke exposure: No Alcohol intake: never Substance use: current Substance use type: marijuana Other substance usage details: smokes marijuana every other day Living arrangements: with family Gender identity (if verbalized by the patient): Female Sexual Orientation (if Verbalized by the Patient): Straight or Heterosexual Spiritual care concerns: No Comments At time of signature, agree with nursing past medical, surgical, social and family history. There is no relevant family history pertinent to the presenting complaint. Exam Narrative: GENERAL: This is a well-nourished, well-developed patient, in no apparent distress. HEAD: normocephalic, atraumatic. EYES: PERRL. Sclera clear/white. Vision is grossly intact. EARS: External ears normal NOSE: External nose normal NECK: Neck supple, non-tender without lymphadenopathy, masses or thyromegaly. CARDIOVASCULAR: Regular rate and rhythm without murmurs, gallops, or rubs. RESPIRATORY: Clear to auscultation. Breath sounds equal bilaterally. No wheezes, rales, or rhonchi. SKIN: warm, Dry, intact with no suspicious lesions or rash, good texture and turgor. NEURO: awake, alert, and oriented to person, place and time. There were no obvious focal neurologic abnormalities. EXTREMITIES: No joint tenderness, effusion, or edema noted. GENITOURINARY: erythematous vesicles to L labia, herpes culture obtained. : Female genitals images: 1. 2 to 3 erythematous vesicles Course Course Le
== END 2024-06-22 13:28 | disposition home or self-care (01) ==
PROVIDERS: Emergency Provider Nurse Practitioner Family
DX: N89.8 Other specified noninflammatory disorders of vagina (principal); J45.990 Exercise induced bronchospasm; D68.51 Activated protein C resistance; Z86.711 Personal history of pulmonary embolism; F12.90 Cannabis use, unspecified, uncomplicated
CPT/HCPCS: 87255; 99213; G0463

== ENCOUNTER 2024-06-24 08:05 | Emergency (ER) | payer MEDICAID, SELFPAY ==
[2024-06-24] VITALS (12 sets, daily range): BP systolic 103–107; BP diastolic 61–81; PULSE 65–91; RESP 12–17; TEMP 36.6; O2SAT 97–100
--- NOTE | ~2024-06-24 | CT_ITS ---
EXAMINATION: CTA chest PE protocol DATE: 06/24/2024 09:32 INDICATION: Chest pain. Shortness of breath. TECHNIQUE: Computed tomography angiography (CTA) of the chest was performed with 100 mL Omnipaque-350 intravenous contrast timed to evaluate the pulmonary arteries. Coronal maximum intensity projection 3D-reconstructions were created by the technologist. Automated exposure control and iterative reconst ruction technique were employed. The dose-length product was 358.99 mGy-cm. COMPARISON: Chest CT 10/22/2023 FINDINGS: The lungs demonstrate minimal atelectasis. No pleural effusion. The heart size is normal. N o pericardial effusion. There is no pulmonary embolus. There are changes of cholecystectomy. There is thoracic dextrocurvature. IMPRESSION: 1. No pulmonary embolus. Reviewed, dictated and finalized at location A. IMPRESSION: 1. No pulmonary embolus.
--- NOTE | 2024-06-24 08:11 | ECG_ITS ---
Test Date: 2024-06-24 08:15:32 Measurements Intervals [place] Rate: 83 P: 23 DC: 135 QRS: 50 QRSD: 86 T: 36 QT: 355 QTc: 419 Interpretive Statements SINUS RHYTHM NORMAL ECG No previous ECG available for comparison Electronically Signed On 06-24-2024 10:23:58 CDT by Ian Andres M.D.
[2024-06-24 08:26] LABS: Basophils Percent Auto 0.2 % (0.2-1.2); Eosinophils Absolute Auto 0.2 K/mm3 (0-0.3); Eosinophils Percent Auto 1.9 % (0-4.4); Hemoglobin 13.5 g/dL (12.0-15.0); Immature Granulocyte Absolute 0.03 K/mm3 (0.00-0.031); Immature Granulocyte Percent A 0.3 % (0-0.5); Lymphocytes Absolute Auto 1.27 K/mm3 (0.9-3.2); Mean Corpuscular HGB Conc 32.9 g/dl (32-36); Mean Corpuscular Hemoglobin 29.4 pg (26-34); Mean Corpuscular Volume 89.3 fl (80-100); Mean Platelet Volume 10.6 fl (7.4-10.4); Monocytes Absolute Auto 0.5 K/mm3 (0.1-0.6); Monocytes Percent Auto 5.4 % (2.6-8.5); Neutrophils Absolute Auto 7.8 K/mm3 (1.3-6.7); Neutrophils Percent Auto 79.2 % (45.5-73.1); Platelet Count Result 317 k/mm3 (150-375); Red Blood Count 4.59 M/mm3 (4.2-5.4); Red Cell Distribution Width 12.9 % (11.5-14.5); White Blood Count 9.8 K/mm3 (4.5-10.0)
[2024-06-24 08:35] LABS: INR 0.9
[2024-06-24 08:36] LABS: Alanine Aminotransferase 15 U/L (6-35); Albumin Level 4.3 g/dL (3.5-5.1); Alkaline Phosphatase 72 U/L (38-126); Anion Gap 7 mmol/L (4-12); Aspartate Amino Transferase 27 U/L (14-36); Bilirubin,Total 0.4 mg/dL (0.2-1.3); Blood Urea Nitrogen 13 mg/dL (7-17); Calcium 8.9 mg/dL (8.4-10.2); Carbon Dioxide 27 mmol/L (22-30); Chloride 104 mmol/L (98-107); Estimated CRCL calculation 125 ml/min; Estimated Glomerular Filt Rate > 60; Glucose 86 mg/dL (65-110); Lipase 76 U/L (23-300); Partial Thromboplastin Time 26.4 Seconds (22.3-36.8); Sodium 138 mmol/L (137-145)
[2024-06-24] MEDS: ACETAMINOPHEN 500 MG TABLET 1000 MG PO (08:41)
[2024-06-24] MEDS: fentaNYL CITRATE INJ (*CRX) 100 MCG/2 ML VIAL 50 MCG IV PUSH (08:42)
--- NOTE | 2024-06-24 08:44 | ED_ITS ---
HPI - Chest Pain General Chief Complaint: Chest Pain Stated Complaint: chest pain Time Seen by Provider: 06/24/24 08:13 History of Present Illness HPI narrative: patient is a 24-year-old female who presents ER with chest pain. Ongoing since yesterday. Right-sided and radiating to the right back. Worse with deep breath and swelling. Mild dyspnea. Has history of DVT with PE in 2018 when she was and had her gallbladder out. No recent long distance travel or surgeries. No hemoptysis. No alleviating factors. Related Data Allergies Allergy/AdvReac Type Severity Reaction Status Date / Time diphenhydramine Allergy Severe Anaphylactic Verified 06/24/24 08:16 [From Benadryl] Shock ketorolac Allergy Severe Anaphylactic Verified 06/24/24 08:16 Shock morphine AdvReac Hallucinati Verified 06/24/24 08:16 ng Review of Systems Review of Systems: All systems reviewed & are unremarkable except as noted in HPI and below Constitutional: Constitutional: Reports no additional constitutional complaints ENT: Reports system reviewed and no additional complaints, except as documented Cardiovascular: Cardiovascular: Reports chest pain, Denies rapid heart rate and Denies radiating jaw, neck or arm pain Respiratory: Respiratory: Reports no additional respiratory complaints Gastrointestinal: Gastrointestinal: Reports no additional gastrointestinal complaints Musculoskeletal: Musculoskeletal: Reports no additional musculoskeletal complaints PMF Past Medical History Medical History Anxiety Asthma exercise induced Factor V Leiden History of pulmonary embolism after first Migraine Pancreatitis PTSD (post-traumatic stress disorder) Surgical History Surgical History History of cholecystectomy History of tonsillectomy Family History Family History Father Diabetes mellitus Patient's father is in good health Grandparent Diabetes mellitus Hypertension Mother Patient's mother is in good health Sibling Patient's sister is in good health Social History Social History Smoking status: Never smoker Second hand tobacco smoke exposure: No Alcohol intake: never Substance use: current Substance use type: marijuana Other substance usage details: smokes marijuana every other day Living arrangements: with family Gender identity (if verbalized by the patient): Female Sexual Orientation (if Verbalized by the Patient): Straight or Heterosexual Spiritual care concerns: No Exam Narrative: GENERAL: Well-appearing, well-nourished, and in no acute distress. HEAD: Normocephalic, atraumatic. ENT: Mucous membranes moist. CHEST: Clear to auscultation. No respiratory distress. TTP right chest wall. HEART: Tachycardic and regular. Normal peripheral pulses. ABDOMEN: Soft, nontender, nondistended. EXTREMITIES: Normal range of motion. No edema. SKIN: Warm, dry, no rash. NEURO: Alert and oriented x3. PSYCH: Normal mood and affect. Course Course Emergency Course: Patient formed results. No PE, no CT, no pneumonia. Discharge home with muscle relaxers and scheduled Tylenol. Vital Signs Vital signs: Vital Signs Temperature 97.9 F 06/24/24 08:08 Pulse Rate 91 06/24/24 08:08 Respiratory Rate 17 06/24/24 08:08 Blood Pressure 107/81 06/24/24 08:08 Pulse Oximetry 98 06/24/24 08:08 Oxygen Delivery Room Air 06/24/24 08:08 Temperature 97.9 F 06/24/24 08:08 Pulse Rate 85 06/24/24 08:25 Respiratory Rate 13 06/24/24 08:25 Blood Pressure 103/75 06/24/24 08:25 Pulse Oximetry 100 06/24/24 08:25 Oxygen Delivery Room Air 06/24/24 08:14 MDM - Chest Pain Lab Data 06/24/24 08:16 06/24/24 08:16 Labs: Lab Results 06/24/24 06/24/24 Range/Units 08:16 09:09 WBC 9.8 (4.5-10.0) K/mm3 RBC 4.59 (4.2-5.4) M/mm3 Hgb 13.5 (12.0-15.0) g/dL Hct 41.0 (37.0-47.0) % MCV 89.3 (80-100) fl MCH 29.4 (26-34) pg MCHC 32.9 (32-36) g/dl RDW 12.9 (11.5-14.5) % Plt Count 317 (150-375) k/mm3 MPV 10.6 H (7.4-10.4) fl Immature Gran % (Auto) 0.3 (0-0.5) % Neut % (Auto) 79.2 H (45.5-73.1) % Lymph % (Auto) 13.0 L (18.3-44.2) % [place] % (Auto) 5.4 (2.6-8.5) % Eos % (Auto) 1.9 (0-4.4) % Baso % (Auto) 0.2 (0.2-1.2) % Lymph # (Auto) 1.27 (0.9-3.2) K/mm3 [place] # (Auto) 0.5 (0.1-0.6) K/mm3 Eos # (Auto) 0.2 (0-0.3) K/mm3 Baso # (Auto) 0.0 (0.0-0.1) K/mm3 Abs Immat Gran (auto) 0.03 (0.00-0.031) K/mm3 Absolute Neuts (auto) 7.8 H (1.3-6.7) K/mm3 Absolute Nucleated RBC 0.000 (0.0-0.012) K/mm3 Nucleated RBC % 0.0 (0.0-0.2) % PT 13.0 (11.1-14.7) Seconds INR 0.9 APTT 26.4 (22.3-36.8) Seconds Sodium 138 (137-145) mmol/L Potassium 4.0 (3.4-5.0) mmol/L Chloride 104 (98-107) mmol/L Carbon Dioxide 27 (22-30) mmol/L Anion Gap 7 (4-12) mmol/L BUN 13 (7-17) mg/dL Creatinine 0.60 L (0.7-1.0) mg/dL Estim Creat Clear Calc 125 ml/min Estimated GFR > 60 (59 - ) Glucose 86 (65-110) mg/dL Calcium 8.9 (8.4-10.2) mg/dL Total Bilirubin 0.4 (0.2-1.3) mg/dL AST 27 (14-36) U/L ALT 15 (6-35) U/L Alkaline Phosphatase 72 (38-126) U/L Troponin I < 0.012 (0.000-0.034) ng/mL Total Protein 8.0 (6.3-8.2) g/dL Albumin 4.3 (3.5-5.1) g/dL Lipase 76 (23-300) U/L POC Urine HCG, Qual Negative (Negative) Discharge Plan Discharge Clinical Impression: Acute chest wall pain Patient Disposition: Home, Self-Care Condition: Stable Instructions: Chest Wall Pain (ED) Additional Instructions: Please return to the emergency department if you develop severe and persistent chest pain, difficulty breathing, dizziness, leg swelling or if you are coughing up blood as these can be signs of a medical emergency. Please call your doctor for a follow up appointment to determine the need for further testing. Prescriptions: New acetaminophen 325 mg capsule 650 mg PO Q6H Qty: 30 0RF cyclobenzaprine 10 mg tablet 10 mg PO TID PRN (Reason: muscle spasm) Qty: 20 0RF No Action valacyclovir 1 gram tablet 1,000 mg PO BID 7 Days Qty: 14 0RF mupirocin 2 % ointment 1 applic topical BID 7 Days Qty: 15 0RF Follow-up/Referrals: UNKNOWN,DOCTOR [Primary Care Provider] - 1 Week Stand Alone Forms: Work/School Release IP
[2024-06-24 08:47] LABS: Troponin I < 0.012 ng/mL (0.000-0.034)
[2024-06-24 09:11] LABS: BEDSIDEPREGUCG Negative (Negative)
== END 2024-06-24 10:45 | disposition home or self-care (01) ==
PROVIDERS: Emergency Provider Emergency Medicine
DX: R07.89 Other chest pain (principal); J45.990 Exercise induced bronchospasm; D68.51 Activated protein C resistance; Z86.711 Personal history of pulmonary embolism; Z90.49 Acquired absence of other specified parts of digestive tract
CPT/HCPCS: 36415; 71275; 80053; 81025; 83690; 84484; 85025; 85610; 85730; 93005; 96374; 99284; A9270; J3010; Q9967

== ENCOUNTER 2024-11-14 18:45 | Emergency (ER) | payer OTHER, SELFPAY ==
--- NOTE | ~2024-11-14 | XR_ITS ---
EXAMINATION: XR chest 2V Exam Date/Time: 11/14/2024 19:14 CDT HISTORY: cough for 2 weeks Comparison: 02/07/2022. RESULT: Lines, tubes, and devices: None. Lungs and pleura: Clear. Cardiomediastinal silhouette: Stable. Other: No acute osseous or upper abdominal finding. IMPRESSION: No acute cardiopulmonary process. Reviewed, dictated and finalized at location K.
--- OUTSIDE RECORDS SUMMARY | 2024-11-14 18:48 | XMS_ITS | Referral Summary ---
Author Organization [facility] [address] Address [address] [place] [address] Care Team Providers Care Manager System Name Role Phone Chrissie Handley DO Unavailable [phone] Melanie Huber Primary Care Provider + Allergies Active Allergy Reactions Criticality Noted Date Comments Diphenhydramine Hcl Anxiety Low 08/29/2020 Electrolytes-Dextrose Angioedema High 01/05/2022 Ketorolac Anaphylaxis High 05/15/2019 Vancomycin Itching Low 03/31/2021 Itching, no hives or rash. Rivaroxaban Other (See comments) High 02/09/2021 PARALYSIS Medications butalbital-acetam inophen-caffeine (FIORICET) 50-300-40 mg per capsule 07/28/2021 Active enoxaparin (LOVENOX) 40 mg/0.4 mL syringe 11/01/2021 A ctive ondansetron (ZOFRAN) 4 mg tablet 11/21/2021 Active pediatric multivitamin no.76 (FLINTSTONES COMPLETE ORAL) Take by mouth Active famotidine (PEPCID) 40 mg tablet 02/07/2022 Active oxyCODONE (ROXICODONE) 5 mg immediate release tablet Take 5 mg by mouth every 4 (four) hours as needed 02/20/2022 Active cyclobenzaprine (FLEXERIL) 10 mg tablet TAKE 1 TABLET BY MOUTH THREE TIMES DAILY NEEDED FOR SPASMS 02/20/2022 Active cephalexin (KEFLEX) 500 mg capsule Take 500 mg by mouth 4 (four) times a day 02/20/2022 Active Active Problems Problem Noted Date Diagnosed Date Anemia in , third trimester 02/08/2021 Other diseases of the blood and blood-forming organs and certain disorders involving the immune mechanism complicating , third trimester 01/31/2021 Social History Tobacco Use Types Packs/Day Years Used Date Smoking Tobacco: Never Smokeless Tobacco: Never Alcohol Use Standard Drinks/Week Comments No 0 (1 standard drink = 0.6 oz pur e alcohol) Personal Safety Answer Date Recorded Getting School Help Needed Not on file 10/27 Comments No Sex and Gender Information Value Date Recorded Sex Assigned at Not on file Legal Sex Female 12:54 AM CAMPUS COORDINATOR Gender Identity Not on file Sexual Orientation Not on file Last Filed Vital Signs Vital Sign Reading Time Taken Comments Blood Pressure 100/62 03/07/2022 1:57 PM CDT Pulse 106 10/30/2019 7:07 PM CAMPUS COORDINATOR Temperature 36.7 C (98.1 F) 10/30/2019 7:07 PM CAMPUS COORDINATOR Respiratory Rate 18 10/30/2019 7:07 PM CAMPUS COORDINATOR Oxygen Saturation 100% 10/30/2019 7:07 PM CAMPUS COORDINATOR Inhaled Oxygen Concentration - - Weight 74.3 kg (163 lb 12.8 oz) 03/07/2022 1:57 PM CDT Height 167.6 cm (5' 6 ) 03/07/2022 1:57 PM CDT Body Mass Index 26.44 03/07/2022 1:57 PM CDT Plan of Treatment Not on file Procedures Procedure Name Priority Date/Time Associated Diagnosis Comments HEPATITIS C ANTIBODY Routine 03/07/2022 11:10 AM CDT 8 weeks gestation of PAP WITH REFLEX TO HIGH RISK HPV Routine 10/10/2021 3:00 PM CAMPUS COORDINATOR 8 weeks gestation of from Last 3 Months or Most Recently Relevant to Health Maintenance Results * Hepatitis C antibody (03/07/2022 11:10 AM CDT) Hep C Ab NON-REACTI VE NON-REACT SALUD [facility] SIGNAL TO CUT-OFF 0.03 <1.00 [facility] Comment: HCV antibody was non-reactive. There is no laboratory evidence of HCV infection. In most cases, no further action is required. However, if recent HCV exposure is suspected, a test for HCV RNA (test code 25296) is suggested. For additional information please refer to http://education.GiveNext/faq/DIL55g0 (This link is being provided for informational/ educational purposes only.) Blood specimen (specimen) 03/07/2022 11:10 AM CDT 03/07/2022 11:13 AM CDT Anabel Roth NP LAB MICROBIOLOGY - [facility] ORDERABLES Final Result [place] [address] [address] [address] * Pap with reflex to High Risk HPV (10/10/2021 3:00 PM CAMPUS COORDINATOR) CLINICAL INFORMATION: Leo Del Real Comment:Information not prov ided LMP Leo Del Real Comment:SCREENING Previous Pap Leo Del Real Comment:Information not prov ided Prev. Bx Leo Del Real Comment:Information not prov ided SOURCE: Leo Del Real Comment:Cervix, Endocervix Pap, specimen adequacy Leo Del Real Comment: Satisfactory for evaluation. Endocervical/transformation zone component present. Age and/or menstrual status not provided HPV interp Leo Del Real Comment:Negative for intraep ithelial lesion or malignancy. COMMENTS Leo Del Real Comment: This Pap test has been evaluated with computer assisted technology. Library Page Narayan Philippe Comment: FRYE, CT(ASCP) CT Screening location: [facility] [place] [address] Review account support manager Leo Del Real Comment: BKA, CT(ASCP) CT screening location: [place] [address] [address] [place] [address] Comment Leo Del Real Comment: EXPLANATORY NOTE: The Pap is a screening test for cervical cancer. It is not a diagnostic test and is subject to false negative and false positive results. It is most reliable when a satisfactory sample, regularly obtained, is submitted with relevant clinical findings and history, and when the Pap result is evaluated along with historic and current clinical information. Thin prep 10/10/2021 3:00 PM CAMPUS COORDINATOR 10/11/2021 3:24 AM CAMPUS COORDINATOR Anabel Roth NP LAB CYTOLOGY ORDERABLES Final Result [facility] [address] [place] [address] from Last 3 Months or Most Recently Relevant to Health Maintenance Insurance [facility] Care Teams Manager System Relationship Specialty Start Date End Date Melanie Huber PA [address] [place] [address] PCP - General Physician Oven Press Tender 06/25/23 [place] [address] [place] [address] Obstetrics and Gynecology 02/08/21
--- OUTSIDE RECORDS SUMMARY | 2024-11-14 18:48 | XMS_ITS | Clinical Summary ---
Author Organization [facility] [address] Address [address] [place] [address] Care Team Providers Care Senior Project Leader/Team Lead Name Role Phone Chrissie Handley DO Unavailable [phone] Melanie Huber Primary Care Provider + Allergies [...] immune mechanism complicating , third trimester 01/31/2021 Surgical History Surgery Date Site/Laterality Comments GALLBLADDER SURGERY 09/02/2017 - 09/01/2018 TONSILLECTOMY 09/02/2004 - 09/01/2005 Medical History Medical History Date Comments Pancreatitis Factor V Leiden mutation complicating 01/31/2021 Family History Medical History Relation Name Comments Heart attack Paternal Grandfather Relation Name Status Comments Paternal Grandfather Social History Tobacco Use Types Packs/Day Years [...] on file Legal Sex Female 12:54 AM COLLECTION TELLER Gender Identity Not on file Sexual Orientation Not on file Obstetrics History Para Term AB IAB SAB Ectopic Multiple Livin g Live Births 4 2 2 1 1 2 2 Date Outcome GA Total Labor Labor/2nd/3rd Weight Sex Type Anes PTL Ana A1 A5 Name Clin SAB 2017 Term 38w 0d 3.26 kg (7 lb 3 oz) M Vag-S pont Livin g Víctor Angel y Delivery Location:[facility] 2020 Term 39w 0d 1h 37m 0h 55m/0h 39m/0h 03m 3.06 kg (6 lb 11.9 oz) F Vag-S pont Epidur al Livin g 8 9 [place] ,GIRL1 AUGUSTA Dickens Senci boy DO Complications:None Delivery Location:[facility] ([facility] ) Comments 1) Here with c/o vaginal lum p x2 days. Vagina is tender. Minimal pink tinge on tissue when wipes a few times/wk x1wk. Pt on pelvic rest, last intercourse greater than 1mo ago. Notes reg FM. No contx, LOF or urinary issues. Intermittent cramping since yesterday. 2) Hx +Factor V Leiden. Lovenox 40mg/d. Will see MFM again on 02/14/21. 3) Pt seen in [facility] on 01/26/21 for WHITE. She was dehydrated, WHITE resolved w/IVFs. Has rx Fioricet, did not feel need to fill. 4) Dr Martínez. In to see pt. Vag exam done. Notes 1.5cm sebaceous cyst of vaginal area. Disc'd cyst is due to hormonal shift. Not recommended to drain at this time. Dr. Martínez suspects cramping is due to possible dehydration again. Pt also notes left lower back pain, advised to [facility] now. Pt agrees, will go directly. Last Filed Vital Signs Vital Sign Reading Time Taken Comments Blood Pressure 100/62 03/07/2022 1:57 PM CDT Pulse 106 10/30/2019 7:07 PM COLLECTION TELLER Temperature 36.7 C (98.1 F) 10/30/2019 7:07 PM COLLECTION TELLER Respiratory Rate 18 10/30/2019 7:07 PM COLLECTION TELLER Oxygen Saturation 100% 10/30/2019 7:07 PM COLLECTION TELLER Inhaled Oxygen Concentration - - Weight 74.3 kg (163 lb 12.8 oz) 03/07/2022 1:57 PM CDT Height 167.6 cm (5' 6 ) 03/07/2022 1:57 PM CDT Body Mass Index 26.44 03/07/2022 1:57 PM CDT Plan of Treatment Health Maintenance Due Date Last Done Comments Depression Screening 1998 HPV Vaccines (1 - 3-dose series) 2013 Pneumococcal vaccine <65 (1 of 2 - PCV) 2017 Regular Well Visit/Exam 18-64 05/29/2022 05/29/2021 Cervical Cancer Screening 10/10/2022 10/10/2021, Influenza Vaccine (#1) 2024 09/23/2019 DTaP/Tdap/Td Vaccine (8 - Td or Tdap) 01/18/2031 01/18/2021, 05/01/2018, 04/18/2010, Additional history exists Hepatitis B Screening Completed 1998, 998 Varicella Vaccines Completed 12/30/2007, 09/06/1999 Hepatitis C Screening Completed 03/07/2022, 022 Procedures Procedure Name Priority Date/Time Associated Diagnosis Comments HEPATITIS C ANTIBODY Routine 03/07/2022 11:10 AM CDT 8 weeks gestation of PAP WITH REFLEX TO HIGH RISK HPV Routine 10/10/2021 3:00 PM COLLECTION TELLER 8 weeks gestation of from Last 3 [...] a test for HCV RNA (test code 13039) is suggested. For additional information please refer to http://education.AXON Ghost Sentinel/faq/AKF11b0 (This link is being provided for informational/ educational purposes only.) Blood specimen (specimen) 03/07/2022 11:10 AM CDT 03/07/2022 11:13 AM CDT Anabel Roth NP LAB MICROBIOLOGY - [facility] ORDERABLES Final Result [facility] [address] [place] [address] * Pap with reflex to High Risk HPV (10/10/2021 3:00 PM COLLECTION TELLER) CLINICAL INFORMATION: [facility] Del Real Comment:Information not prov ided LMP [facility] Comment:SCREENING Previous Pap [facility] Comment:Information not prov ided Prev. Bx [facility] Comment:Information not prov ided SOURCE: Derek Del Real Comment:Cervix, Endocervix Pap, specimen adequacy [facility] Del Real Comment: Satisfactory for evaluation. Endocervical/transformation zone component present. Age and/or menstrual status not provided HPV interp Derek Del Real Comment:Negative for intraep ithelial lesion or malignancy. COMMENTS Derek Del Real Comment: This Pap test has been evaluated with computer assisted technology. Systems Engineer Narayan Philippe Comment: FRYE, CT(ASCP) CT Screening [facility]: [facility] [place] [address] Review pulmonary care nurse Derek Del Real Comment: BKA, CT(ASCP) CT screening location: [place] [address] [place] [address] Comment Derek Del Real Comment: EXPLANATORY NOTE: The Pap [...] clinical information. Thin prep 10/10/2021 3:00 PM COLLECTION TELLER 10/11/2021 3:24 AM COLLECTION TELLER Anabel Roth NP LAB CYTOLOGY ORDERABLES Final Result [facility] [address] [address] [place] [address] from Last 3 Months or Most Recently Relevant to Health Maintenance Insurance [employer] [place] [phone] [facility] [employer] [facility] [facility] [employer] [phone] [facility] Care Teams Senior Project Leader/Team Lead Relationship Specialty Start Date End Date Melanie Huber PA [address] [place] [address] PCP - General Physician Gis Technician 06/25/23 [place] [address] [place] [address] Obstetrics and Gynecology 02/08/21
--- OUTSIDE RECORDS SUMMARY | 2024-11-14 18:48 | XMS_ITS | Clinical Summary ---
Author Organization [facility] [employer] Address [address] [place] [address] Care Team Providers Care Dental Laboratory Manager Name Role Phone Pedro Pablo Fall MD Primary Care Provider Source Comments [facility] [employer],non-owned Affiliates and Associated Physician Practices is amultiple site organization consisting of ambulatory clinics and hospital sitesin [place], [place], [place] and [place]. This disclosure is being madepursuant to the Care Everywhere program and may not contain all information available regarding this patient. Last updated 18.[facility] [employer] Allergies Active Allergy Reactions Criticality Noted Date Comments Ketorolac Anaphylaxis High 05/15/2019 Medications Be aware that medications may not be up to date on this document. Always verify current medications with the patient. No known medications Active Problems Problem Noted Date Diagnosed Date Left arm numbness 05/15/2019 Left arm weakness 05/15/2019 Chest pain 05/15/2019 Social History Tobacco Use Types Packs/Day Years Used Date Smoking Tobacco: Never Smokeless Tobacco: Never Tobacco Cessation:Counseling Given: Yes Alcohol Use Standard Drinks/Week Comments Never 0 (1 standard drink = 0.6 oz pur e alcohol) AUDIT-C Answer Date Recorded Frequency of Alcohol Consumption Never 05/15/2019 Average Number of Drinks Not on file 019 Frequency of Binge Drinking Not on file 05/03 Sex and Gender Information Value Date Recorded Sex Assigned at Not on file Gender Identity Not on file Sexual Orientation Not on file Last Filed Vital Signs Vital Sign Reading Time Taken Comments Blood Pressure 125/85 05/16/2019 7:37 PM CDT Pulse 98 05/16/2019 7:37 PM CDT Temperature 36.7 C (98.1 F) 05/16/2019 7:37 PM CDT Respiratory Rate 18 05/16/2019 7:37 PM CDT Oxygen Saturation 99% 05/16/2019 7:37 PM CDT Inhaled Oxygen Concentration - - Weight 81.6 kg (180 lb) 05/15/2019 10:04 AM CDT Height 165.1 cm (5' 5 ) 05/15/2019 10:04 AM CDT Body Mass Index 29.95 05/15/2019 10:04 AM CDT Plan of Treatment Health Maintenance Due Date Last Done Comments PAP SMEAR 1998 HIV SCREENING 2013 HPV VACCINE (1 - 3-dose series) 2013 HEPATITIS C SCREENING 02/10/2016 DTAP/TDAP/TD VACCINES (1 - Tdap) 2017 HEPATITIS B VACCINE (1 of 3 - 19+ 3-dose series) 2017 COVID-19 VACCINE (1 - 2023-2 5 season) 2024 INFLUENZA VACCINE (#1) 2024 DEPRESSION SCREENING 09/02/2024 ZOSTER VACCINE (1 of 2) 02/15/2048 HIB VACCINE Aged Out No longer eligi ble based on patient's age to complete this topic MENINGOCOCCAL (Group B) VACC INE SHARED DECISION-MAKING Aged Out No longer eligibl e based on patient's age to complete this topic MENINGOCOCCAL GROUPS A/C/Y/W VACCINE Aged Out No longer eligible b ased on patient's age to complete this topic PNEUMOCOCCAL VACCINE Aged Out No long er eligible based on patient's age to complete this topic Advance Directives * Full Code (Latest Code Status on File) Date Activated Date Inactivated Comments 05/15/2019 1:18 PM 05/16/2019 9:28 PM Care Teams Dental Laboratory Manager Relationship Specialty Start Date End Date Pedro Pablo Fall MD PCP - General 06/10/18
--- OUTSIDE RECORDS SUMMARY | 2024-11-14 18:48 | XMS_ITS | Encounter Summary ---
Author Organization [facility] Address [address] [place] [address] Care Team Providers Care Roustabout Crew Name Role Phone Christina Kuo MD Primary Care Provider Encounter Details Date Type Department Care Team (Late st Contact Info) Description 10/30/2021 Telemedicine [facility] [address] [place] [address] Tessa Damon Social History Tobacco Use Types Packs/Day Years Used Date Smoking Tobacco: Never Smokeless Tobacco: Never Alcohol Use Standard Drinks/Week Comments Not Currently 0 (1 standard drink = 0.6 oz pur e alcohol) Comments Yes Sex and Gender Information Value Date Recorded Sex Assigned at Not on file Legal Sex Female 1:17 PM DRAW END HAND Gender Identity Not on file Sexual Orientation Not on file COVID-19 Exposure Response Date Recorded In the last month, have you been in contact with someone who was confirmed or suspected to have Coronavirus / COVID-19? Yes 11/02/2021 11:45 AM DRAW END HAND documented as of this encounter Plan of Treatment Not on file documented as of this encounter Visit Diagnoses Not on filedocumented in this encounter Care Teams Roustabout Crew Relationship Specialty Start Date End Date Christina Kuo MD [address] [place] [id number] PCP - General Family Practice 03/13/21 documented as of this encounter
--- OUTSIDE RECORDS SUMMARY | 2024-11-14 18:48 | XMS_ITS | Clinical Summary ---
Author Organization [facility] Address [address] [place] [address] Phone Care Team Providers Care Gear Nicker Name Role Phone Christina Kuo MD Primary Care Provider [phone] Allergies Active Allergy Reactions Criticality Noted Date Comments Diphenhydramine Hcl Anxiety Low 08/29/2020 Electrolytes-Dextrose Angioedema High 01/05/2022 Ketorolac Anaphylaxis High 08/05/2020 Medications ferrous fumarate (FERRETTS) 325 mg (106 mg iron) Tablet Take 325 mg by mouth daily. Active albuterol HFA 90 mcg inhaler Take 2 Puffs by inhalation every 6 hours as needed for Shortness of Breath. Active acetaminophen (TYLENOL) 325 mg tablet Take 2 Tablets (650 mg) by mouth every 6 hours. 30 Tablet 1 1 Active pediatric multivitamin no.76 (FLINTSTONES COMPLETE ORAL) Take 1 Tablet by mouth daily. Active ondansetron (ZOFRAN) 4 mg Tablet Take 4 mg by mouth every 8 hours as needed for Nausea/Emesis. Active enoxaparin (LOVENOX) 40 mg/0.4 mL injection INJECT 1 SYRINGE UNDER THE SKIN EVERY 24 HOURS 36 Each 3 2 Active cyclobenzaprine (FLEXERIL) 10 mg tablet Take 1 Tablet (10 mg) by mouth 3 times daily as needed for Spasm. 15 Tablet 2 Active oxyCODONE (ROXICODONE) 5 mg tabletIndications :Abdominal pain during in second trimester Take 1 Tablet (5 mg) by mouth every 4 hours as needed for Pain, Break-Through. 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 Short interval between pregn ancies affecting , antepartum 10/30/2021 Other hydronephrosis 03/31/2021 (spontaneous vaginal delivery) 03/1303/14/20 21 Mild intermittent asthma 10/17/2020 Factor V Leiden mutation affecting 06/2021 Hx of Pulmonary embolism 06/02/2018 Overview (03/13/2021): right lung after cholecystectomy Nausea/vomiting in Abdominal pain during in second trimes ter Factor V Leiden Recurrent UTI Resolved Problems Problem Noted Date Diagnosed Date Resolved Date Hematemesis 03/13/2021 10/30/2021 Nausea and vomiting during 2021 10/30/2021 Pain in symphysis pubis during 2021 10/30/2021 Back pain affecting pregnanc y in third trimester 01/31/2021 10/30/2021 Other headache syndrome 01/26/202110/04 Vaginal discharge during pre gnancy in third trimester 01/20/2021 10/30/2021 Decreased movement 01/20/2021 Hyperemesis gravidarum 10/19/202012/06 Hypocalcemia 10/19/2020 10/30/2021 Right flank pain 10/17/2020 10/30/2021 Anemia affecting i n second trimester 10/17/2020 10/30/2021 Hypokalemia 10/17/2020 10/30/2021 Supervision of high risk pre gnancy in third trimester 10/12/2020 10/30/2021 Anticoagulated 10/12/2020 10/30/2021 History of pulmonary embolism 10/12/2020 10/30/2021 History of hyperemesis gravidarum 10/12/2020 10/19/2020 History of pancreatitis 10/12/202010/04 Palpitations 10/12/2020 10/30/2021 Hydronephrosis of right kidney 10/30/2021 Decreased movements in second trimester 10/30/2021 Dehydration during 10/30/2021 Migraines 10/30/2021 Overview (03/13/2021): complex migraines with leg numbness Immunizations Immunization Administration Dates Next Due (ADACEL/BOOSTRIX)(10 YR UP) TDAP VACCINE, 0.5ML, IM 01/18/2021 INFLUENZA VACCINE QUADRIVALENT 6 MOS UP PF IM (),09/23/2019 Family History Medical History Relation Name Comments Healthy Daughter Healthy Son Relation Name Status Comments Daughter Alive Son Alive Social History Tobacco Use Types Packs/Day Years Used Date Smoking Tobacco: Never Smokeless Tobacco: Never Alcohol Use Standard Drinks/Week Comments Not Currently 0 (1 standard drink = 0.6 oz pur e alcohol) Comments No Sex and Gender Information Value Date Recorded Sex Assigned at Not on file Legal Sex Female 1:17 PM AEROSOL SUPERVISOR Gender Identity Not on file Sexual Orientation Not on file Last Filed Vital Signs Vital Sign Reading Time Taken Comments Blood Pressure 98/53 03/14/2022 1:21 PM CDT Pulse 78 03/14/2022 3:59 AM CDT Temperature 36.8 C (98.3 F) 03/14/2022 1:21 PM CDT Respiratory Rate 18 03/14/2022 1:21 PM CDT Oxygen Saturation 98% 03/14/2022 3:59 AM CDT Inhaled Oxygen Concentration - - Weight 73 kg (161 lb) 03/11/2022 8:47 PM CDT Height 167.6 cm (5' 6 ) 03/11/2022 8:47 PM CDT Body Mass Index 25.99 03/11/2022 8:47 PM CDT Plan of Treatment Health Maintenance Due Date Last Done Comments PNEUMOCOCCAL VACCINE 0-49 YEARS (1 of 2 - PCV) 004 HPV VACCINES (1 - 3-dose series) 2013 HEPATITIS B VACCINES (1 of 3 - 19+ 3-dose series) 01/31 CERVICAL CANCER SCREENING 2019 INFLUENZA VACCINE (#1) 2024 09/23/2019 DTAP/TDAP/TD VACCINES (2 - Td or Tdap) 01/18/2031 CHLAMYDIA SCREENING (ANNUAL) 11-24 YEARS Discontinued 02/18/2022 Procedures Procedure Name Priority Date/Time Associated Diagnosis Comments GC/CHLAMYDIA, UROGENITAL Routine 02/18/2022 10:07 PM CDT from Last 3 Months or Most Recently Relevant to Health Maintenance Results * GC/CHLAMYDIA, UROGENITAL (02/18/2022 10:07 PM CDT) CHLAMYDIA DNA AMPLIFICATION NOT DETECTED Not Detected 02/19/2022 4:02 PM CDT [facility] GC DNA AMPLIFICATION NOT DETECTED Not Detected 02/19/2022 4:02 PM CDT [facility] Urine URINE SPECIMEN OBTAINED BY CLEAN CATCH PROCEDURE / Unknown Collection / Unknown 02/18/2022 10:07 PM CDT 02/18/2022 10:14 PM CDT Narrative [facility] - 02/19/2022 4:02 PM CDT Results should not be used for the evaluation of suspected sexual abuse or for other medico-legal indications. The only legally accepted results are from culture. Results cannot be used to assess therapeutic success or failure since nucleic acids may persist following antimicrobial therapy. us Chrissie Handley DO MICROBIOLOGY - GENERAL ORDERAB LES Final Result [facility]# [id number] [address] [place] [place] [address] from Last 3 Months or Most Recently Relevant to Health Maintenance Insurance [employer] [place] [employer] (INTERNAL) [facility] Internal [facility] Advance Directives For more information, please contact: [phone] * Full Code (Latest Code Status on File) Date Activated Date Inactivated Comments 03/11/2022 10:23 PM 03/14/2022 4:32 PM * Full Code Date Activated Date Inactivated Comments 02/18/2022 4:00 PM 02/20/2022 5:32 PM * Full Code Date Activated Date Inactivated Comments 12/03/2021 4:05 PM 12/03/2021 10:04 PM * Full Code Date Activated Date Inactivated Comments 03/14/2021 1:04 AM 03/15/2021 4:12 PM * Full Code Date Activated Date Inactivated Comments 03/13/2021 3:33 AM 03/14/2021 1:03 AM Care Teams Gear Nicker Relationship Specialty Start Date End Date Christina Kuo MD [address] [place] [address] PCP - General Family Practice 03/13/21
--- OUTSIDE RECORDS SUMMARY | 2024-11-14 18:48 | XMS_ITS | Patient Health Summary ---
Author Organization [facility] Address [address] [place] [address] Care Team Providers Care Circle Edger Name Role Phone Pedro Pablo Fall MD Primary Care Provider [phone] Note from [facility],non-owned Affiliates and Associated Physician Practices is amultiple site organization consisting of ambulatory clinics and hospital sitesin [place], [place], [place] and [place]. This disclosure is being madepursuant to the Care Everywhere program and may not contain all information available regarding this patient. Last updated 18.[facility] Tango Allergies * Ketorolac(Anaphylaxis) -High Criticality Medications Be aware that medications may not [...] Mass Index 29.95 05/15/2019 10:04 AM CDT Procedures * CARDIAC RHYTHM STRIP ORDER(Performed 05/18/2019) * CARDIAC EKG ORDER(Performed 05/18/2019) * TSH REFLEX FREE T4(Performed 05/16/2019) * BASIC METABOLIC PANEL (CALCIUM TOTAL)(Performed 05/16/2019) * CBC W AUTO DIFFERENTIAL(Performed 05/16/2019) * LIPID PROFILE(Performed 05/16/2019) Performed for Left arm numbness, Left arm weakness * TROPONIN I(Performed 05/16/2019) Performed for Left arm numbness * URINE MICROSCOPIC ONLY REFLEX TO CULTURE(Performed 05/16/2019) Performed for Left arm numbness * URINALYSIS REFLEX MICROSCOPIC REFLEX CULTURE(Performed 05/16/2019) Performed for Left arm numbness * CULTURE URINE(Performed 05/16/2019) Performed for Left arm numbness * EKG 12-LEAD(Performed 05/15/2019) Performed for Chest pain, unspecified type * MRI BRAIN WO CONTRAST(Performed 05/15/2019) Performed for Left arm numbness * TROPONIN I(Performed 05/15/2019) * MAGNESIUM BLOOD(Performed 05/15/2019) * TROPONIN I(Performed 05/15/2019) * CT ANGIO CHEST PULM EMBOLISM(Performed 05/15/2019) Performed for Chest pain, unspecified type * CT ANGIO BRAIN NECK STROKE(Performed 05/15/2019) Performed for Left arm numbness * XR CHEST 2VW(Performed 05/15/2019) Performed for Chest pain, unspecified type * HEMOGLOBIN A1C(Performed 05/15/2019) Performed for Left arm numbness, Left arm weakness * HCG BLOOD QUALITATIVE(Performed 05/15/2019) * CBC W AUTO DIFFERENTIAL(Performed 05/15/2019) * INR WHOLE BLOOD - POINT OF CARE (IP) STROKE(Performed 05/15/2019) * CREATININE BLOOD - POINT OF CARE (IP)(Performed 05/15/2019) Performed for Chest pain, unspecified type * CT HEAD WO CONTRAST(Performed 05/15/2019) Performed for Chest pain, unspecified type * TYPE + SCREEN PANEL(Performed 05/15/2019) * COAGULATION PANEL W D-DIMER(Performed 05/15/2019) * COMPREHENSIVE METABOLIC PANEL(Performed 05/15/2019) * TROPONIN I(Performed 05/15/2019) * GLUCOSE - POINT OF CARE(Performed 05/15/2019) * EKG 12-LEAD(Performed 05/15/2019) Performed for Chest pain, unspecified type Results * CARDIAC RHYTHM STRIP ORDER (05/18/2019 9:07 PM CDT) Narrative 05/18/2019 9:07 PM CDT Ordered by an unspecified provider. Scanned Document CARDIAC SERVICES ORD ERABLES * CARDIAC EKG ORDER (05/18/2019 8:59 PM CDT) Narrative 05/18/2019 8:59 PM CDT Ordered by an unspecified provider. Scanned Document CARDIAC SERVICES ORD ERABLES * TSH REFLEX FREE T4 (05/16/2019 3:30 AM CDT) Pathologist [facility] TSH 1.3026 0.35 - 4.94 ulU/mL 05/16/2019 4:52 AM CDT [facility] Blood BLOOD SPECIMEN / Unknown Venipuncture / Unknown 05/16/2019 3:30 AM CDT 05/16/2019 3:55 AM CDT Krystal Salvador FINANCIAL ANALYST ACCOUNTANT-APPLICATION PERFORMANCE ENGINEER LAB - CHEM ISTRY ORDERABLES [facility] [address] [place] [address] * TROPONIN I (05/16/2019 3:30 AM CDT) Only the most recent of4 resultswithin the time period is included. Pathologist [facility] Troponin I 0.010 <0.038 ng/mL 05/16/2019 4:37 AM CDT [facility] Blood BLOOD SPECIMEN / Unknown Venipuncture / Unknown 05/16/2019 3:30 AM CDT 05/16/2019 3:55 AM CDT Zack Oliva MD LAB - CHEMISTRY DAGO NAVA [facility] Organization Address City/State/ZIP Co de Phone Number [facility] [address] [place] [address] * CBC W AUTO DIFFERENTIAL (05/16/2019 3:30 AM CDT) Only the most recent of2 resultswithin the time period is included. WBC 5.6 4.4 - 10.7 x10E9/L 05/16/2019 4:08 AM CDT [facility] WBC Corrected 05/16/2019 4:08 AM CDT [facility] RBC 4.40 3.80 - 5.20 x10E12/L 05/16/2019 4:08 AM CDT [facility] Hemoglobin 12.0 12.0 - 15.6 gm/dL 05/16/2019 4:08 AM CDT [facility] Hematocrit 37.8 35.9 - 45.5 % 05/16/2019 4:08 AM CDT [facility] MCV 85.9 80.7 - 98.3 fl 05/16/2019 4:08 AM CDT [facility] MCH 27.3 26.7 - 34.0 pg 05/16/2019 4:08 AM CDT [facility] MCHC 31.7 30.8 - 35.9 gm/dL 05/16/2019 4:08 AM CDT [facility] Platelet Count 329 153 - 416 x10E9/L 05/16/2019 4:08 AM CDT [facility] RDW-CV 14.0 12.1 - 14.9 % 05/16/2019 4:08 AM CDT [facility] MPV 11.2 9.4 - 12.9 fl 05/16/2019 4:08 AM CDT [facility] Neutrophils % 51.5 44.0 - 73.0 % 05/16/2019 4:08 AM CDT [facility] Lymphocytes % 39.7 20.0 - 43.0 % 05/16/2019 4:08 AM CDT [facility] Monocytes % 6.1 5.0 - 13.0 % 05/16/2019 4:08 AM CDT [facility] Eosinophils % 2.0 0.0 - 6.0 % 05/16/2019 4:08 AM CDT [facility] Basophils % 0.5 0.0 - 2.0 % 05/16/2019 4:08 AM CDT [facility] Immature Granulocytes 0.2 0 - 1 % 05/16/2019 4:08 AM CDT [facility] Neutrophil Absolute 2.88 2.01 - 7.14 x10E9/L 05/16/2019 4:08 AM CDT [facility] Lymphocytes Absolute 2.22 1.07 - 3.94 x10E9/L 05/16/2019 4:08 AM CDT [facility] Monocytes Absolute 0.34 0.26 - 1.07 x10E9/L 05/16/2019 4:08 AM CDT [facility] Eosinophils Absolute 0.11 0 - 0.47 x10E9/L 05/16/2019 4:08 AM CDT [facility] Basophils Absolute 0.03 0 - 0.08 x10E9/L 05/16/2019 4:08 AM CDT [facility] Immature Granulocytes Absolute 0.01 0.00 - 0.06 x10E9/L 05/16/2019 4:08 AM CDT [facility] nRBC Auto 0 /100 WBC 05/16/2019 4:08 AM CDT [facility] Blood BLOOD SPECIMEN / Unknown Venipuncture / Unknown 05/16/2019 3:30 AM CDT 05/16/2019 3:55 AM CDT Krystal Salvador FINANCIAL ANALYST ACCOUNTANT-APPLICATION PERFORMANCE ENGINEER LAB - CARL TOLOGY ORDERABLES [facility] [address] [place] [address] * (ABNORMAL) BASIC METABOLIC PANEL (CALCIUM TOTAL) (05/16/2019 3:30 AM CDT) [facility] Glucose 113(H) 74 - 106 mg/dL 05/16/2019 4:31 AM CDT [facility] Sodium 140 136 - 145 mmol/L 05/16/2019 4:31 AM CDT [facility] Potassium 3.2(L) 3.5 - 5.1 mmol/L 05/16/2019 4:31 AM CDT [facility] Chloride 105 98 - 107 mmol/L 05/16/2019 4:31 AM CDT [facility] CO2 24 23 - 31 mmol/L 05/16/2019 4:31 AM CDT [facility] Calcium 8.8 8.4 - 10.2 mg/dL 05/16/2019 4:31 AM CDT [facility] Anion Gap 11 8 - 16 mmol/L 05/16/2019 4:31 AM CDT [facility] BUN 8 7 - 18.7 mg/dL 05/16/2019 4:31 AM CDT [facility] Creatinine 0.66 0.55 - 1.02 mg/dL 05/16/2019 4:31 AM CDT [facility] eGFR by MDRD >60 >60 mL/min/1.7 3m2 05/16/2019 4:31 AM CDT [facility] eGFR by MDRD >60 >60 mL/min/1.7 3m2 05/16/2019 4:31 AM CDT [facility] Blood BLOOD SPECIMEN / Unknown Venipuncture / Unknown 05/16/2019 3:30 AM CDT 05/16/2019 3:55 AM CDT Krystal Salvador FINANCIAL ANALYST ACCOUNTANT-APPLICATION PERFORMANCE ENGINEER LAB - CHEM ISTRY ORDERABLES [facility] [address] [place] [address] * (ABNORMAL) LIPID PROFILE (05/16/2019 3:30 AM CDT) Cholesterol 165 <200 mg/dL 05/16/2019 4:30 AM CDT [facility] Triglycerides 74 <150 mg/dL 05/16/2019 4:30 AM CDT [facility] HDL Cholesterol 36(L) >40 mg/dL 9 4:30 AM CDT [facility] LDL Calculated 114 <130 mg/dL 05/16/2019 4:30 AM CDT [facility] VLDL Calculated 15 <=30 mg/dL 9 4:30 AM CDT [facility] Chol HDL Ratio 4.6(H) <4.5 05/16/2019 4:30 AM CDT [facility] LDL/HDL Ratio 3.2 <5.0 05/16/2019 4:30 AM CDT [facility] Blood BLOOD SPECIMEN / Unknown Venipuncture / Unknown 05/16/2019 3:30 AM CDT 05/16/2019 3:55 AM CDT Zack Oliva MD LAB - CHEMISTRY ORDE RABLES Performing Organization Address [facility] Co de Phone Number [facility] [address] [place], [place] [id number] * (ABNORMAL) URINE MICROSCOPIC ONLY REFLEX TO CULTURE (05/16/2019 12:13 AM CDT) Reflex Status Culture to follow 05/16/2019 12:32 AM CDT [facility] RBC UA 3-5 None Seen, 0-2, 3-5 # /hpf 05/16/2019 12:32 AM CDT [facility] WBC UA 11-20(A) None Seen, 0-5 # /hpf 05/16/2019 12:32 AM CDT [facility] Bacteria UA None Seen None Seen 05/16/2019 12:32 AM CDT [facility] Squamous Epithelial Cells 11-20(A) None Seen, 0-2, 3-5 /hpf 05/16/2019 12:32 AM CDT [facility] Mucus UA 1+ /LPF 05/16/2019 12:32 AM CDT [facility] Hyaline Casts 0-2 None Seen, 0-2 # /lpf 05/16/2019 12:32 AM CDT [facility] Urine URINE SPECIMEN OBTAINED BY CLEAN CATCH PROCEDURE / Unknown Collection / Unknown 05/16/2019 12:13 AM CDT 05/16/2019 12:22 AM CDT Narrative [facility] - 05/16/2019 12:32 AM CDT Zack Oliva MD LAB - URINALYSIS ORD ERABLES Performing Organization Address City/[facility]/ZIP Co de Phone Number [facility] [address] [place], [place] [id number] * (ABNORMAL) URINALYSIS REFLEX MICROSCOPIC REFLEX CULTURE (05/16/2019 12:13 AM CDT) Color UA Yellow Straw, Yellow 05/16/2019 12:32 AM CDT [facility] Clarity UA Slt Cloudy(A) Clear 05/16/2019 12:32 AM CDT [facility] Glucose UA Negative Negative 05/16/2019 12:32 AM CDT [facility] Bilirubin UA Negative Negative 05/16/2019 12:32 AM CDT [facility] Ketone UA Negative Negative 05/16/2019 12:32 AM CDT [facility] Specific [place] UA 1.046(H) 1.005 - 1.030 05/16/2019 12:32 AM CDT [facility] Blood UA 3+(A) Negative 05/16/2019 12:32 AM CDT [facility] pH UA 6.0 5.0 - 8.0 pH 05/16/2019 12:32 AM CDT [facility] Protein UA Negative Negative 05/16/2019 12:32 AM CDT [facility] Urobilinogen UA 2.0(A) Negative mg/dL 05/16/2019 12:32 AM CDT [facility] Nitrite UA Negative Negative 05/16/2019 12:32 AM CDT [facility] Leukocyte UA 1+(A) Negative 05/16/2019 12:32 AM CDT [facility] Urine Microscopy Urine microscopy to follow 05/16/2019 12:32 AM CDT [facility] Reflex Status Culture to follow 05/16/2019 12:32 AM CDT [facility] Urine URINE SPECIMEN OBTAINED BY CLEAN CATCH PROCEDURE / Unknown Collection / Unknown 05/16/2019 12:13 AM CDT 05/16/2019 12:22 AM CDT Narrative [facility] - 05/16/2019 12:32 AM CDT Zack Oliva MD LAB - URINALYSIS ORD ERABLES [facility] [address] [place] [address] * CULTURE URINE (05/16/2019 12:13 AM CDT) Culture Urine <10,000 CFU/mL urogenital maribel MACHELLE 05/17/2019 8:17 AM CDT [facility] Urine URINE SPECIMEN OBTAINED BY CLEAN CATCH PROCEDURE / Unknown Collection / Unknown 05/16/2019 12:13 AM CDT 05/16/2019 12:22 AM CDT Zack Oliva MD LAB - MICROBIOLOGY O RDERABLES Performing Organization Address City/[facility]/ZIP Co de Phone Number [facility] [address] [place] [address], [facility] [phone] * EKG 12-LEAD (05/15/2019 11:59 PM CDT) Only the most recent of2 resultswithin the time period is included. Ventricular Rate 114 BPM [facility] Atrial Rate 114 BPM [facility] P-R Interval 136 ms [facility] QRS Duration ms 82 ms [facility] Q-T Interval ms 354 ms [facility] QTC Calculation (Bezet) 487 ms [facility] Calculated P [place] 39 degrees [facility] Calculated R [place] 75 degrees [facility] Calculated T [place] 25 degrees [facility] Interpretation EKG Sinus tachycardia Otherwise normal ECG No previous ECGs available Confirmed by NAVDEEP LYON MD ([id number]) on 05/18/2019 11:56:24 AM [facility] 05/15/2019 11:5 9 PM CDT 05/18/2019 11:56 AM CDT Maryellen You FINANCIAL ANALYST ACCOUNTANT-APPLICATION PERFORMANCE ENGINEER ECG ORDERABLES Performing Organization Address [facility] Co de Phone Number [facility] * MRI BRAIN WO CONTRAST (05/15/2019 5:55 PM CDT) Anatomical Region Laterality Modality Head Magnetic Resonan ce 05/15/2019 8:52 PM CDT Impressions 05/15/2019 8:54 PM CDT No acute findings in the brain. Please see above for other findings and limitations. Reading Radiologist: Rob Garrett MD on 05/15/2019 at 8:54 PM Narrative 05/15/2019 8:54 PM CDT MRI Brain without contrast Information from HIS: Anesthesia of skin Clinical information:. Left arm numbness. Right-sided weakness. History of CVA. Technique: Noncontrast images of the brain were performed using a variety of MR sequences. This report was transcribed with a computerized speech recognition system. In an effort to expedite patient care, it has not been adjusted for typographical, grammatical or syntax problems by a trained certified medical biller. For questions about the report, please contact the Radiology Department. Findings: An attempt was made to study the patient with the MR protocol. Some images are hampered by artifact. No definite acute lesions can be identified on the diffusion-weighted images in conjunction with ADC map images. The ventricular system is similar in size to brain CT of May 15, 2019. There is no midline shift or mass effect. Procedure Note Rob Garrett MD - 05/15/2019 MRI Brain without contrast Information from HIS: Anesthesia of skin Clinical information:. Left arm numbness. Right-sided weakness. History of CVA. Technique: Noncontrast images of the brain were performed using a variety of MR sequences. This report was transcribed with a computerized speech recognition system. In an effort to expedite patient care, it has not been adjusted for typographical, grammatical or syntax problems by a trained certified medical biller. For questions about the report, please contact the Radiology Department. Findings: An attempt was made to study the patient with the MR protocol. Some images are hampered by artifact. No definite acute lesions can be identified on the diffusion-weighted images in conjunction with ADC map images. The ventricular system is similar in size to brain CT of May 15, 2019. There is no midline shift or mass effect. IMPRESSION No acute findings in the brain. Please see above for other findings and limitations. Reading Radiologist: Rob Garrett MD on 05/15/2019 at 8:54 PM Zack Oliva MD MR ORDERABLES * MAGNESIUM BLOOD (05/15/2019 1:01 PM CDT) Magnesium 1.9 1.6 - 2.6 mg/dL 05/15/2019 1:51 PM CDT [facility] Blood BLOOD SPECIMEN / Unknown Venipuncture / Unknown 05/15/2019 1:01 PM CDT 05/15/2019 1:10 PM CDT Krystal Salvador FINANCIAL ANALYST ACCOUNTANT-APPLICATION PERFORMANCE ENGINEER LAB - CHEM ISTRY ORDERABLES [facility] [address] [place] [address] * CT CHEST PE (05/15/2019 11:30 AM CDT) Anatomical Region Laterality Modality Chest Computed Tomogra phy 05/15/2019 11:4 5 AM CDT Impressions 05/15/2019 11:47 AM CDT No pulmonary embolism or other acute process identified within the chest. Reading Radiologist: Andrea Ndiaye MD on 05/15/2019 at 11:47 AM Narrative 05/15/2019 11:[address] PE Protocol Clinical Indication: Chest pain, unspecified. COMPARISON: None. Technique: The pulmonary embolus protocol was utilized. Axial CT images from the lung apices to the lung bases were obtained following Isovue 370, 80 cc intravenous contrast administration. Multiplanar maximum intensity projection reconstructions were created on an independent workstation. Findings: No airspace disease or pulmonary edema. The central airways are clear. There is no bronchial wall thickening or bronchiectasis. No acute osseous abnormality or osseous lesion identified. No supraclavicular or axillary lymphadenopathy. No mediastinal or hilar lymphadenopathy seen. The heart is normal in size. There is trace pericardial fluid. No pleural effusion visualized. The imaged upper abdomen is within normal limits. No pulmonary embolism identified. No thoracic aneurysm or dissection. Procedure Note Andrea Ndiaye MD - 05/15/2019 CT PE Protocol Clinical Indication: Chest pain, unspecified. COMPARISON: None. Technique: The pulmonary embolus protocol was utilized. Axial CT images from the lung apices to the lung bases were obtained following Isovue 370, 80 cc intravenous contrast administration. Multiplanar maximum intensity projection reconstructions were created on an independent workstation. Findings: No airspace disease or pulmonary edema. The central airways are clear. There is no bronchial wall thickening or bronchiectasis. No acute osseous abnormality or osseous lesion identified. No supraclavicular or axillary lymphadenopathy. No mediastinal or hilar lymphadenopathy seen. The heart is normal in size. There is trace pericardial fluid. No pleural effusion visualized. The imaged upper abdomen is within normal limits. No pulmonary embolism identified. No thoracic aneurysm or dissection. IMPRESSION No pulmonary embolism or other acute process identified within the chest. Reading Radiologist: Andrea Ndiaye MD on 05/15/2019 at 11:47 AM Zack Oliva MD CT ORDERABLES * CT ANGIO BRAIN NECK STROKE (05/15/2019 11:30 AM CDT) Anatomical Region Laterality Modality Head Computed Tomogra phy 05/15/2019 11:5 4 AM CDT Impressions 05/15/2019 11:56 AM CDT Unremarkable neck CTA. Brain: The internal carotid arteries, middle cerebral arteries, anterior cerebral arteries, vertebral arteries, posterior cerebral arteries, basilar artery, and branch vessels of the [place] are widely patent without evidence of vessel stenosis or vessel occlusion. No intracranial aneurysms are identified. There are no gross arterio-venous malformations. Using the NASCET criteria there is less than 50% stenosis bilateral intracranial internal carotid arteries. Impression: Unremarkable brain CTA Reading Radiologist: Ian Gross MD on 05/15/2019 at 11:56 AM Narrative 05/15/2019 11:[address] angiography neck CT angiography head CT 3-D reconstructed images on independent workstation Clinical Indication: Stroke and right-sided weakness Technique: Axial CT images from the transverse aortic arch through the cranial vertex were obtained following the administration of 80 cc Isovue-370 intravenous contrast. Multiplanar reformatted, maximum intensity projection, and volume rendered reconstructions of the arterial vasculature of the neck and brain was performed on an independent workstation. The stenosis calculations are based on NASCET criteria. Findings: Neck: There is wide patency of the common carotid, internal carotid, external carotid, and vertebral arteries. There is no evidence of vessel stenosis or vessel occlusion. Using the NASCET criteria there is less than 50% stenosis bilateral internal carotid arteries. Procedure Note Ian Gross MD - 05/15/[address] angiography head CT 3-D reconstructed images on independent workstation Clinical Indication: Stroke and right-sided weakness Technique: Axial CT images from the transverse aortic arch through the cranial vertex were obtained following the administration of 80 cc Isovue-370 intravenous contrast. Multiplanar reformatted, maximum intensity projection, and volume rendered reconstructions of the arterial vasculature of the neck and brain was performed on an independent workstation. The stenosis calculations are based on NASCET criteria. Findings: Neck: There is wide patency of the common carotid, internal carotid, external carotid, and vertebral arteries. There is no evidence of vessel stenosis or vessel occlusion. Using the NASCET criteria there is less than 50% stenosis bilateral internal carotid arteries. IMPRESSION Unremarkable neck CTA. Brain: The internal carotid arteries, middle cerebral arteries, anterior cerebral arteries, vertebral arteries, posterior cerebral arteries, basilar artery, and branch vessels of the [place] are widely patent without evidence of vessel stenosis or vessel occlusion. No intracranial aneurysms are identified. There are no gross arterio-venous malformations. Using the NASCET criteria there is less than 50% stenosis bilateral intracranial internal carotid arteries. Impression: Unremarkable brain CTA Reading Radiologist: Ian Gross MD on 05/15/2019 at 11:56 AM Zack Oliva MD CT ORDERABLES * XR CHEST PA AND LATERAL (05/15/2019 10:02 AM CDT) Anatomical Region Laterality Modality Chest Radiographic Deisy ging 05/15/2019 10:2 1 AM CDT Impressions 05/15/2019 10:21 AM CDT No acute disease in the chest. Reading Radiologist: Radha Stapleton MD on 05/15/2019 at 10:21 AM Narrative 05/15/2019 10:21 AM CDT PA AND LATERAL CHEST INDICATION: Chest pain, facial numbness FINDINGS: The lungs are clear. The mediastinal contour and heart size are within normal limits. The pulmonary vascularity is normal. The osseous structures are unremarkable. Procedure Note Radha Stapleton MD - 05/15/2019 PA AND LATERAL CHEST INDICATION: Chest pain, facial numbness FINDINGS: The lungs are clear. The mediastinal contour and heart size are within normal limits. The pulmonary vascularity is normal. The osseous structures are unremarkable. IMPRESSION No acute disease in the chest. Reading Radiologist: Radha Stapleton MD on 05/15/2019 at 10:21 AM Zack Oliva MD DIAGNOSTIC IMAGING O RDERABLES * HEMOGLOBIN A1C (05/15/2019 9:44 AM CDT) Hemoglobin A1c 4.9 4.0 - 6.1 % 05/15/2019 1:40 PM CDT [facility] Estimated Average Glucose 94 mg/dL 05/15/2019 1:40 PM CDT [facility] Blood BLOOD SPECIMEN / Unknown Venipuncture / Unknown 05/15/2019 9:44 AM CDT 05/15/2019 9:55 AM CDT Zack Oliva MD LAB - CHEMISTRY DAGO NAVA Performing Organization Address [facility] Co de Phone Number [facility] [address] [place] [address] * HCG BLOOD QUALITATIVE (05/15/2019 9:44 AM CDT) Pathologist [facility] HCG Qual Serum Negative Negative 05/15/2019 10:08 AM CDT [facility] Blood BLOOD SPECIMEN / Unknown Venipuncture / Unknown 05/15/2019 9:44 AM CDT 05/15/2019 9:55 AM CDT Zack Oliva MD LAB - CHEMISTRY DAGO NAVA Performing Organization Address [facility] Co de Phone Number [facility] [address] [place] [address] * INR WHOLE BLOOD - POINT OF CARE (IP) STROKE (05/15/2019 9:20 AM CDT) Pathologist [facility] INR POCT 0.9 0.9 - 1.2 DP POCT TESTING QC Verified Yes Yes [facility] POC T TESTING Blood BLOOD SPECIMEN / Unknown 05/15/2019 9:20 AM CDT Zack Oliva MD LAB - POINT OF CARE ORDERABLES Performing Organization Address [facility] Co de Phone Number [facility] POCT TESTING [address] [place], [place] [address] [phone] * CREATININE BLOOD - POINT OF CARE (IP) (05/15/2019 9:20 AM CDT) Pathologist [facility] Creatinine POCT 0.86 0.7 - 1.2 mg/dL [facility] POCT TESTING QC Verified Yes Yes [facility] POC T TESTING Blood BLOOD SPECIMEN / Unknown 05/15/2019 9:20 AM CDT Zack Oliva MD LAB - POINT OF CARE ORDERABLES [facility] [address] [phone] * CT HEAD - NON CONTRAST (05/15/2019 9:16 AM CDT) Anatomical Region Laterality Modality Head Computed Tomogra phy 05/15/2019 9:24 AM CDT Impressions 05/15/2019 9:25 AM CDT Unremarkable unenhanced CT scan of the brain. Reading Radiologist: Radha Stapleton MD on 05/15/2019 at 9:25 AM Narrative 05/15/2019 9:[address] Head Noncontrast Indication: Right-sided weakness CVA Technique: CT images of the brain were obtained at 5 mm intervals without contrast. Findings: There is no radiographic evidence of intracranial hemorrhage. There is no mass-effect or midline shift. Ventricles and sulci are of normal size. The visualized paranasal sinuses are clear. Procedure Note Radha Stapleton MD - 05/15/2019 CT Head Noncontrast Indication: Right-sided weakness CVA Technique: CT images of the brain were obtained at 5 mm intervals without contrast. Findings: There is no radiographic evidence of intracranial hemorrhage. There is no mass-effect or midline shift. Ventricles and sulci are of normal size. The visualized paranasal sinuses are clear. IMPRESSION Unremarkable unenhanced CT scan of the brain. Reading Radiologist: Radha Stapleton MD on 05/15/2019 at 9:25 AM Zack Oliva MD CT ORDERABLES * TYPE + SCREEN PANEL (05/15/2019 9:13 AM CDT) ABO B 05/15/2019 9:53 AM CDT [facility] Rh Type Positive 05/15/2019 9:53 AM CDT [facility] Comment:History checked. Col lect retype. Antibody Screen Negative 05/15/2019 9:53 AM CDT [facility] Blood Bank BLOOD SPECIMEN / Unknown Venipuncture / Unknown 05/15/2019 9:13 AM CDT 05/15/2019 9:13 AM CDT Zack Oliva MD LAB - BLOOD BANK ORD ERABLES [facility] [id number] * COAGULATION PANEL W D-DIMER (05/15/2019 9:13 AM CDT) PT 9.8 9.5 - 11.6 sec 05/15/2019 10:03 AM CDT [facility] INR 0.9 0.9 - 1.1 05/15/2019 10:03 AM CDT [facility] PTT 22.7 21.0 - 32.0 sec 05/15/2019 10:03 AM T [facility] Fibrinogen 367 200 - 400 mg/dL 05/15/2019 10:03 AM T [facility] D-Dimer 0.39 0.17 - 0.5 mg/L FEU 05/15/2019 10:03 AM [facility] Platelet Count 334 153 - 416 x10E9/L 05/15/2019 10:03 AM [facility] Blood BLOOD SPECIMEN / Unknown Venipuncture / Unknown 05/15/2019 9:13 AM CDT 05/15/2019 9:13 AM CDT Narrative [facility] - 05/15/2019 10:03 AM CDT Conventional Warfarin Anticoagulant Therapy INR Reference Range: 2.0-3.0 Intensive Warfarin Anticoagulant Therapy INR Reference Range: 2.5-3.5 Heparin Therapeutic Range for PTT: 50.5 - 74.3 seconds. The [employer] D-Dimer assay is intended for use as an aid in diagnosis of venous thromboembolism [(VTE): deep vein thrombosis (DVT), pulmonary embolism (PE), and disseminated intravascular coagulation (DIC)], and has received U.S. Food and Drug Administration (FDA) approval to exclude VTE in patients with low or moderate pretest probability of PE or DVT (per Wells' rules). At a clinical cut-off value 0.50 mg/L FEU, the Negative Predictive Value of this assay is 99.8% for excluding PE and 100% for excluding DVT. A very low percentage of patients with VTE may yield D-Dimer results below the cut-off value. An elevated D-Dimer result has low specificity (40.4% for PE, 35.5% for DVT) and is a poor predictor of VTE. An elevated D-Dimer result may indicate DIC in the appropriate clinical setting. Results of this test should always be interpreted in conjunction with the patient's medical history, clinical presentation, and other findings. Zack Oliva MD LAB - COAGULATION OR DERABLES [facility] [address] [place] [address] * (ABNORMAL) COMPREHENSIVE METABOLIC PANEL (05/15/2019 9:13 AM CDT) Glucose 89 74 - 106 mg/dL 05/15/2019 9:32 AM CDT [facility] Sodium 138 136 - 145 mmol/L 05/15/2019 9:32 AM CDT [facility] Potassium 4.0 3.5 - 5.1 mmol/L 05/15/2019 9:32 AM CDT [facility] Chloride 107 98 - 107 mmol/L 05/15/2019 9:32 AM CDT [facility] CO2 21(L) 23 - 31 mmol/L 05/15/2019 9:32 AM CDT [facility] Calcium 9.0 8.4 - 10.2 mg/dL 05/15/2019 9:32 AM CDT [facility] Anion Gap 10 8 - 16 mmol/L 05/15/2019 9:32 AM CDT [facility] BUN 11 7 - 18.7 mg/dL 05/15/2019 9:32 AM CDT [facility] Creatinine 0.76 0.55 - 1.02 mg/dL 05/15/2019 9:32 AM CDT [facility] Alkaline Phosphatase 82 40 - 150 U/L 05/15/2019 9:32 AM CDT [facility] ALT 15 13 - 61 U/L 05/15/2019 9:32 AM CDT [facility] AST 15 5 - 34 U/L 05/15/2019 9:32 AM CDT [facility] Protein Total 7.2 6.4 - 8.3 gm/dL 05/15/2019 9:32 AM CDT [facility] Albumin 4.1 3.5 - 5.2 gm/dL 05/15/2019 9:32 AM CDT [facility] Bilirubin Total 0.5 0.2 - 1.0 mg/dL 05/15/2019 9:32 AM CDT [facility] eGFR by MDRD >60 >60 mL/min/1.7 3m2 05/15/2019 9:32 AM CDT [facility] eGFR by MDRD >60 >60 mL/min/1.7 3m2 05/15/2019 9:32 AM CDT [facility] Blood BLOOD SPECIMEN / Unknown Venipuncture / Unknown 05/15/2019 9:13 AM CDT 05/15/2019 9:13 AM CDT Zack Oliva MD LAB - CHEMISTRY DAGO NAVA Performing Organization Address City/[facility]/ZIP Co de Phone Number [facility] [address] [place] [address] * GLUCOSE - POINT OF CARE (05/15/2019 9:04 AM CDT) [facility] Signature Glucose WB/POC 94 70 - 106 mg/dL 05/17/2019 3:54 AM CDT [facility] Specimen Type Venous 05/17/2019 3:54 AM CDT [facility] Blood BLOOD SPECIMEN / Unknown 05/15/2019 9:04 AM CDT 05/17/2019 3:54 AM CDT Zack Oliva MD LAB - POINT OF CARE ORDERABLES Performing Organization Address City/[facility]/ZIP Co de Phone Number [facility] [address] [place] [address] Care Teams Circle Edger Relationship Specialty Start Date End Date Pedro Pablo Fall MD PCP - General 06/10/18
--- OUTSIDE RECORDS SUMMARY | 2024-11-14 18:48 | XMS_ITS | Clinical Summary ---
Author Organization [facility] Address Formerly [facility] [place] [address] Care Team Providers Care Spring Winder Name Role Phone Christina Kuo MD Primary Care Provider [phone] Allergies Active Allergy Reactions Criticality Noted Date Comments Diphenhydramine Swelling 03/31/2021 Rivaroxaban Other (see comment) High 02/09/2021 PARALYSIS Ketorolac Tromethamine Swelling High 03/09/2019 Vancomycin Itching 03/31/2021 Itching, no hives or rash. Medications enoxaparin 40 MG/0.4ML Solution Inject 40 mg into the skin daily. 0 Active albuterol sulfate HFA 108 (90 Base) MCG/ACT inhaler Inhale 2 puffs into the lungs every 4 (four) hours as needed for Wheezing or Shortness of breath. 1 g 1 Active nystatin powder Apply topically 2 (two) times daily. 1 g 1 Active Riboflavin 100 MG Cap Take 100 mg by mouth 2 (two) times a day. 60 capsule 1 Active magnesium oxide 400 MG tablet Take 1 tablet (400 mg total) by mouth 3 (three) times a week. 30 tablet 1 Active Active Problems Problem Noted Date Diagnosed Date Sepsis ([facility]) 03/31/2021 Factor V Leiden ([facility]) 03/31/2021 Hydronephrosis of right kidney 03/31/2021 Migraines 03/31/2021 Overview (03/31/2021): complex migraines with leg numbness (spontaneous vaginal delivery) ([facility]) Hypokalemia 10/17/2020 Mild intermittent asthma ([facility]) 10/17/2020 Anticoagulated 10/12/2020 History of pancreatitis 10/12/2020 History of pulmonary embolism 10/12/2020 Abdominal pain 09/23/2019 Immunizations Name Administration Dates Next Due Afluria 36 MONTHS+ (Prefilled Syringe IIV4) 09/03 Social History Tobacco Use Types Packs/Day Years Used Date Smoking Tobacco: Former Smokeless Tobacco: Never Comments:social Alcohol Use Standard Drinks/Week Comments No 0 (1 standard drink = 0.6 oz pur e alcohol) AUDIT-C Answer Date Recorded Frequency of Alcohol Consumption Never 12/01/2018 Average Number of Drinks Not on file 019 Frequency of Binge Drinking Not on file 09/2018 Comments No Sex and Gender Information Value Date Recorded Sex Assigned at Not on file Legal Sex Female 1:58 PM [employer] Gender Identity Not on file Sexual Orientation Not on file Last Filed Vital Signs Vital Sign Reading Time Taken Comments Blood Pressure 121/72 04/03/2021 4:23 AM CDT Pulse 79 04/03/2021 4:23 AM CDT Temperature 36.8 C (98.2 F) 04/03/2021 4:23 AM CDT Respiratory Rate 18 04/03/2021 4:23 AM CDT Oxygen Saturation 97% 04/03/2021 4:23 AM CDT Inhaled Oxygen Concentration - - Weight 85.8 kg (189 lb 2.5 oz) 04/03/2021 4:23 A M CDT Height 167.6 cm (5' 6 ) 03/31/2021 12:57 AM CDT Body Mass Index 30.53 03/31/2021 12:57 AM CDT Plan of Treatment Health Maintenance Due Date Last Done Comments Cervical Cancer Screening Pap Smear (Age 21 to 29) Every 3 Years 1998 Cervical Cancer Screening 1998 Hepatitis B Vaccines (3 of 3 - 3-dose series) 1998 1998, 1998 Annual Physical 2001 Pneumococcal Vaccine: Pediatrics (0 to 5 Years) and At-Risk Patients (6 to 64 Years) (1 of 2 - PCV) 02/15/2004 HPV Vaccines (1 - 3-dose series) 2013 COVID-19 Vaccine ( - season) 2024 Influenza Adult (#1) 2024 09/23/2019 DTaP, Tdap and Td Vaccines (8 - Td or Tdap) 01/18/2031 01/18/2021, 05/01/2018, 04/18/2010, Additional history exists Meningococcal Vaccine Aged Out 04/28/2015 No roland stanislav eligible based on patient's age to complete this topic Hepatitis C Completed 03/13/2021 Meningococcal B Vaccine Aged Out No l onger eligible based on patient's age to complete this topic RSV Immunizations Under 20 Months Aged Out No longer eligible based on patient's age to complete this topic Goals Goal Patient Goal Type Associated Problems Recent Progress Patient-Stated? Author Safety - demonstrates understanding of home safety measures General No Daisy Knox RN Insurance MEDICAID [facility] Advance Directives * Full Code (Latest Code Status on File) Date Activated Date Inactivated Comments 03/31/2021 4:14 AM 04/03/2021 3:13 PM * Full Code Date Activated Date Inactivated Comments 09/23/2019 2:06 AM 09/23/2019 3:11 PM * Full Code Date Activated Date Inactivated Comments 09/23/2019 12:56 AM 09/23/2019 2:06 AM Care Teams Spring Winder Relationship Specialty Start Date End Date Christina Kuo MD PCP - General FAMILY PRACTICE 09/22/19
--- OUTSIDE RECORDS SUMMARY | 2024-11-14 18:48 | XMS_ITS | Referral Summary ---
Author Organization [facility] Address [address] [place] [address] Care Team Providers Care Control Inspector Name Role Phone Pedro Pablo Fall MD Primary Care Provider [phone] Source Comments [facility],non-owned Affiliates and Associated Physician Practices is amultiple site organization consisting of ambulatory clinics and hospital sitesin [place], [place], [place] and [place]. This disclosure is being madepursuant to the Care Everywhere program and may not contain all information available regarding this patient. Last updated 18.[facility] Allergies Active Allergy Reactions Criticality Noted Date [...] Mass Index 29.95 05/15/2019 10:04 AM CDT Functional Status Functional Status Response Date of Assess ment Is person deaf or have serious hearing difficult y? No 05/15/2019 Is person blind or have serious difficulty seein g? No 05/15/2019 Does person have serious dif ficulty walking/climbing stairs? No 05/15/2019 Does person have difficulty dressing/bathing? No 05/15/2019 Does person have difficulty doing errands alone? No 05/15/2019 Cognitive Status Response Date of Assessm ent Does person have difficulty concentrating/remembering/making decisions? No 05/15/2019 Plan of Treatment Not on file Advance Directives * Full Code (Latest Code Status on File) Date Activated Date Inactivated Comments 05/15/2019 1:18 PM 05/16/2019 9:28 PM Care Teams Control Inspector Relationship Specialty Start Date End Date Pedro Pablo Fall MD PCP - General 06/10/18
[2024-11-14 18:55] VITALS: BP 119/72; PULSE 124; RESP 20; TEMP 37.3; O2SAT 100
[2024-11-14 19:06] VITALS: TEMP 38.1
--- NOTE | 2024-11-14 19:14 | ED.URI ---
HPI - URI/Sore Throat General Chief Complaint: Upper Respiratory Infection Stated Complaint: cough/phlegm/labored breathing/vomiting History of Present Illness HPI Narrative: 24-year-old female presents today with complaints of a cough that started about 2 weeks ago. States it feels thickened like it is stuck in her throat. Saturday she started with fever, body aches, chills. States she does not really have much of a fever the morning but it spikes at night sometimes up to 103. 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 Had 2 kids that just had the flu but that was 3 weeks ago. Is having increased shortness of breath. 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 Has been using DayQuil without much relief. Some spells are causing her nausea. Denies vomiting but she does cough so much that she feels like she vomits. She also does state that she thinks that there is black mold at her house which she has been dealing with her landlord. elicited complaint: fever Related Data Home Medications ?Medication ?Instructions ?Recorded ?Confirmed ?Last Taken ?Type sertraline 50 mg tablet mg 11/14/24 Unknown History Allergies Allergy/AdvReac Type Severity Reaction Status Date / Time diphenhydramine (From Allergy Severe Anaphylactic Verified 11/14/24 18:56 Benadryl) Shock ketorolac Allergy Severe Anaphylactic Verified 11/14/24 18:56 Shock morphine AdvReac Hallucinati Verified 11/14/24 18:56 ng Review of Systems Review of Systems: All systems reviewed & are unremarkable except as noted in HPI and below Eyes: Eyes: Reports as per HPI ENT: Reports as per HPI Cardiovascular: Cardiovascular: Reports as per HPI Respiratory: Respiratory: Reports as per HPI Genitourinary: Genitourinary: Reports as per HPI Musculoskeletal: Musculoskeletal: Reports as per HPI Integumentary/Breasts: Skin/Breast: Reports as per HPI Neurologic: Reports as per HPI Psychiatric: Psychiatric: Reports as per HPI Endocrine: Endocrine: Reports as per HPI Hematologic/Lymphatic: Hematologic/Lymphatic: Reports as per HPI Allergic/Immunologic: Allergic/Immunologic: Reports as per HPI [facility] Past Medical History Medical History Anxiety Asthma exercise induced Factor V Leiden History of pulmonary embolism after first Migraine Pancreatitis PTSD (post-traumatic stress disorder) Surgical History Surgical History History of cholecystectomy History of tonsillectomy Family History Family History Father Diabetes mellitus Patient's father is in good health Grandparent Diabetes mellitus Hypertension Mother Patient's mother is in good health Sibling Patient's sister is in good health Social History Social History Smoking status: Never smoker Second hand tobacco smoke exposure: No Alcohol intake: never Substance use: current Substance use type: marijuana Other substance usage details: smokes marijuana every other day Living arrangements: with family Gender identity (if verbalized by the patient): Female Sexual Orientation (if Verbalized by the Patient): Straight or Heterosexual Spiritual care concerns: No Exam Const: General: cooperative, healthy appearing, comfortable, no acute distress and well developed Orientation/consciousness: patient oriented x3 HENMT: Head: normal to inspection Ears: external ears normal Throat: posterior oropharynx abnormal erythema Eyes: General: appearance normal, both eyes and all related structures Resp: Effort & Inspection: normal respiratory effort and able to speak in complete sentences Auscultation: clear to auscultation bilaterally Cardio: Rate: regular rate Rhythm: regular rhythm Heart sounds: S1 normal heart sound present and S2 normal heart sound present Skin: General skin exam: normal color Neuro: General: patient oriented x3 Cognition (Neuro): normal cognition Speech: normal speech Psych: Mental Status: mental status grossly normal Course Course Level of Care: Express Care Visit Vital Signs Vital signs: Vital Signs Temperature 99.1 F 11/14/24 18:55 Pulse Rate 124 H 11/14/24 18:55 Respiratory Rate 20 11/14/24 18:55 Blood Pressure 119/72 11/14/24 18:55 Pulse Oximetry 100 11/14/24 18:55 Oxygen Delivery Room Air 11/14/24 18:55 Temperature 100.5 F H 11/14/24 19:06 Pulse Rate 124 H 11/14/24 18:55 Respiratory Rate 20 11/14/24 18:55 Blood Pressure 119/72 11/14/24 18:55 Pulse Oximetry 100 11/14/24 18:55 Oxygen Delivery Room Air 11/14/24 18:55 MDM - URI/Sore Throat MDM Narrative Medical decision making narrative: 24-year-old female HPI started. Differentials include but not limited to influenza, pneumonia, viral infection, sinusitis, URI. Patient with a cough for 2 weeks. Due to this with a fever onset of 5 days ago will get a chest x-ray to rule out pneumonia. COVID and influenza swabs completed. Swabs are positive for influenza a but again due to the 2 week of cough will continue with chest x-ray. chest x-ray with no acute cardiopulmonary findings. Discussed with patient. At this time she cannot be treated with Tamiflu due to symptoms onset of 5 days ago. Symptomatic treatment. Differential Diagnosis Differential diagnosis: Likely upper respiratory infection Medical Records Attestation: I reviewed the patient's medical records. Lab Data Attestation: I reviewed the patient's lab results. Labs: Lab Results 11/14/24 Range/Units 19:20 POC Influenza A Ag Positive (Negative) POC Influenza B Ag Negative (Negative) POC SARS CoV-2 Ag Negative (Negative) Discharge Plan Discharge Clinical Impression: Influenza A Patient Disposition: Home, Self-Care Condition: Stable Instructions: Antibiotic Form, Influenza (DC) Additional Instructions: Her chest x-ray showed no acute findings so no pneumonia. He did test positive for influenza A. Your symptoms did start on Saturday so just symptomatic treatment at this point. Tylenol and or ibuprofen as we discussed for fever. Albuterol as needed for shortness of breath. Mucinex DM per prescription for cough and congestion and a low-density drawn as needed for nausea. Make sure to push fluids. Advance diet as tolerated. Return with any new or worsening symptoms. To the ER with severe shortness of breath and chest pain or emergent matters. Patient Language: Polish Prescriptions: New dextromethorphan-guaifenesin [Mucinex Fast-Max DM Max] 5-100 mg/5 mL liquid 10 ml PO Q4H PRN (Reason: cough) Qty: 500 0RF acetaminophen 500 mg tablet See Rx Instructions .ROUTE .COMPLEX PRN (Reason: fever or pain) Qty: 90 0RF Rx Instructions: 1-2 tablets every 6 to 8 hours as needed for pain or fever do not do more than 3000mg in one day albuterol sulfate [Ventolin HFA] 90 mcg/actuation HFA aerosol inhaler 2 puff inhalation QID PRN (Reason: shortness of breath or wheezing) Qty: 8.5 0RF ondansetron 4 mg tablet,disintegrating 4 mg PO Q8H PRN (Reason: nausea and vomiting) Qty: 14 0RF No Action sertraline 50 mg tablet Follow-up/Referrals: UNKNOWN,DOCTOR [Primary Care Provider] - Time of Disposition: 19:48
[2024-11-14 19:22] LABS: EDCOVIDSCREEN Negative (Negative); EDINFLUASCREEN Positive (Negative); EDINFLUBSCREEN Negative (Negative)
== END 2024-11-14 19:51 | disposition home or self-care (01) ==
PROVIDERS: Emergency Provider Nurse Practitioner Family
DX: J10.1 Influenza due to other identified influenza virus with other respiratory manifestations (principal); Z20.822 Contact with and (suspected) exposure to COVID-19; J45.990 Exercise induced bronchospasm; D68.51 Activated protein C resistance; Z86.711 Personal history of pulmonary embolism
CPT/HCPCS: 71046; 87426; 87804; 99213; G0463

== ENCOUNTER 2025-07-01 09:22 | Emergency (ER) | payer OTHER, SELFPAY ==
[2025-07-01 09:31] VITALS: BP 117/81; PULSE 114; RESP 18; TEMP 36.4; O2SAT 98
--- NOTE | 2025-07-01 09:32 | ED.URI ---
HPI - URI/Sore Throat General Chief Complaint: Upper Respiratory Infection Stated Complaint: Sore throat / Ear Pain Time Seen by Provider: 07/01/25 09:33 Source: patient Mode of arrival: ambulatory Limitations: no limitations History of Present Illness HPI Narrative: 25-year-old female presents complaint cough, congestion, hoarse voice, sore throat for 2-3 days. Reports low-grade fever. Denies nausea vomiting diarrhea. No chest pain or shortness of breath. All Systems reviewed and negative except as noted above. Related Data Allergies Allergy/AdvReac Type Severity Reaction Status Date / Time diphenhydramine (From Allergy Severe Anaphylactic Verified 07/01/25 09:31 Benadryl) Shock ketorolac Allergy Severe Anaphylactic Verified 07/01/25 09:31 Shock morphine AdvReac Hallucinati Verified 07/01/25 09:31 ng PMFSH Past Medical History Medical History Anxiety Asthma exercise induced Factor V Leiden History of pulmonary embolism after first Migraine Pancreatitis PTSD (post-traumatic stress disorder) Surgical History Surgical History History of cholecystectomy History of tonsillectomy Family History Family History Father Diabetes mellitus Patient's father is in good health Grandparent Diabetes mellitus Hypertension Mother Patient's mother is in good health Sibling Patient's sister is in good health Social History Social History Smoking status: Never smoker Second hand tobacco smoke exposure: No Alcohol intake: never Substance use: current Substance use type: marijuana Other substance usage details: smokes marijuana every other day Living arrangements: with family Gender identity (if verbalized by the patient): Female Sexual Orientation (if Verbalized by the Patient): Straight or Heterosexual Spiritual care concerns: No Comments At time of signature, agree with nursing past medical, surgical, social and family history. There is no relevant family history pertinent to the presenting complaint. Exam Narrative: GENERAL: This is a well-nourished, well-developed patient, in no apparent distress. HEAD: normocephalic, atraumatic. EYES: PERRL. Sclera clear/white. Vision is grossly intact. EARS: External ears normal, auditory canals clear and without drainage, TMs normal without perforation. Hearing grossly intact. NOSE: External nose normal with clear nasal drainage THROAT: Mucous membranes moist, posterior pharynx clear. NECK: Neck supple, non-tender without lymphadenopathy, masses or thyromegaly. CARDIOVASCULAR: Regular rate and rhythm without murmurs, gallops, or rubs. RESPIRATORY: Clear to auscultation. Breath sounds equal bilaterally. No wheezes, rales, or rhonchi. SKIN: warm, Dry, intact with no suspicious lesions or rash, good texture and turgor. NEURO: awake, alert, and oriented to person, place and time. There were no obvious focal neurologic abnormalities. EXTREMITIES: No joint tenderness, effusion, or edema noted. Course Course Level of Care: Express Care Visit Vital Signs Vital signs: Vital Signs Temperature 36.4 C 07/01/25 09:31 Pulse Rate 114 H 07/01/25 09:31 Respiratory Rate 18 07/01/25 09:31 Blood Pressure 117/81 07/01/25 09:31 Pulse Oximetry 98 07/01/25 09:31 Oxygen Delivery Room Air 07/01/25 09:31 Temperature 36.4 C 07/01/25 09:31 Pulse Rate 114 H 07/01/25 09:31 Respiratory Rate 18 07/01/25 09:31 Blood Pressure 117/81 07/01/25 09:31 Pulse Oximetry 98 07/01/25 09:31 Oxygen Delivery Room Air 07/01/25 09:31 reviewed MDM - URI/Sore Throat MDM Narrative Medical decision making narrative: negative COVID, influenza and strep. Strep culture ordered. Patient is alert, nontoxic. Recommend [id number] medications to treat viral symptoms. Differential Diagnosis Differential diagnosis: Likely upper respiratory infection, sinusitis, viral infection, influenza and pharyngitis Lab Data Labs: Lab Results 07/01/25 07/01/25 Range/Units 09:52 10:06 POC Influenza A Ag Negative (Negative) POC Influenza B Ag Negative (Negative) POC SARS CoV-2 Ag Negative (Negative) POC Grp A Strep Screen Negative (Negative) Discharge Plan Discharge Clinical Impression: Viral upper respiratory tract infection with cough Patient Disposition: Home Condition: Stable Instructions: Upper Respiratory Infection (ED) Additional Instructions: Take medications as prescribed. Take ibuprofen or Tylenol every 6-8 hours as needed for pain and fever. Drink at least 64 oz of water a day. Place cool mist humidifier in bedroom where you sleep. Follow-up with your primary care physician if symptoms are not improving. Patient Language: Cook Islander Prescriptions: New benzonatate 200 mg capsule 200 mg PO TID PRN (Reason: cough) Qty: 20 0RF fluticasone propionate [Flonase Allergy Relief] 50 mcg/actuation spray,suspension 1 spray intranasal BID Qty: 16 0RF Rx Instructions: administer into each nostril No Action albuterol sulfate [Ventolin HFA] 90 mcg/actuation HFA aerosol inhaler 2 puff inhalation QID PRN (Reason: shortness of breath or wheezing) Qty: 8.5 0RF Follow-up/Referrals: Mayo,ANGEL Johnson [Primary Care Provider, [facility]] Time of Disposition: 10:11
[2025-07-01 09:53] LABS: EDSTREPNEGPOS1 Negative (Negative)
--- OUTSIDE RECORDS SUMMARY | 2025-07-01 10:03 | XMS_ITS | Clinical Summary ---
Author Organization [facility] [employer] Address [address] [place] [address] Care Team Providers Care Strategic Alliances Manager Name Role Phone Pedro Pablo Fall MD Primary Care Provider [phone] Source Comments [facility] [employer],non-owned Affiliates and Associated Physician Practices is amultiple site organization consisting of ambulatory clinics and hospital sitesin [place], [place], [place] and [place]. This disclosure is being madepursuant to the Care Everywhere program and may not contain all information available regarding this patient. Last updated 18.[facility] [employer] Allergies Active Allergy Reactions Criticality Noted Date Comments Ketorolac Anaphylaxis High 05/15/2019 Medications * Be aware that medications may not be up to date on this document. Alwaysverify current medications with the patient. No known [...] of Binge Drinking Not on file 05/03 Comments No Sex and Gender Information Value Date Recorded Sex Assigned at Not on file Legal Sex Female 5:39 AM INGREDIENT MIXER Gender Identity Not on file Sexual Orientation [...] 10:04 AM CDT Height 165.1 cm (5' 5) 05/15/2019 10:04 AM CDT Body Mass Index 29.95 05/15/2019 10:04 AM CDT Plan of Treatment Health Maintenance Due Date Last Done Comments HIV SCREENING 2013 HEPATITIS C SCREENING 02/10/2016 DTAP/TDAP/TD VACCINES (1 - Tdap) 2017 HEPATITIS B VACCINE (1 of 3 - 19+ 3-dose series) 2017 DEPRESSION SCREENING 09/02/2024 HPV VACCINE (1 - 3-dose SCDM series) 2025 COVID-19 VACCINE (1 - 2023-2 5 season) 2025 INFLUENZA VACCINE (#1) 2025 ZOSTER VACCINE (1 of 2) 02/15/2048 HIB [...] on patient's age to complete this topic Insurance [employer] Advance Directives * Full Code (Latest Code Status on File) Date Activated Date Inactivated Comments 05/15/2019 1:18 PM 05/16/2019 9:28 PM Care Teams Strategic Alliances Manager Relationship Specialty Start Date End Date Pedro Pablo Fall MD PCP - General 06/10/18
--- OUTSIDE RECORDS SUMMARY | 2025-07-01 10:03 | XMS_ITS | Patient Health Record ---
Author Organization [facility] [employer] [facility] Address [address] [place] [address] [address] [facility] [address] [place] [address] Care Team Providers Care Farm Crew Leader Name Role Phone Dusty Teresa Unavailable [phone] Reason For Referral No Information Plan Of Treatment No Information
[2025-07-01 10:07] LABS: EDCOVIDSCREEN Negative (Negative)
[2025-07-01 10:08] LABS: EDINFLUASCREEN Negative (Negative); EDINFLUBSCREEN Negative (Negative)
== END 2025-07-01 10:14 | disposition home or self-care (01) ==
PROVIDERS: Emergency Provider Nurse Practitioner Family; PCP Physician Assistant
DX: J06.9 Acute upper respiratory infection, unspecified (principal); B97.89 Other viral agents as the cause of diseases classified elsewhere; Z20.822 Contact with and (suspected) exposure to COVID-19
CPT/HCPCS: 87081; 87426; 87804; 87880; 99213; G0463